=== PATIENT | female | born 1975 | race Caucasian/White ===

== ENCOUNTER 2023-10-05 15:34 | Emergency (ER) | payer MEDICARE, SELFPAY ==
[2023-10-05] VITALS (7 sets, daily range): BP systolic 108–148; BP diastolic 67–70; PULSE 75–93; RESP 13–20; TEMP 36.9; O2SAT 100
--- NOTE | ~2023-10-05 | CT_ITS ---
EXAMINATION: CT brain wo con DATE: 10/05/2023 18:35 INDICATION: Headaches. Numbness to the face. Fogginess. TECHNIQUE: Computed tomography (CT) of the head was performed without intravenous contrast. Sagittal and coronal reconstructions were performed. The mA was adjusted according to patient size. Iterative reconstruction technique was employed. The dose-length product was 681.00 mGy-cm. COMPARISON: None FINDINGS: No acute intracranial hemorrhage, acute infarction or abnormal extra axial fluid collection. Ventricl es are normal and symmetric. No mass/mass effect. There is mucosal thickening at the floor of the rig ht maxillary sinus which appears to surround a partially visualized tooth. Postoperative changes of a right middle turbinectomy and resection of the medial wall of the right maxillary sinus. The orbits and mastoid air cells are normal. IMPRESSION: 1. No acute intracranial process. Reviewed, dictated and finalized at location A. ET MAKER
--- NOTE | 2023-10-05 17:51 | ED.GENADULT ---
HPI - General Adult General Chief complaint: Allergic Reaction <HESHAM Garcia Last Filed: 10/05/23 18:03> Stated complaint: AMS, NUMB FACE, MIGRAINES <HESHAM Garcia Last Filed: 10/05/23 18:03> Time Seen by Provider: 10/05/23 17:52 <HESHAM Garcia Last Filed: 10/05/23 18:03> Focused HPI: Patient is a 47 y/o female who presents to the ED with c/o WRIGHT. Patient reports she has been having intermittent headaches for past few years, worsening over the past few weeks. Saw her PCP for this and started on Ubrelvy 3 weeks ago. She states she took this for 1 week but denied improvement of HAs. Current WRIGHT started last night and became severe today which prompted her presentation. She has not taken anything for pain. She complains of pressure in her frontal region. She also reports having dizziness, intermittent blurry vision, numbness double psych her face. She has also been having pain and numbness in her for the legs of the several weeks and was started on gabapentin by her primary care doctor on Wednesday. She is concerned she may be having a reaction to this. She states she feels foggy. Denies focal weakness, aphasia, slurred speech. Denies photophobia/phonophobia, N/V GENERAL: Anxious-appearing, well-nourished, and in no acute distress. HEAD: Normocephalic, atraumatic. EYES: PERRL EOMI conjunctiva clear. No nystagmus. CHEST: Clear to auscultation. ?No respiratory distress. HEART: Regular rate and rhythm.? NEURO: ?Alert and oriented x3. No focal deficits. Strength equal upper lower extremities bilaterally. Equal senior management consultant strength bilaterally PSYCH: Anxious, tearful. Patient screened in triage and initial orders placed.? ?Additional care and disposition to be based upon?diagnostic testing and treatment. <HESHAM Garcia Last Filed: 10/05/23 18:03> Related Data Allergies/adverse reactions: Allergies Allergy/AdvReac Type Severity Reaction Status Date / Time Penicillins Allergy Rash Verified 10/05/23 15:46 propoxyphene Allergy Rash Verified 10/05/23 15:46 [From Axel] <Luz Maria Knott PA-C - Last Filed: 10/05/23 18:03> Review of Systems Review of Systems: All systems as dictated in HPI <HESHAM Ross Last Filed: 10/06/23 02:31> Exam Narrative: GENERAL: Well-appearing, well-nourished, and in no acute distress. HEAD: Normocephalic, atraumatic. EYES: PERRLA and EOMI. ENT: Nares clear, no rhinorrhea or epistaxis. Mucous membranes moist. Oropharynx without tonsillar hypertrophy exudate or other lesions. NECK: Supple. No adenopathy or masses. CHEST: No respiratory distress. Clear to auscultation. No wheezes rales or rhonchi HEART: Regular rate and rhythm. No murmur heard. Normal peripheral pulses. ABDOMEN: Soft, nontender, nondistended, normal active bowel sounds. MSK: Normal range of motion. No edema. SKIN: Warm, dry, no rash. NEURO: Alert and oriented x4. No focal deficits. Ambulatory without difficulty PSYCH: Normal mood and affect. <HESHAM Ross Last Filed: 10/06/23 02:31> Course Vital Signs Vital signs: Vital Signs Temperature 98.5 F 10/05/23 15:43 Pulse Rate 87 10/05/23 15:43 Respiratory Rate 20 10/05/23 15:43 Blood Pressure 148/70 H 10/05/23 15:43 Pulse Oximetry 100 10/05/23 15:43 Temperature 98.5 F 10/05/23 15:43 Pulse Rate 75 10/05/23 21:16 Respiratory Rate 14 10/05/23 21:16 Blood Pressure 108/67 10/05/23 21:16 Pulse Oximetry 100 10/05/23 15:43 <HESHAM Garcia Last Filed: 10/05/23 18:03> Vital Signs Temperature 98.5 F 10/05/23 15:43 Pulse Rate 87 10/05/23 15:43 Respiratory Rate 20 10/05/23 15:43 Blood Pressure 148/70 H 10/05/23 15:43 Pulse Oximetry 100 10/05/23 15:43 Temperature 98.5 F 10/05/23 15:43 Pulse Rate 75 10/05/23 21:16 Respiratory Rate 14 10/05/23 21:16 Blood Pressure 108/67 02
[2023-10-05] MEDS: ACETAMINOPHEN 500 MG TABLET 1000 MG PO (18:21)
[2023-10-05] MEDS: diphenhydrAMINE HCl INJ 50 MG/ML VIAL 25 MG IV PUSH (18:22)
[2023-10-05] MEDS: METOCLOPRAMIDE HCL INJ 10 MG/2 ML VIAL IV PUSH (18:22)
[2023-10-05] MEDS: SODIUM CHLORIDE 0.9% IV 1,000 ML 999 ML IV CONT (18:26)
[2023-10-05] MEDS: KETOROLAC 30 MG/ML VIAL (*BKC) IV PUSH (20:30)
[2023-10-05] MEDS: MAGNESIUM SULF 1 GM/D5W 100 ML 1 GM/100 ML BAG IVPB (20:30)
== END 2023-10-05 21:51 | disposition home or self-care (01) ==
PROVIDERS: Emergency Provider Physician Assistant
DX: G43.909 Migraine, unspecified, not intractable, without status migrainosus (principal); T50.905A Adverse effect of unspecified drugs, medicaments and biological substances, initial encounter
CPT/HCPCS: 70450; 96361; 96365; 96375; 99284; A9270; J1200; J1885; J2765; J3475; J7030

== ENCOUNTER 2024-12-08 | Day surgery (SDC) | payer MEDICARE, SELFPAY ==
[2024-11-06 13:14] VITALS: BMI 32.1
--- OUTSIDE RECORDS SUMMARY | 2024-11-14 00:20 | XMS_ITS ---
Author Organization [facility] Address [address] [place] [address] Care Team Providers Care Tool Inspector Name Role Phone Roberto Carroll Primary Care Provider [phone] Karl Robles Unavailable [phone] REASON FOR VISIT Request for Linzess script. Medications Medication SIG (Take, Route, Fr equency, Duration) Notes Start Date End Date Status Linzess 290 MCG 1 capsule at least 30 minutes before the first meal of the day on an empty stomach Orally Once a day; Duration: 30 days As needed 09/19/2024 Active traZODone HCl 100 MG 2 tablet Orally Once a day; Duration: 30 days at bedtime Active Encounters Encounter Location Date Provider Diagnosis [address] [address] 09/18/2024 Karl Robles Plan Of Treatment Medication Medication Name Sig Start Date Stop Date Notes Linzess 290 MCG 1 capsule at least 3 0 minutes before the first meal of the day on an empty stomach Orally Once a day; Duration: 30 days 09/19/2024 traZODone HCl 100 MG 2 tablet Orally Onc e a day; Duration: 30 days Next Appt Details Provider Name:Roberto Fang en, 12/01/2024 11:00:00 AM, [address] [place] [address], [phone], [phone] Progress Notes * Giulia ORTIZOB:1975 (48 yo F)Acc No.[id number]:09/18/2024 Patient: Elise Anuja PATTON :1975 A ge:48 Y S ex:Female Phone: Address: [address], [place], [address] * Refills Refill traZODone HCl Tablet, 100 MG, Orally, 60 Tablet, 2 tablet, Once a day, at bedtime, 30 days, Refills=5 Start Linzess Capsule, 290 MCG, Orally, 30, 1 capsule at least 30 minutes before the first meal of the day on an empty stomach, Once a day, As needed, 30 days Subjective: * Chief Complaints: * R equest for Linzess script. * Medical History: * Surgical History: * Hospitalization/Major Diagno stic Procedure: * Medications: Objective: * Physical Examination: Plan: * Treatment: * Procedure Codes: Billing Information: * Visit Code: * Procedure Codes: * true * Date: Generated for Laureano pennington/Jessica/Kena on: 0 11/14/2024 12:20 AM CDT
--- OUTSIDE RECORDS SUMMARY | 2024-11-14 00:20 | XMS_ITS ---
Author Organization [facility] Address [address] [place] [address] Care Team Providers Care Sports Equipment Repairer Name Role Phone Dr. Pj Carroll Primary Care Provider Dr. Robin Bales Unavailable [phone] Aimee Mendez Unavailable [phone] REASON FOR VISIT Refills Medications Medication SIG (Take, Route, Frequency, Duration) Notes Start Date End Date Status Emgality 120 MG/ML 2 injections as LOADING DOSE for the first month Subcutaneous once for 28 days 09/13/2024 Active Emgality 120 MG/ML 1 injection as maintenance dose Subcutaneous once every 4 weeks for 28 days To start 4 weeks after the loading dose 10/11/2024 Active Encounters Encounter Location Date Provider Diagnosis [facility] [address] [place] [address] 09/05/2024 Aimee Mendez Migraine without aura, not intractable, without status migrainosus G43.009 Assessments Encounter Date Diagnosis (ICD Code) Assessment Notes Treatment Notes Treatment Clinical Notes Section Notes 09/05/2024 Migraine without aura, not intractable, without status migrainosus (ICD-10 - G43.009) Plan Of Treatment Medication Medication Name Sig Start Date Stop Date Notes Emgality 120 MG/ML 2 injections as LOAD ING DOSE for the first month Subcutaneous once for 28 days 09/13/2024 Emgality 120 MG/ML 1 injection as maintenance dose Subcutaneous once every 4 weeks for 28 days 10/11/2024 To start 4 weeks after the loading dose Next Appt Details Provider Name:Shyam Martinez/08/2025 07:30:00 AM, [address], [address], [place], [address], Progress Notes * Elmira ORTIZNatividadOB:1975 (48 yo F)Acc No.[id number]:09/05/2024 Patient: Anuja CLARK :1975 A ge:48 Y S ex:Female Address:[address] [place] [address] [place] [address] * Refills Refill Emgality Solution Auto-injector, 120 MG/ML, Subcutaneous, 1, 1 injection as maintenance dose, once every 4 weeks, 28 days, Refills=5 Start Emgality Solution Auto-injector, 120 MG/ML, Subcutaneous, 2, 2 injections as LOADING DOSE for the first month, once, 28 days, Refills=0 * true * Date: Generated for Laureano pennington/Jessica/Marioitting on: 0 11/14/2024 12:20 AM CDT
--- OUTSIDE RECORDS SUMMARY | 2024-11-14 00:20 | XMS_ITS | Patient Health Record ---
Author Organization [facility] Address [address] [place] [address] Care Team Providers Care Risk Mgr Name Role Phone Dr. Pj Carroll Primary Care Provider UnaDr. Robin Fairchild Unavailable [phone] [facility], Provider Unavailable Unavailab Aimee Culver Unavailable [phone] Allergies Allergen (clinical drug ingredient) Drug/Non Drug Allergy documented on EMR Reaction Allergy Type Onset Date Status DARVOCET (uncoded) rash Allergy A ctive penicillin V Penicillin V Potassium rash Drug Allergy Active Results Component Value Reference Range Notes ABN Option 3 Reviewed date:12/18/2023 08:59:41 AM Interpretation: Performing Lab:[facility] [id number], Phone - [phone], Director - Anastasia Notes/Report: ABN Option 3 One or more tests were removed at the request of the patient and may not be represented on this report. As a result, some or all of the tests originally requested may not have been performed or may be reported separately. Please contact your patient regarding any necessary follow-up. -Rheumatoid Arthritis Factor Reviewed date:12/18/2023 09:00:03 AM Interpretation:Normal Performing Lab:[facility], [address] [place], [place] [id number], Phone - [phone], Director - Ansatasia Notes/Report: Rheumatoid Factor (RF) <10.0 <14.0 IU/mL -Aldolase Reviewed date:12/20/2023 02:19:40 PM Interpretation:Normal Performing Lab:[facility], [address] [place], [place] [id number], Phone - [phone], Director - Anastasia Notes/Report: Aldolase 4.7 3.3-10.3 U/L -Creatine Kinase,Total,Serum Reviewed date:12/18/2023 08:59:49 AM Interpretation:Normal Performing Lab:[facility] [place], [address] [place], [place] [id number], Phone - [phone], Director - [facility] Notes/Report: Creatine Kinase,Total 75 32-182 U/L Reason For Referral No Information Medications Medication SIG (Take, Route, Frequency, Duration) Notes Start Date End Date Status Venlafaxine HCl ER 150 MG 1 cap(s) orally once a day Active traZODone HCl 50 MG as directed orally Active clonazePAM 0.5 MG 1 tab(s) orally 2 times daily Active Emgality 120 MG/ML 2 injections as LOADING DOSE for the first month Subcutaneous once for 28 days 09/13/2024 Active Emgality 120 MG/ML 1 injection as maintenance dose Subcutaneous once every 4 weeks for 28 days To start 4 weeks after the loading dose 10/11/2024 Active Zavzpret 10 MG 1 SPRAY INTRANASALLY ONCE DAILY, NO REPEAT DOSE *Please review and pick correct strength-formulat ion from [employer] options. If intended option is not shown, discontinue and re-order from Quick Search* 12/15/2023 Active Valium 5 MG 1 tab orally 20 minutes prior to MRI for 1 days 11/11/2023 Not-Taking Rizatriptan Benzoate 10 MG 1 tab orally once, can repeat x1 after 2-4 hours for 30 days 11/11/2023 Not-Taking Social History Tobacco Use: Social History Observation Description Date Details (start date - stop date) Never Smoker NA - NA Tobacco Control (Standard) Question Answer Notes Tobacco use: Nonsmoker Problems Problem Type SNOMED Code ICD Code Onset Dates Problem Status W/U Status Risk Notes Problem Chronic migraine without aura, non-refractory (disorder) (080389572222414) Migraine without aura, not intractable, without status migrainosus (G43.009) Active confirmed Problem Migraine with aura (5826998) Migraine with aura, not intractable, without status migrainosus (G43.109) Active confirmed Problem Chronic migraine without aura, non-intractable (550943249174316) Chronic migraine without aura, not intractable, without status migrainosus (G43.709) Active confirmed Problem Drug induced headache (804500000346341) Drug-induced headache, not elsewhere classified, not intractable (G44.40) Active confirmed Problem Degeneration of cervical intervertebral disc (98584915) Other cervical disc degeneration, unspecified cervical region (M50.30) Active confirmed Problem Cervicalgia (12666760) Cervicalgia (M54.2) Active confirmed Problem Fibromyalgia (239754058) Fibromyalgia (M79.7) Active confirmed Problem Paresthesia (finding) (03679117) Paresthesia of skin (R20.2) Active confirmed Problem Chronic fatigue syndrome (disorder) (12037317) Chronic fatigue, unspecified (R53.82) Active confirmed Problem Muscle pain (51905401) Myalgia, unspecified site (M79.10) Active confirmed Vital Signs Respiratory Rate 17 /min 06/29/2024 Oximetry 98 % 06/29/2024 Blood pressure diastolic 85 mm Hg 06/29/2024 Height 65 in 06/29/2024 Blood pressure systolic 139 mm Hg 06/29/2024 Weight 194.8 lbs 06/29/2024 BMI 32.41 kg/m2 06/29/2024 Encounters Encounter Location Date Provider Diagnosis [address] [address] 02/05/2024 Provider [facility]Migration Migraine without aura, not intractable, without status migrainosus G43.009 and Fibromyalgia M79.7 [facility] [address] [place] [address] 12/15/2023 Robin Montana Chronic migraine without aura, not intractable, without status migrainosus G43.709 ; Paresthesia of skin R20.2 ; Myalgia, unspecified site M79.10 ; Cervicalgia M54.2 and Other cervical disc degeneration, unspecified cervical region M50.30 [facility] [address] [place] [address] 01/20/2024 Robin Montana Migraine without aura, not intractable, without status migrainosus G43.009 ; Fibromyalgia M79.7 and Cervicalgia M54.2 [facility] [address] [place] [address] 04/06/2024 Robin Montana Migraine without aura, not intractable, without status migrainosus G43.009 ; Fibromyalgia M79.7 and Cervicalgia M54.[address] [address] 06/29/2024 Aimee Mendez Migraine without aura, not intractable, without status migrainosus G43.009 ; Fibromyalgia M79.7 and Cervicalgia M54.2 [facility] [place] [address] [place] [address] 12/09/2023 Robin Nan [facility] [place] [address] [place] [address] 12/15/2023 Robin Montana Chronic migraine without aura, not intractable, without status migrainosus G43.709 [facility] [place] [address] [place] [address] 12/16/2023 Robin Nan [facility] [place] [address] [place] [address] 12/21/2023 Robin Nan [facility] [place] [address] [place] [address] 04/06/2024 Robin Nan [facility] [place] [address] [place] [address] 06/28/2024 Robin Montana [address] [place] [address] 09/05/2024 Aimee Mendez Migraine without aura, not intractable, without status migrainosus G43.009 Assessments Encounter Date Diagnosis (ICD Code) Assessment Notes Treatment Notes Treatment Clinical Notes Section Notes 12/15/2023 Chronic migraine without aura, not intractable, without status migrainosus (ICD-10 - G43.709) -Abortive treatment plan: Zavzpret NS.-Preventive treatment plan: Start Ajovy. Patient counseled r.e. potential side effects.-Educated the patient on migraine lifestyle recommendations. I recommended the following measures: avoid known triggers of migraine, drink > 100 fluid ounces of non-caffeinated fluid daily, limit caffeine to 2 servings/day, sleep 7-8 hours/night and address any sleep concerns with us and report symptoms of snoring or fatigue; healthy management of stress; avoid treating headaches more than 2 days/week with abortive medication unless approved in treatment plan; can take Riboflavin 400 mg and Magnesium 500 mg daily as supplements; keep scheduled follow-up appointments 12/15/2023 Paresthesia of skin (ICD-10 - R20.2) Additional labs: Vit D (25-OH), A1c, CPK, aldolase, RF ([facility]). Consider NCS/EMG and/or skin punch to evaluate for SFN, although I will see labs first, also I suspect that this is more likely fibromyalgia than a peripheral nerve or muscle disease. 12/15/2023 Chronic migraine without aura, not intractable, without status migrainosus (ICD-10 - G43.709) 01/20/2024 Migraine without aura, not intractable, without status migrainosus (ICD-10 - G43.009) -Abortive treatment plan: OTC analgesics, if necessary Zavzpret.-Preventiv e treatment plan: Aimovig 70 mg.-Educated the patient on migraine lifestyle recommendations. I recommended the following measures: avoid known triggers of migraine, drink > 100 fluid ounces of non-caffeinated fluid daily, limit caffeine to 2 servings/day, sleep 7-8 hours/night and address any sleep concerns with us and report symptoms of snoring or fatigue; healthy management of stress; avoid treating headaches more than 2 days/week with abortive medication unless approved in treatment plan; can take Riboflavin 400 mg and Magnesium 500 mg daily as supplements; keep scheduled follow-up appointments 01/20/2024 Fibromyalgia (ICD-10 - M79.7) Monitor, symptomatically improved. Continue venlafaxine. I don't think we need to do further testing. 02/05/2024 Migraine without aura, not intractable, without status migrainosus (ICD-10 - G43.009) 02/05/2024 Fibromyalgia (ICD-10 - M79.7) 04/06/2024 Migraine without aura, not intractable, without status migrainosus (ICD-10 - G43.009) -Abortive treatment plan: Samples of Nurtec given.-Preventive treatment plan: D/C Aimovig. Sample of Emgality loading dose 240 mg SQ administered today. Prescribe 120 mg SQ q4 weeks. -Educated the patient on migraine lifestyle recommendations. I recommended the following measures: avoid known triggers of migraine, drink > 100 fluid ounces of non-caffeinated fluid daily, limit caffeine to 2 servings/day, sleep 7-8 hours/night and address any sleep concerns with us and report symptoms of snoring or fatigue; healthy management of stress; avoid treating headaches more than 2 days/week with abortive medication unless approved in treatment plan; can take Riboflavin 400 mg and Magnesium 500 mg daily as supplements; keep scheduled follow-up appointments 04/06/2024 Fibromyalgia (ICD-10 - M79.7) Continue Venlafaxine at present dose. 06/29/2024 Migraine without aura, not intractable, without status migrainosus (ICD-10 - G43.009) -Abortive treatment plan: Continue Zavzpret. Continue OTC analgesics as needed. -Preventive treatment plan: Continue Emgality.-Educated the patient on migraine lifestyle recommendations. I recommended the following measures: avoid known triggers of migraine, drink > 100 fluid ounces of non-caffeinated fluid daily, limit caffeine to 2 servings/day, sleep 7-8 hours/night and address any sleep concerns with us and report symptoms of snoring or fatigue; healthy management of stress; avoid treating headaches more than 2 days/week with abortive medication unless approved in treatment plan; can take Riboflavin 400 mg and Magnesium 500 mg daily as supplements; keep scheduled follow-up appointments 06/29/2024 Fibromyalgia (ICD-10 - M79.7) Continue venlafaxine at present dose. 09/05/2024 Migraine without aura, not intractable, without status migrainosus (ICD-10 - G43.009) 06/29/2024 Cervicalgia (ICD-10 - M54.2) Continue venlafaxine at present dose. 04/06/2024 Cervicalgia (ICD-10 - M54.2) 01/20/2024 Cervicalgia (ICD-10 - M54.2) Recommended chiropractic evaluation. 12/15/2023 Myalgia, unspecified site (ICD-10 - M79.10) Additional labs: Vit D (25-OH), A1c, CPK, aldolase, RF ([facility]). Consider NCS/EMG and/or skin punch to evaluate for SFN, although I will see labs first, also I suspect that this is more likely fibromyalgia than a peripheral nerve or muscle disease. 12/15/2023 Cervicalgia (ICD-10 - M54.2) Recommend trial of Chiropractic. 12/15/2023 Other cervical disc degeneration, unspecified cervical region (ICD-10 - M50.30) Recommend trial of Chiropractic. Plan Of Treatment Pending Test Test Name Order Date -Hemoglobin A1c 11/11/2023 -Hemoglobin A1c 12/15/2023 -Vitamin D, 25-Hydroxy 12/15/2023 -Vitamin D, 25-Hydroxy 11/11/2023 MRI : Brain (with and without gadolinium ) 11/11/2023 MRI : Spine, Cervical (with and without gadolinium) 11/11/2023 Next Appt Details Provider Name:Aimee betts, 12/28/2024 07:30:00 AM, [address], [place], [address], Insurance Providers Payer Name Payer Address Payer Phone Subscriber Number Group Number Insured Name Patient Relationship to Insured Coverage Start Date Coverage End Date [employer] (Medicare) Attention Claims [address] [place] [address] [id number] Anuja Schwab Self - patient is the insured Medical (General) History Medical History History ICD Code Obesity Prior h/o diabetes meliitus - reports re solved after weight loss Depression Migraine Fibromyalgia Other specified diabetes mellitus withou t complications E13.9
--- OUTSIDE RECORDS SUMMARY | 2024-11-14 00:20 | XMS_ITS ---
Author Organization [facility] dicine Address [address] [place] [address] Care Team Providers Care Furniture Associate Name Role Phone Roberto Carroll Primary Care Provider [phone] REASON FOR VISIT Rx refill failure Medications Medication SIG (Take, Route, Frequency, Duration) Notes Start Date End Date Status Venlafaxine HCl ER 150 MG 1 capsule Oral ly daily; Duration: 90 days Active Encounters Encounter Location Date Provider Diagnosis [address] [address] 11/02/2024 Roberto Carroll Plan Of Treatment Medication Medication Name Sig Start Date Stop Date Notes Venlafaxine HCl ER 150 MG 1 capsule Oral ly daily; Duration: 90 days Next Appt Details Provider Name:Roebrto fagan, 12/01/2024 11:00:00 AM, [address] [place] [address], [phone], [phone] Progress Notes * Giulia ORTIZOB:1975 (49 yo F)Acc No.[id number]:11/02/2024 Patient: Anuja CLARK :1975 A ge:49 Y S ex:Female Phone: Address:[place], [address] * Refills Refill Venlafaxine HCl ER Capsule Extended Release 24 Hour, 150 MG, Orally, 90 Capsule, 1 capsule, daily, 90 days, Refills=0 Subjective: * Chief Complaints: * R x refill failure * Medical History: * Surgical History: * Hospitalization/Major Diagno stic Procedure: * Medications: Objective: * Physical Examination: Plan: * Treatment: * Procedure Codes: Billing Information: * Visit Code: * Procedure Codes: * true * Date: Generated for Laureano pennington/Jessica/Kena on: 0 11/14/2024 12:20 AM CDT
--- OUTSIDE RECORDS SUMMARY | 2024-11-14 00:21 | XMS_ITS | Referral Summary ---
Author Organization [facility] Address [address] [address] Care Team Providers Care Inventory Administrator Name Role Phone Karl Robles Primary Care Provider Unava ilable Allergies Active Allergy Reactions Criticality Noted Date Comments Penicillins Unknown 02/21/2023 Medications polyethylene glycol (MIRALAX) 17 gram/dose powder Take 17 g by mouth daily for 5 days Do not begin until after you finish your GoLYTELY treatment 17 g 3 Active ondansetron (ZOFRAN) 4 mg tablet Take 1 tablet (4 mg total) by mouth every 8 (eight) hours as needed for nausea or vomiting for up to 15 doses 15 tablet 3 Active Social History Tobacco Use Types Packs/Day Years Used Date Smoking Tobacco: Never Assessed Personal Safety Answer Date Recorded Getting School Help Needed Not on file 05/06 Comments No Sex and Gender Information Value Date Recorded Sex Assigned at Not on file Legal Sex Female 7:46 AM [employer] Gender Identity Not on file Sexual Orientation Not on file Last Filed Vital Signs Vital Sign Reading Time Taken Comments Blood Pressure 111/84 03/26/2023 2:56 PM CDT Pulse 80 03/26/2023 2:56 PM CDT Temperature 37.3 C (99.1 F) 03/26/2023 10:04 AM CDT Respiratory Rate 14 03/26/2023 2:56 PM CDT Oxygen Saturation 98% 03/26/2023 2:56 PM CDT Inhaled Oxygen Concentration - - Weight 72.6 kg (160 lb) 03/26/2023 10:04 AM CDT Height 165.1 cm (5' 5 ) 03/26/2023 10:04 AM CDT Body Mass Index 26.63 03/26/2023 10:04 AM CDT Plan of Treatment Not on file Insurance MEDICARE [employer] MEDICARE [employer] Care Teams Inventory Administrator Relationship Specialty Start Date End Date Karl Robles PCP - General 10/20/23
--- OUTSIDE RECORDS SUMMARY | 2024-11-14 00:21 | XMS_ITS | Patient Health Record ---
Author Organization [facility] Address [address] [place] [address] Care Team Providers Care Cider Maker Name Role Phone Glen Roberto Primary Care Provider [phone] Karl Robles Unavailable [phone] Kayli Mtz Unavailable [phone] Migration, Provider Unavailable Unavailable Allergies Allergen (clinical drug ingredient) Drug/Non Drug Allergy documented on EMR Reaction Allergy Type Onset Date Status Darvon Unknown Drug Allergy 06/09/2021 Active Substance with penicillin structure and antibacterial mechanism of action (substance) Penicillins Unknown Drug Allergy 06/09/2021 Active propranolol Propranolol Unknown Drug Allergy 06/09/2021 Ac tive trazodone traZODone Delete Reason: Entered in Error. Drug Allergy 04/13/2022 Inactive Results Component Value Reference Range Notes CBC With Differential/Platel et Reviewed date:06/27/2024 12:00:00 AM Interpretation: Performing Lab: Notes/Report: Baso (Absolute) 0.0 x10E3/uL Basos 0 % Eos 2 % Eos (Absolute) 0.1 x10E3/uL Hematocrit 40.0 % Hemoglobin 12.9 g/dL Immature Grans (Abs) 0.0 x10E3/uL Immature Granulocytes 0 % Lymphs 28 % Lymphs (Absolute) 1.7 x10E3/uL MCH 29.0 pg MCHC 32.3 g/dL MCV 90 fL Monocytes 7 % Monocytes(Absolute) 0.4 x10E3/uL Neutrophils 63 % Neutrophils (Absolute) 3.8 x10E3/uL Platelets 276 x10E3/uL RBC 4.45 x10E6/uL RDW 13.0 % WBC 6.0 x10E3/uL Comp. Metabolic Panel (14) Reviewed date:06/27/2024 12:00:00 AM Interpretation: Performing Lab: Notes/Report: Albumin 3.9 g/dL Alkaline Phosphatase 110 IU/L ALT (SGPT) 14 IU/L AST (SGOT) 18 IU/L Bilirubin, Total 0.2 mg/dL BUN 9 mg/dL BUN/Creatinine Ratio 12 Calcium 9.3 mg/dL Carbon Dioxide, Total 23 mmol/L Chloride 106 mmol/L Creatinine 0.76 mg/dL eGFR 96 mL/min/1.73 Globulin, Total 3.0 g/dL Glucose 113 mg/dL Potassium 5.1 mmol/L Protein, Total 6.9 g/dL Sodium 141 mmol/L Estradiol Reviewed date:06/27/2024 12:00:00 AM Interpretation: Performing Lab: Notes/Report: Estradiol 45.6 pg/mL FSH and LH Reviewed date:06/27/2024 12:00:00 AM Interpretation: Performing Lab: Notes/Report: FSH 8.9 mIU/mL LH 10.2 mIU/mL Hemoglobin A1c Reviewed date:06/27/2024 12:00:00 AM Interpretation: Performing Lab: Notes/Report: Hemoglobin A1c 6.7 % Lipid Panel Reviewed date:06/27/2024 12:00:00 AM Interpretation: Performing Lab: Notes/Report: Cholesterol, Total 160 mg/dL HDL Cholesterol 43 mg/dL LDL Chol Calc (NIH) 98 mg/dL Triglycerides 103 mg/dL VLDL Cholesterol Иван 19 mg/dL TSH+Free T4 Reviewed date:06/27/2024 12:00:00 AM Interpretation: Performing Lab: Notes/Report: T4,Free(Direct) 1.11 ng/dL TSH 1.070 uIU/mL Vitamin B12 and Folate Reviewed date:06/27/2024 12:00:00 AM Interpretation: Performing Lab: Notes/Report: Folate (Folic Acid), Serum >20.0 ng/mL Vitamin B12 646 pg/mL Vitamin D, 25-Hydroxy Reviewed date:06/27/2024 12:00:00 AM Interpretation: Performing Lab: Notes/Report: Vitamin D, 25-Hydroxy 30.5 ng/mL Reason For Referral Reason Bulging Cervical Dis c with spinal stenosis and cervicalgia Diagnosis 1 Bulging of cervical intervertebral disc (M50.30) Referral Organization [facility] Referring Provider First Name Kayli Referring Provider Last Name Bibi Referring Provider Speciality Nurse Prac titioner Referred Provider Specialty Neurosurgery General Notes Kyali Mtz A PRN 08/30/2024 04:39:40 PM POLYTECHNIC TEACHER >Refer to Dr. Eleni Adrian at [facility] in [place], [place] (neurosurgeon), Olga Esparza 09/04/2024 11:19:09 AM POLYTECHNIC TEACHER >Referral faxed to Arlen Ponce Cortney 09/12/2024 10:00:52 AM POLYTECHNIC TEACHER >Received document stating Dr. Lewis received the referral and reviewed. They feel routine appt is adequate for this pt. and will be contacting her to schedule. Referral Priority Urgent Reason chronic constipation Diagnosis 1 Chronic constipation (K59.09) Referral Organization [facility] Referring Provider First Name Karl Referring Provider Last Name Travis Referring Provider Speciality Physician Commercial Shrimping Captain Referred Provider Polo Blanco Referred Provider Specialty Gastroentero logy General Notes Vilma Olga 0 10/12/2024 11:29:43 AM POLYTECHNIC TEACHER >Faxed referral to Dr. Blanco [phone] Referral Priority Routine Medications Medication SIG (Take, Route, Frequency, Duration) Notes Start Date End Date Status Propranolol HCl 10 MG 1 tablet Orally every 12 hrs; Duration: 30 days As needed Active Linzess 290 MCG 1 capsule at least 30 minutes before the first meal of the day on an empty stomach Orally Once a day; Duration: 30 days As needed 09/19/2024 Active traMADol HCl 50 MG 1 tablet as needed Orally every 8 hours; Duration: 30 days 08/30/2024 Not-Taking Venlafaxine HCl ER 150 MG 1 capsule Orally daily; Duration: 90 days Active clonazePAM 0.5 MG 1 tablet Orally Once a day; Duration: 30 days As needed 10/09/2024 Active Lidocaine 5 % 1 patch remove after 12 hours Externally Once a day; Duration: 14 days 08/30/2024 Not-Taking predniSONE 20 MG 3 tablets once a day for 3 days, 2 tablets once a day for 3 days, 1 tablet once a day for 3 days Orally Once a day; Duration: 9 days 08/30/2024 Not-Taking traZODone HCl 100 MG 2 tablet Orally Once a day; Duration: 30 days at bedtime Active metFORMIN HCl 500 MG 1 Oral two times a day; Duration: 90 06/29/2024 12/25/2024 Active Emgality Pen subcutaneous; Duration: 0 *Reorder from [facility] for eRx and Interaction Alerts* 06/19/2024 Active Immunizations Vaccine Route Administration Date Status Comme nts Pfizer-Biontech Covid-19 Vaccine 1st dose Unknown 04/09/2021 Administered ,sourcename : Historical information -from other provider Source VFC Code: : Pfizer-Biontech Covid-19 Vaccine 1st dose Unknown 05/01/2021 Administered [facility] ,sourcename : Historical information -source unspecified Source VFC Code: : Influenza, quadrivalent (IIV4), split virus, 6-35 months dosage IM Intramuscular 06/12/2021 Administered ,sourcename : N ew immunization record ,immstatus : Complete Influenza, quadrivalent (IIV4), split virus, 6-35 months dosage IM Intramuscular 06/01/2023 Administered ,sourcename : N ew immunization record ,immstatus : Complete Problems Problem Type SNOMED Code ICD Code Onset Dates Problem Status W/U Status Risk Notes Problem 81262756 Other chronic pain (G89.29) Active confirmed Problem 4398496896762 Cervicalgia (M54.2) Active confirmed Problem 049947514 Bulging of cervical intervertebral disc (M50.30) Active confirmed Problem Vitamin D deficiency (40810904) Vitamin D deficiency, unspecified (E55.9) 06/12/20 Active confirmed Problem Dyspareunia (74243008) Unspecified dyspareunia (N94.10) 10/06/19 Active confirmed Problem High risk heterosexual behavior (281018636280191) High risk heterosexual behavior (Z72.51) 10/06/19 23 Active confirmed Problem 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) Generalized hyperhidrosis (R61) 06/19/20 24 Active confirmed Problem Flushing (59773218) Flushing (R23.2) 06/19/20 24 Active confirmed Problem Paresthesia (finding) (79347523) Paresthesia of skin (R20.2) 10/15/19 24 Active confirmed Problem Palpitations (30940685) Palpitations (R00.2) 06/19/20 24 Active confirmed Problem 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) 03/31/20 23 Active confirmed Problem Abnormal vaginal bleeding (071397018) Other specified abnormal uterine and vaginal bleeding (N93.8) 06/01/20 23 Active confirmed Problem Essential hypertension (94790251) Essential (primary) hypertension (I10) 06/19/20 24 Active confirmed Problem Bilateral tinnitus (9783145251531) Tinnitus, bilateral (H93.13) 11/12/19 24 Active confirmed Problem Insomnia (556429290) Insomnia, unspecified (G47.00) 09/20/19 24 Active confirmed Problem Migraine without aura, not refractory (disorder) (488600710) Migraine, unspecified, not intractable, without status migrainosus (G43.909) 09/20/19 24 Active confirmed Problem Mental disorder (87665757) Mental disorder, not otherwise specified (F99) 06/12/20 21 Active confirmed Problem Anxiety disorder (457269217) Anxiety disorder, unspecified (F41.9) 08/03/20 23 Active confirmed Problem Moderate recurrent major depression (16048076) Major depressive disorder, recurrent, moderate (F33.1) 03/31/20 23 Active confirmed Problem Overweight (996933486) Overweight (E66.3) 06/29/20 24 Active confirmed Problem Genital herpes simplex (41576477) Herpesviral infection of urogenital system, 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) 01/29/20 23 Active confirmed Problem Hyperglycemia due to type 2 diabetes mellitus (644170984414862) Type 2 diabetes mellitus with hyperglycemia (E11.65) 06/29/20 24 Active confirmed Vital Signs Heart Rate 94 /min 09/14/2024 Temperature 98.4 degrees Fahrenheit 09/14/2024 Respiratory Rate 16 /min 08/30/2024 Blood pressure diastolic 82 mm Hg 09/14/2024 Oximetry 98 % 09/14/2024 Height-cm 165.1 cm 09/14/2024 Weight-kg 88.27 kg 09/14/2024 Height 65.00 in 09/14/2024 Blood pressure systolic 132 mm Hg 09/14/2024 Weight 194.6 lbs 09/14/2024 BMI 32.38 kg/m2 09/14/2024 Encounters Encounter Location Date Provider Diagnosis [address] [address] 12/10/2023 Provider Migration Migraine, unspecifie d, not intractable, without status migrainosus G43.[address] [address] 06/19/2024 Kayli Mtz Palpitations R00.2 ; Anxiety disorder, unspecified F41.9 ; Generalized hyperhidrosis R61 ; Flushing R23.2 and Essential (primary) hypertension I10 [address] [address] 06/29/2024 Kayli Mtz Type 2 diabetes mellitus with hyperglycemia E11.65 ; Essential (primary) hypertension I10 ; Anxiety disorder, unspecified F41.9 and Overweight E66.[address] [address] 08/30/2024 Kayli Mtz Cervical spinal stenosis M48.02 ; Bulging of cervical intervertebral disc M50.30 and Cervicalgia M54.[address] [address] 09/14/2024 [facility] Type 2 diabetes mellitus with hyperglycemia E11.65 and Chronic constipation K59.[address] [address] 07/22/2024 Provider Migration [address] [address] 07/23/2024 Provider Migration [address] [address] 08/30/2024 Roberto Carroll [address] [address] 08/31/2024 Roberto Carroll Cervicalgia M54.2 ; Bulging of cervical intervertebral disc M50.30 and Cervical spinal stenosis M48.[address] [address] 09/15/[address] [address] 09/15/[address] [address] 09/18/[address] [place] [address] 11/02/2024 Roberto Carroll Assessments Encounter Date Diagnosis (ICD Code) Assessment Notes Treat ment Notes Treatment Clinical Notes 12/10/2023 Migraine, unspecified, not intractable, without status migrainosus (ICD-10 - G43.909) 06/19/2024 Anxiety disorder, unspecified (ICD-10 - F41.9) 06/19/2024 Essential (primary) hypertension (ICD-10 - I10) 06/19/2024 Palpitations (ICD-10 - R00.2) 06/19/2024 Flushing (ICD-10 - R23.2) 06/19/2024 Generalized hyperhidrosis (ICD-10 - R61) 06/29/2024 Type 2 diabetes mellitus with hyperglycemia (ICD-10 - E11.65) 06/29/2024 Overweight (ICD-10 - E66.3) 06/29/2024 Anxiety disorder, unspecified (ICD-10 - F41.9) 06/29/2024 Essential (primary) hypertension (ICD-10 - I10) 08/30/2024 Cervical spinal stenosis (ICD-10 - M48.02) 08/30/2024 Bulging of cervical intervertebral disc (ICD-10 - M50.30) - Neck pain with disc bulge and stenosis in the cervical spine and thoracic spine, specifically affecting C5 to T1. Symptoms include pain, numbness, and tingling, with decreased ROM due to pain/stiffness and potentially causing headaches. Previous MRI in November 2023 indicated disc bulge and stenosis.- Referral to a neurosurgeon for further evaluation and potential repair/pain management.- At this time will prescribe a 9 day oral steroid taper. - Prescribe Tramadol to take as needed for pain management with side effects discussed with patient. Advised to not take if going to operate machinery. - Consider Lyrica or other pain medication if Tramadol is ineffective. - Prescribe Lidocaine patches for localized pain relief. - Advised against lifting heavy objects and recommend moderation in activities. 08/31/2024 Cervicalgia (ICD-10 - M54.2) 08/31/2024 Bulging of cervical intervertebral disc (ICD-10 - M50.30) 09/14/2024 Type 2 diabetes mellitus with hyperglycemia (ICD-10 - E11.65) Recommend glucose be taken on a scheduled basis, 1-2 hours after a large meal and once fasting would be a good routine to correlate sugar levels. A1c obtained. If post meal sugars are high may target with alternative diabetes medication. Continue metformin, previous A1c 3 months ago was 6.7. 09/14/2024 Chronic constipation (ICD-10 - K59.09) Linzess samples given to patient, 1 sample of 72mg and 1 of 290mg. KUB ordered to evaluate stool burden. Continue regimen with miralax and stool softeners. May continue enemas or suppositories PRN. Recommend trying senna again. Sending referral to GI for further eval of chronic constipation. 08/31/2024 Cervical spinal stenosis (ICD-10 - M48.02) 08/30/2024 Cervicalgia (ICD-10 - M54.2) Plan Of Treatment Pending Test Test Name Order Date X ray : Kidneys, Ureters and Bladder (KU B) 09/14/2024 Hemoglobin A1C 09/14/2024 Next Appt Details Provider Name:Roberto fagan, 12/01/2024 11:00:00 AM, [address] [place], [address], [phone] Insurance Providers Payer Name Payer Address Payer Phone Subscriber Number Group Number Insured Name Patient Relationship to Insured Coverage Start Date Coverage End Date NGS Medicare RHC [address] [place] [address] [id number] Zaheer, Anuja Self - patient is the insured 2 [facility] of Public Aid [facility] [address] [address] [place] [address] [id number] Zaheer, Anuja Self - patient is the insured 2 5 NGS Medicare B [address] [place] [address] [id number] Zaheer, Anuja Self - patient is the insured Medical (General) History Medical History History ICD Code Herpesviral infection of urogenital syst em, unspecified A60.00 Type 2 diabetes mellitus with hyperglyce rebecca E11.65 Vitamin D deficiency, unspecified E55.9 Major depressive disorder, recurrent, mo derate F33.1 Anxiety disorder, unspecified F41.9 Migraine, unspecified, not intractable, without status migrainosus G43.909 Insomnia, unspecified G47.00 Essential (primary) hypertension I10 Generalized hyperhidrosis R61 High risk heterosexual behavior Z72.51 Surgical History Surgery Date(Month/Year) Tubal ligation sinus surgery delivery
--- OUTSIDE RECORDS SUMMARY | 2024-11-14 00:21 | XMS_ITS ---
Author Organization [facility] Address [address] [place] [address] Care Team Providers Care Cost And Sales Record Supervisor Name Role Phone Roberto Carroll Primary Care Provider [phone] Karl Robles Unavailable [phone] REASON FOR VISIT KUB Encounters Encounter Location Date Provider Diagnosis [address] [address] 09/15/2024 Karl Robles Plan Of Treatment Next Appt Details Provider Name:Roberto Monteroshreyas en, 12/01/2024 11:00:00 AM, [address] [place] [address], [address], [phone] Progress Notes * Giulia ORTIZOB:1975 (48 yo F)Acc No.[id number]:09/15/2024 Patient: Anuja CLARK :1975 A ge:48 Y S ex:Female Phone: Address:[address] , [place], [address] * true * Date: Generated for Printi ng/Faxing/eTransmitting on: 0 11/14/2024 12:20 AM CDT
--- OUTSIDE RECORDS SUMMARY | 2024-11-14 00:21 | XMS_ITS | Clinical Summary ---
Author Organization [facility] Address [address] [address] Care Team Providers Care Plant Controls Specialist Name Role Phone Karl Robles Primary Care Provider Anibal ilable Allergies Active Allergy Reactions Criticality Noted [...] on file Legal Sex Female 7:46 AM ADMISSIONS DIRECTOR Gender Identity Not on file Sexual Orientation [...] 03/26/2023 10:04 AM CDT Plan of Treatment Health Maintenance Due Date Last Done Comments Breast Cancer Screening-Mammogram 1975 Cervical Cancer Screening 1975 Colon Cancer Screening-Colonoscopy 1975 Depression Screening 1975 Hepatitis C Screening 1975 DTaP/Tdap/Td Vaccine (1 - Tdap) 1985 Hepatitis B Screening 1992 Regular Well Visit/Exam 18-64 1992 Influenza Vaccine (#1) 2024 Zoster Vaccine (1 of 2) 2024 Pneumococcal vaccine <65 Aged Out No longer eligible based on patient's age to complete [place] [address] [place] [address] MEDICARE IDPA Care Teams Plant Controls Specialist Relationship Specialty Start Date End Date Karl Robles PCP - General 10/20/23
--- OUTSIDE RECORDS SUMMARY | 2024-11-14 00:21 | XMS_ITS ---
Author Organization [facility] Address [address] [place] [address] Care Team Providers Care Sort Worker Name Role Phone Dr. Pj Carroll Primary Care Provider Dr. Robin Bales [facility] [phone] REASON FOR VISIT (Apt 06/29) Botox Inquiry Encounters Encounter Location Date Provider Diagnosis [address] [place] [address] 06/28/2024 Robin Montana Plan Of Treatment Next Appt Details Provider Name:Aimee betts, 12/28/2024 07:30:00 AM[facility] [address] [facility] [address], [address], Progress Notes * Giulia ORTIZOB:1975 (48 yo F)Acc No.[id number]:06/28/2024 Patient: Anuja CLARK :1975 A ge:48 Y S ex:Female Address:[place] [address] * true * Date: Generated for Printi ng/Faxing/eTransmitting on: 0 11/14/2024 12:20 AM CDT
--- OUTSIDE RECORDS SUMMARY | 2024-11-14 00:21 | XMS_ITS | Clinical Summary ---
Author Organization [facility] Address [address] [place] [id number] Care Team Providers Care Electrical Plumbing Supervisor Name Role Phone Roberto Carroll MD Primary Care Provider + [phone] Encounters Date Type Department Care Team Description 09/14/2024 10:35 AM VICE PRESIDENT OF BRAND MANAGEMENT - 09/14/2024 11:59 PM VICE PRESIDENT OF BRAND MANAGEMENT Hospital Encounter [facility] [address] [facility] [place], [place] [id number] Karl Galvan PA Discharge Disposition: Home or Self Care (Routine Discharge) 09/14/2024 Travel from Last 3 Months Social History Tobacco Use Types Packs/Day Years Used Date Smoking Tobacco: Never Assessed Comments Unknown Sex and Gender Information Value Date Recorded Sex Assigned at Female 09/14/2024 10:36 AM VICE PRESIDENT OF BRAND MANAGEMENT Legal Sex Female 7:49 AM CDT Gender Identity Not on file Sexual Orientation Not on file Last Filed Vital Signs Vital Sign Reading Time Taken Comments Blood Pressure 118/80 09/16/2015 2:13 PM VICE PRESIDENT OF BRAND MANAGEMENT Pulse 88 09/16/2015 2:13 PM VICE PRESIDENT OF BRAND MANAGEMENT Temperature - - Respiratory Rate - - Oxygen Saturation - - Inhaled Oxygen Concentration - - Weight 98.9 kg (218 lb) 09/16/2015 2:13 PM VICE PRESIDENT OF BRAND MANAGEMENT Height 165.1 cm (5' 5 ) 04/22/2015 2:35 PM CDT Body Mass Index 36.28 04/22/2015 2:35 PM CDT Plan of Treatment Upcoming Encounters Date Type Department Care Team (Late st Contact Info) Description 01/11/2025 9:20 AM CDT Office Visit [facility] - [address], [address] [place] [address] Joesph Lewis MD [address] [place] [address] Health Maintenance Due Date Last Done Comments Colorectal Cancer Screening Colonoscopy (10 Years) 1974 Kidney Health Evaluation 1974 Annual Physical 1977 Pneumococcal Vaccine: Pediatrics (0 to 5 Years) and At-Risk Patients (6 to 64 Years) (1 of 2 - PCV) 1980 Diabetes: Retinopathy Eye Exam 1992 Hepatitis C 1992 DTaP, Tdap and Td Vaccines (1 - Tdap) 1993 Hepatitis B Vaccines (1 of 3 - 19+ 3-dose series) 1993 Cervical Cancer Screening Pap with HPV Testing (Age 30 to 64) Every 5 Years 2004 Mammogram Screening 2014 Cervical Cancer Screening Pap Smear (Age 30 to 64) Every 3 Years 02/16/2016 02/15/2013 Cervical Cancer Screening with HPV 02/16/2016 Hemoglobin A1C 07/29/2021 01/27/2021, 09/23, 04/17/2015, Additional history exists Lipid Panel 01/27/2022 01/27/2021, 10/02/2019 COVID-19 Vaccine ( - 2023- season) 2024 05/01/2021, 04/09/2021 Influenza Adult (#1) 2024 06/01/2023, 06/12/2021, 06/16/2018, Additional history exists PHQ-2 (Physician [place]) 08/23/2024 Zoster Vaccines (1 of 2) 2024 Meningococcal B Vaccine Aged Out No l onger eligible based on patient's age to complete this topic Meningococcal Vaccine Aged Out No delmy steven eligible based on patient's age to complete this topic RSV Immunizations Under 20 Months Aged Out No longer eligible based on patient's age to complete this topic Procedures Procedure Name Priority Date/Time Associated Diagnosis Comments XR ABD KUB Routine 09/14/2024 10:57 AM VICE PRESIDENT OF BRAND MANAGEMENT Type 2 diabetes mellitus with hyperglycemia ([facility]/H[facility]) LIPID PANEL Routine 01/27/2021 10:18 AM CDT HEMOGLOBIN, GLYCOSYLATED Routine 01/27/2021 10:18 AM CDT THINPREP IMAGING PAP REFLEX HPV MRNA E6/E7 Routine 02/15/2013 4:58 PM CDT from Last 3 Months or Most Recently Relevant to Health Maintenance Results * XR ABD KUB (09/14/2024 10:57 AM VICE PRESIDENT OF BRAND MANAGEMENT) Anatomical Region Laterality Modality Abdomen Computed Tomogra phy 09/14/2024 11:4 5 AM VICE PRESIDENT OF BRAND MANAGEMENT Impressions 09/14/2024 11:46 AM VICE PRESIDENT OF BRAND MANAGEMENT IMPRESSION: No acute findings Ordered By: KARL GALVAN Interpreted By: Shaan Marcelino MD, 09/14/2024 11:45 AM Narrative 09/14/2024 11:46 AM VICE PRESIDENT OF BRAND MANAGEMENT [address] [place], [place] [address] Two VIEW(s) OF THE ABDOMEN History: Abdomen pain Comparison:None 2 views of the abdomen demonstrate a normal overall bowel gas pattern. Quantity of stool throughout the colon is within normal limits. A moderate amount of air is noted throughout the colon. No pathologic intra-abdominal calcifications are seen. The bony elements are intact Procedure Note Shaan Marcelino MD - 09/14/[address] Rojas [place] [address] Two VIEW(s) OF THE ABDOMEN History: Abdomen pain Comparison:None 2 views of the abdomen demonstrate a normal overall bowel gas pattern.Quantity of stool throughout the colon is within normal limits. A moderateamount of air is noted throughout the colon. No pathologic intra-abdominalcalcifications are seen. The bony elements are intact IMPRESSION: No acute findings Ordered By: KARL GALVAN Interpreted By: Shaan Marcelino MD, 09/14/2024 11:45 AM Karl Galvan PA GENERAL IMAGING Final Resu lt * HEMOGLOBIN, GLYCOSYLATED (01/27/2021 10:18 AM CDT) HGB A1C 5.3 4.2 - 6.3 % [facility] Comment: Note: Hemoglobinopathies such as HbF, HbS, etc. may give incorrect results with this test. ESTIMATED AVG GLUCOSE 90 mg/dL [facility] Comment: (This value is a calculated estimate of the mean blood glucose over the last 60 days based on the patient's HgbA1c value. 01/27/2021 10:1 8 AM CDT 01/27/2021 10:18 AM CDT Maria E Betancur MD LABORATORY Final Result [address] [address] * LIPID PANEL (01/27/2021 10:18 AM CDT) [facility] CHOLESTEROL 141 0 - 200 mg/dL [facility] TRIGLYCERIDES 139 0 - 150 mg/dL [facility] HDL 54 40 - 60 mg/dL [facility] LDL (CALCULATED) 59 10 - 130 mg/dL [facility] CARDIO RISK 3 [facility] Comment: CHOLESTEROL LEVELS AND CHD RISK INTERPRETATIONS CHOLESTEROL LDL DESIRABLE < 200 mg/dL < 130 mg/dL [place] 200-239 mg/dL 130-159 mg/dL HIGH > 240 mg/dL > 160 mg/dL CHD RISK FACTORS CHOL/HDL RATIO MALE FEMALE BELOW AVG. < 4.2 < 3.9 AVERAGE 4.2-7.3 3.9-5.7 ABOVE AVG.(MODERATE) 7.4-11.5 5.8-9.0 ABOVE AVG.(HIGH) > 11.5 > 9.0 LDL AND CHD RATIO ARE INVALID IF TRIGLYCERIDES >450 01/27/2021 10:1 8 AM CDT 01/27/2021 10:18 AM CDT us Maria E Betancur MD LABORATORY Final [facility] [address] [address] * THINPREP IMAGING PAP REFLEX HPV MRNA E6/E7 (02/15/2013 4:58 PM CDT) REFLEX ADDED no [facility] P TO EPIC CONVERSION 02/15/2013 4:58 PM CDT 02/15/2013 4:58 PM CDT Narrative [facility] TO EPIC CONVERSION - 02/15/2013 4:58 PM CDT This lab was migrated from [facility] and may be missing annotations or result text, please check the Media tab for the most complete results. us Nely Solano MD PATHOLOGY/CYTOLOGY ORDER MISA Final Result [facility] TO EPIC CONVERSION from Last 3 Months or Most Recently Relevant to Health Maintenance Insurance MEDICARE Care Teams Electrical Plumbing Supervisor Relationship Specialty Start Date End Date Roberto Carroll MD [address] [place] [address] PCP - General PEDIATRICS 05/25/22
--- OUTSIDE RECORDS SUMMARY | 2024-11-14 00:21 | XMS_ITS | Clinical Summary ---
Author Organization [facility] Address [address] [place] [address] Care Team Providers Care Transfusion Nurse Name Role Phone Pj Carroll MD Primary Care Provider [phone] Source Comments [facility],non-owned Affiliates and Associated Physician Practices is amultiple site organization consisting of ambulatory clinics and hospital sitesin [place], [place], [place] and [place]. This disclosure is being madepursuant to the Care Everywhere program and may not contain all information available regarding this patient. Last updated 18.[facility] Allergies Active Allergy Reactions Criticality Noted Date Comments Propoxyphene N-Apap Rash Medium 03/04/2024 Penicillins Rash Medium 03/04/2024 Medications * Be aware that medications may not be up to date on this document. Alwaysverify current medications with the patient. Medication Sig Dispensed Refills Start Date End Date Status phenazopyridine (Pyridium) 200 MG tablet Take 1 (one) tablet by mouth 3 times daily as needed 30 tablet 03/04/2024 Active ketorolac (Toradol) 10 MG tablet Take 1 (one) tablet by mouth every 6 hours as needed for Pain 15 tablet 03/11/2024 Active meclizine (Antivert) 25 MG tablet Take 1 (one) tablet by mouth 3 times daily as needed for Dizziness 30 tablet 04/26/2024 Active ketorolac (Toradol) 10 MG tablet Take 1 (one) tablet by mouth every 6 hours as needed for Pain 12 tablet 04/26/2024 Active fluticasone propionate (Flonase) 50 MCG/ACT nasal spray [place] 2 (two) sprays into each nostril once daily as needed (congestion) 1 Each 04/26/2024 Active metoclopramide (Reglan) 10 MG tablet Take 1 (one) tablet by mouth 3 times daily before meals 12 tablet 04/26/2024 Active Social History Tobacco Use Types Packs/Day Years Used Date Smoking Tobacco: Never Assessed Sex and Gender Information Value Date Recorded Sex Assigned at Not on file Gender Identity Not on file Sexual Orientation Not on file Last Filed Vital Signs Vital Sign Reading Time Taken Comments Blood Pressure 142/79 04/26/2024 8:05 PM CDT Pulse 116 04/26/2024 5:20 PM CDT Temperature 37.8 C (100 F) 04/26/2024 5:20 PM CDT Respiratory Rate 20 04/26/2024 5:20 PM CDT Oxygen Saturation 97% 04/26/2024 9:50 PM CDT Inhaled Oxygen Concentration - - Weight 86.2 kg (190 lb) 04/26/2024 5:20 PM CDT Height 165.1 cm (5' 5 ) 04/26/2024 5:20 PM CDT Body Mass Index 31.62 04/26/2024 5:20 PM CDT Plan of Treatment Health Maintenance Due Date Last Done Comments COLOGUARD (AGES 45-75) - COL ON CA SCREENING 1974 COLON MONITORING 1974 COLONOSCOPY - COLON CA SCREENING 1974 CT COLONOGRAPHY - COLON CA SCREENING 1974 Colorectal Cancer Screening 1974 FIT - COLON CA SCREENING 1974 FLEX SIG - COLON CA SCREENING 1974 LIPID TESTING 1974 MAMMOGRAM 1974 MEDICARE AWV 12 MONTHS 1974 PAP SMEAR 1974 HIV SCREENING 1989 HEPATITIS C SCREENING 10/13/1992 DTAP/TDAP/TD VACCINES (1 - Tdap) 1993 HEPATITIS B VACCINE (1 of 3 - 19+ 3-dose series) 1993 COVID-19 VACCINE (3 - 2023-2 5 season) 2024 05/01/2021, 04/09/2021 INFLUENZA VACCINE (#1) 2024 , 06/12/2021, 06/16/2018 DEPRESSION SCREENING 08/23/2024 PNEUMOCOCCAL VACCINE 50+ (1 of 1 - PCV) 2024 ZOSTER VACCINE (1 of 2) 2024 HIB VACCINE Aged Out No longer eligi ble based on patient's age to complete this topic HPV VACCINE Aged Out No longer eligi ble based on patient's age to complete this topic MENINGOCOCCAL (Group B) VACCINE SHARED DECISION-MAKING Aged Out No longer eligible based on patient's age to complete this topic MENINGOCOCCAL GROUPS A/C/Y/W VACCINE Aged Out No longer eligible b ased on patient's age to complete this topic PNEUMOCOCCAL VACCINE Aged Out No long er eligible based on patient's age to complete this topic Care Teams Transfusion Nurse Relationship Specialty Start Date End Date Pj Carroll MD [address] [place] [address] PCP - General Family Medicine 03/04/24
--- OUTSIDE RECORDS SUMMARY | 2024-11-14 00:21 | XMS_ITS ---
Author Organization [facility] Address [address] [place] [address] Care Team Providers Care Prosthodontist/Owner Name Role Phone Dr. Pj Carroll Primary Care Provider Dr. Robin Bales Unavailable [phone] Aimee Mendez Unavailable [phone] Allergies Allergen (clinical drug ingredient) Drug/Non Drug Allergy documented on EMR Reaction Allergy Type Onset Date Status DARVOCET (uncoded) rash Allergy A ctive penicillin V Penicillin V Potassium rash Drug Allergy Active REASON FOR VISIT Headache follow-up, Fibromyalgia, Cervicalgia Medications Medication SIG (Take, Route, Frequency, Duration) Notes Start Date End Date Status Emgality 120 MG/ML 1 injection as maintenance dose Subcutaneous once every 4 weeks 04/06/2024 Active Venlafaxine HCl ER 150 MG 1 cap(s) orally once a day Active traZODone HCl 50 MG as directed orally Active clonazePAM 0.5 MG 1 tab(s) orally 2 times daily Active Valium 5 MG 1 tab orally 20 minutes prior to MRI for 1 days 11/11/2023 Not-Taking Zavzpret 10 MG 1 SPRAY INTRANASALLY ONCE DAILY, NO REPEAT DOSE *Please review and pick correct strength-formulat ion from Medispan options. If intended option is not shown, discontinue and re-order from Quick Search* 12/15/2023 Active Rizatriptan Benzoate 10 MG 1 tab orally once, can repeat x1 after 2-4 hours for 30 days 11/11/2023 Not-Taking Social History Tobacco Use: Social History Observation Description Date Details (start date - stop date) Never Smoker NA - NA Tobacco Control (Standard) Question Answer Notes Tobacco use: Nonsmoker Vital Signs Blood pressure systolic 139 mm Hg 06/29/20 24 Blood pressure diastolic 85 mm Hg 024 Respiratory Rate 17 /min 06/29/2024 Height 65 in 06/29/2024 Weight 194.8 lbs 06/29/2024 BMI 32.41 kg/m2 06/29/2024 Oximetry 98 % 06/29/2024 Encounters Encounter Location Date Provider Diagnosis [facility] [address] [place] [address] 06/29/2024 Aimee Mendez Migraine without aura, not intractable, without status migrainosus G43.009 ; Fibromyalgia M79.7 and Cervicalgia M54.2 Assessments Encounter Date Diagnosis (ICD Code) Assessment Notes Treatment Notes Treatment Clinical Notes Section Notes 06/29/2024 Migraine without aura, not intractable, without status migrainosus (ICD-10 - G43.009) -Abortive treatment plan: Continue Zavzpret. Continue OTC analgesics as needed. -Preventive treatment plan: Continue Emgality.-Educat ed the patient on migraine lifestyle recommendations. I [...] - M79.7) Continue venlafaxine at present dose. 06/29/2024 Cervicalgia (ICD-10 - M54.2) Continue venlafaxine at present dose. Plan Of Treatment Medication Medication Name Sig Start Date Stop Date Notes Emgality 120 MG/ML 1 injection as maintenance dose Subcutaneous once every 4 weeks 04/06/2024 Venlafaxine HCl ER 150 MG 1 cap(s) orally once a day Zavzpret 10 MG 1 SPRAY INTRANASALLY ONCE DAILY, NO REPEAT DOSE 12/15/2023 *Please review and pick correct strength-formulation from Medispan options. If intended option is not shown, discontinue and re-order from Quick Search* Treatment Notes Assessment Notes Migraine without aura, not i ntractable, without status migrainosus -Abortive treatment plan: Continue Zavzpret. Continue OTC [...] daily as supplements; keep scheduled follow-up appointments Fibromyalgia Continue venlafaxine at present dose. Cervicalgia Continue venlafaxine at present dose. Next Appt Details Follow Up: , Reason: Evaluat ion and Management Provider Name:Aimee betts, 12/28/2024 07:30:00 AM, [address], [place], [address], Progress Notes * Giulia ORTIZOB:1975 (48 yo F)Acc No.[id number]:06/29/2024 Progress Notes Patient: Anuja CLARK Provider: Nilesh Mendez APRN :1975 A ge:48 Y S ex:Female Date:06/29/2024 Address:[address] [place], [place] [id number] Pcp:Dr. Pj Carroll Subjective: * Chief Complaints: * H eadache follow-upFibromyalgiaCervicalgia * HPI: * Introduction: I had the pleasure of seeing Lucero Ortiz, who presented for follow-up for migraine, fibromyalgia, and cervicalgia. * Initial History: INITIAL VISIT HISTORY: She is a 48 year old woman with a h/o obesity, prior h/o diabetes (normalized after weight loss), chronic tinnitus, and migraine. Headache History: -Headache Onset: Teenage, became more prbblematic in 30s -Headache Description: Prodrome: None. Aura: None. Headache phase: Usually has wake up migraines. Usually located central frontal, like between her eyes, pressure and pulsating pain, can be severe/intense, can restrict function, associated with mild photophobia, associated with dizziness and blurry vision, can last for hours to days. -Headache Triggers: None. -Headache Frequency: The patient has a chronic daily headache pattern. This is a chronic problem for at least the last year. She has at least a 4/10 headache pain everyday 30 days/month with escalation to 7-10/10 pain on at least 16 days/month. Other symptoms: She has developed widespread paresthesias and pain. She started with this in 07/2023. She had pain in her right forearm and numbness/tingling in her forearm and hand. Then developed similar symptoms in the left upper extremity. The developed similar symptoms in her right leg. Symptoms are persistent/constant. There is no muscle weakness or loss of dexterity. There is no gait difficulty. There is no sphincter disturbance. She has not had this investigated. LAST VISIT HISTORY: Last visit was on 0 01/20/2024. She reports that Aimovig 70 mg has been much less effective in the last month compared to the first two months of treatment. Furthermore, she endorses constipation with the Aimovig. She has a history of chronic constipation, but clearly worse since starting Aimovig, and she had to start Miralax daily one week ago per PCP recommendation. She reports that Zavzpret NS was only slightly more effective than OTC Aleve, it did not help enough. She is currently having daily headaches with 2-3 migraine days per week. She is taking Aleve 3-4 times per week. She has considered Botox in the past but declined due to a high copay. * Previous Impression & Plan: Notes Previous Diagnoses: 1. Migraine without aura, not intractable, without status migrainosus - G43.009 (Primary) 2. Fibromyalgia - M79.7 3. Cervicalgia - M54.2 Previous Recommendations: 1. Abortive: Samples of Nurtec given. Preventive: D/C Aimovig. Sample of Emgality loading dose 240 mg SQ administered today. Prescribe 120 mg SQ q4 weeks. 2. Continue Venlafaxine at present dose. * Interval History: Notes Pharmacologic Treatment: Current abortive treatment: OTC analgesics (Aleve or Excedrin), Zavzpret NS (effective) Previous abortive treatment: S umatriptan (ineffective), Ubrelvy (ineffective), Nurtec (ineffective) Current preventive treatment: E mgality 120 mg q4 weeks, V enlafaxine (on for nerve pain) Previous preventive treatment: Aimovig 7 0 mg (side effects- constipation), A mitriptyline (ineffective, took for > 2 months, years ago), Gabapentin (side effects) Medication overuse: Present - taking NSAIDs about 4 days/week. Other modalities: None Headache Frequency: Initial/baseline headache/migraine days/month: 30 Last visit headache/migraine days/month: 30/- Current headache/migraine days/month: 30 (less intense)/3-4 Headache Scales: HIT-6: Current score: 50 . Prior score: 61 Interval History: Last visit was on 0 04/06/2024. She reports that she has been doing well since her last visit. Her migraines have improved in both frequency and intensity since switching from Aimovig to Emgality. Zavzpret NS has been the most effective abortive treatment of everything she has tried and she would like to continue using it. She denies any side effects with Emgality or velanfaxine. She does not have any new concerns at this time. * ROS: A LLERGY: itchy eyes Y es. s inus congestion Y es. C ONSTITUTIONAL: night sweats Y es. w eight gain Y es. l oss of appetite Y es. f ever N o. w eakness Y es. f atigue Y es. ? E NT: ringing in ears Y es. s inus pain Y es. ? R ESPIRATORY: Positive for P atient denies shortness of breath or wheezing. O PHTHALMOLOGY: itching Y es. b lurring of vision Y es. ? E NDOCRINOLOGY: fatigue Y es. s leep disturbance Y es. ? C ARDIOLOGY: dizziness Y es. c hest pain N o. p alpitations?No. l eg edema N o. s hortness of breath N o. G ASTROENTEROLOGY: hemorrhoids Y es. a bdominal pain Y es. c onstipation Y es. U ROLOGY: frequent urination Y es. D ERMATOLOGY: Positive for P atient denies rash or hives. ? N EUROLOGY: headache Y es. t ingling numbness Y es. i nsomnia Y es. d izziness Y es. H EMATOLOGY/LYMPH: Positive for P atient denies history of excessive bruising or bleeding diasthesis. M USCULOSKELETAL: leg cramps Y es. P SYCHOLOGY: depression Y es. a nxiety Y es. * Medical History: * Surgical History: N o Surgical History documented. * Hospitalization/Major Diagno stic Procedure: N o Hospitalization History. * Family History: F ather: Yes. M other: Yes. P aternal Grand Father: No. P aternal Grand Mother: No. M aternal Grand Father: No. M aternal Grand Mother: No. P aternal aunt: Yes. M aternal uncle: Yes. M aternal aunt: Yes. S iblings: Yes. C hildren: Yes. Brother has migraine. * Social History: M arital Status What is your marital status? d ivorced A lcohol Screening Do you ever drink alcoholic beverages? N o C affeine: Yes. E xercise What kind(s) of exercise do you perform regularly? w alking How often do you perform this exercise? d aily O ccupation Are you currenly employed? Y es Have you had any job with high exposure to fumes, chemicals, dust or other noxious substances? N o Are you currently a student? N o T obacco Control (Standard) Tobacco use: N onsmoker * Medications: T akingtraZODone HCl 50 MG Tablet as directed orally clonazePAM 0.5 MG Tablet 1 tab(s) orally 2 times daily Venlafaxine HCl ER 150 MG Capsule Extended Release 24 Hour 1 cap(s) orally once a day Emgality 120 MG/ML Solution Auto-injector 1 injection as maintenance dose Subcutaneous once every 4 weeks Taking traZODone HCl 50 MG Tablet as directed orally Taking clonazePAM 0.5 MG Tablet 1 tab(s) orally 2 times daily Taking Venlafaxine HCl ER 150 MG Capsule Extended Release 24 Hour 1 cap(s) orally once a day Taking Emgality 120 MG/ML Solution Auto-injector 1 injection as maintenance dose Subcutaneous once every 4 weeks Not-Taking/PRNZavzpret 10 MG SPRAY 1 SPRAY INTRANASALLY ONCE DAILY, NO REPEAT DOSE , Notes to Pharmacist: *Please review and pick correct strength-formulation from Peerzspan options. If intended option is not shown, discontinue and re-order from Quick Search*Rizatriptan Benzoate 10 MG Tablet 1 tab orally once, can repeat x1 after 2-4 hours Valium 5 MG Tablet 1 tab orally 20 minutes prior to MRI Medication List reviewed and reconciled with the patientNot-Taking/PRN Zavzpret 10 MG SPRAY 1 SPRAY INTRANASALLY ONCE DAILY, NO REPEAT DOSE , Notes to Pharmacist: *Please review and pick correct strength-formulation from Peerzspan options. If intended option is not shown, discontinue and re-order from Quick Search*Not-Taking/PRN Rizatriptan Benzoate 10 MG Tablet 1 tab orally once, can repeat x1 after 2-4 hours Not-Taking/PRN Valium 5 MG Tablet 1 tab orally 20 minutes prior to MRI Medication List reviewed and reconciled with the patient * Allergies: P enicillin V Potassium: rashDARVOCET: rashno[Allergies Verified] Objective: * Vitals: B P:139/85mm Hg, HR:86/min, RR:17/min, Pulse Oximetry:98%, Ht: 65 in, Wt: 194.8 lbs, BMI:32.41Index. * Examination: G eneral examination: General appearance: P leasant, well-developed, no distress.? HEENT: N o papilledema. Neurologic exam: A lert and oriented x 4. Fluent speech. CN II-XII intact. Motor 5/5 strength in all extremities. Reflexes 2+/2 and symmetric in all extremities. Bilateral flexor plantar responses. Sensory exam intact to light touch and pin sensation in all extremities. Cerebellar testing no ataxia or tremors. Gait normal. Extremities: S he has > 11/18 fibromyalgia tender points. Assessment: * Assessment: 1. M igraine without aura, not intractable, without status migrainosus - G43.009 (Primary) 2 . F ibromyalgia - M79.7 3 . C ervicalgia - M54.2 ? Plan: * Treatment: 2. F ibromyalgia Continue Venlafaxine HCl ER Capsule Extended Release 24 Hour, 150 MG, 1 cap(s), orally, once a day.? Notes:Continue venlafaxine at present dose. 3. C ervicalgia Notes:Continue venlafaxine at present dose. * Procedure Codes: 9 6160 PT-FOCUSED HLTH RISK [id number] DOC MEDS VERIFIED W/PT OR [id number] Complex e/m visit add on * Follow Up: R kishan: Evaluation and Management * Billing Information: * Visit Code: 17511 Office Visit, Est Pt., Level 4. Modifiers: 25 * Procedure Codes: 96858 PT-FOCUSED HLTH RISK ASSMT. G8427 DOC MEDS VERIFIED W/PT OR RE. G2211 Complex e/m visit add on. * NESS COMPUTERS TEACHER Sign off status: Completed true * Provider: Nilesh Mendez APRN Date: 08/29/2023 Generated for Laureano pennington/Jessica/Marioitting on: 0 11/14/2024 12:20 AM CDT History and Physical Notes * HPI (History of Present Illness) Category Sub-Category Detail Notes Category Not es *Introduction I had the pleasure of seeing Anuja Ortiz, who presented for follow-up for migraine, fibromyalgia, and cervicalgia *Initial History INITIAL VISIT HISTORY: She is a 48 year old woman with a h/o obesity, prior h/o diabetes (normalized after weight loss), chronic tinnitus, and migraine. Headache History: -Headache Onset: Teenage, became more prbblematic in 30s -Headache Description: Prodrome: None. Aura: None. Headache phase: Usually has wake up migraines. Usually located central frontal, like between her eyes, pressure and pulsating pain, can be severe/intense, can restrict function, associated with mild photophobia, associated with dizziness and blurry vision, can last for hours to days. -Headache Triggers: None. -Headache Frequency: The patient has a chronic daily headache pattern. This is a chronic problem for at least the last year. She has at least a 4/10 headache pain everyday 30 days/month with escalation to 7-10/10 pain on at least 16 days/month. Other symptoms: She has developed widespread paresthesias and pain. She started with this in 07/2023. She had pain in her right forearm and numbness/tingling in her forearm and hand. Then developed similar symptoms in the left upper extremity. The developed similar symptoms in her right leg. Symptoms are persistent/constan t. There is no muscle weakness or loss of dexterity. There is no gait difficulty. There is no sphincter disturbance. She has not had this investigated. LAST VISIT HISTORY: Last visit was on 01/20/2024. She reports that Aimovig 70 mg has been much less effective in the last month compared to the first two months of treatment. Furthermore, she endorses constipation with the Aimovig. She has a history of chronic constipation, but clearly worse since starting Aimovig, and she had to start Miralax daily one week ago per PCP recommendation. She reports that Zavzpret NS was only slightly more effective than OTC Aleve, it did not help enough. She is currently having daily headaches with 2-3 migraine days per week. She is taking Aleve 3-4 times per week. She has considered Botox in the past but declined due to a high copay *Previous Impression & Plan Notes Previous Diagnoses:1. Migrai ne without aura, not intractable, without status migrainosus - G43.009 (Primary)2. Fibromyalgia - M79.73. Cervicalgia - M54.2Previous Recommendations:1. Abortive: Samples of Nurtec given. Preventive: D/C Aimovig. Sample of Emgality loading dose 240 mg SQ administered today. Prescribe 120 mg SQ q4 weeks.2. Continue Venlafaxine at present dose *Interval History Notes Pharmacologic Treatment:Curr ent abortive treatment: OTC analgesics (Aleve or Excedrin), Zavzpret NS (effective)Previous abortive treatment: Sumatriptan (ineffective), Ubrelvy (ineffective), Nurtec (ineffective)Current preventive treatment: Emgality 120 mg q4 weeks, Venlafaxine (on for nerve pain)Previous preventive treatment: Aimovig 70 mg (side effects- constipation), Amitriptyline (ineffective, took for > 2 months, years ago), Gabapentin (side effects)Medication overuse: Present - taking NSAIDs about 4 days/week.Other modalities: NoneHeadache Frequency:Initial/baseline headache/migraine days/month: 30Last visit headache/migraine days/month: 30/8-12Current headache/migraine days/month: 30 (less intense)/3-4Headache Scales:HIT-6: Current score: 50 . Prior score: 61Interval History:Last visit was on 04/06/2024. She reports that she has been doing well since her last visit. Her migraines have improved in both frequency and intensity since switching from Aimovig to Emgality. Zavzpret NS has been the most effective abortive treatment of everything she has tried and she would like to continue using it. She denies any side effects with Emgality or velanfaxine. She does not have any new concerns at this time Examination Category Sub-Category Detail Notes Category Not es General examination HEENT: No papilledema Extremities: She has > 11/18 fibr omyalgia tender points General appearance: Pleasant, well-devel oped, no distress Neurologic exam: Alert and oriented x 4. Fluent speech. CN II-XII intact. Motor 5/5 strength in all extremities. Reflexes 2+/2 and symmetric in all extremities. Bilateral flexor plantar responses. Sensory exam intact to light touch and pin sensation in all extremities. Cerebellar testing no ataxia or tremors. Gait normal
[2024-11-29 10:49] VITALS: BMI 32.1
--- OUTSIDE RECORDS SUMMARY | 2024-12-08 00:03 | XMS_ITS ---
Author Organization [facility] Address [address] [place] [address] Care Team Providers Care Systems Analyst Engineer Name Role Phone Dr. Pj Carroll Primary Care Provider Dr. Robin Bales Unavailable [phone] Aimee Mendez Unavailable [phone] REASON FOR VISIT Refills Medications Medication SIG [...] Active Encounters Encounter Location Date Provider Diagnosis [facility] [address] [place] [address] 09/05/2024 Aimee Mendez Migraine without aura, not [...] Details Provider Name:Shyam Martinez/08/2025 07:30:00 AM, [address], [place], [address], Progress Notes * Elmira ORTIZNatividadOB:1975 (48 yo F)Acc No.[id number]:09/05/2024 Patient: Anuja CLARK :1975 A ge:48 Y S ex:Female Address:[address] [place] [address] [place] [address] * Refills Refill Emgality Solution Auto-injector, 120 MG/ML, Subcutaneous, 1, 1 injection as maintenance dose, once every 4 weeks, 28 days, Refills=5 Start Emgality Solution Auto-injector, 120 MG/ML, Subcutaneous, 2, 2 injections as LOADING DOSE for the first month, once, 28 days, Refills=0 * true * Date: Generated for Laureano pennington/Jessica/Marioitting on: 0 12/08/2024 12:02 AM CDT
--- OUTSIDE RECORDS SUMMARY | 2024-12-08 00:03 | XMS_ITS | Clinical Summary ---
Author Organization [facility] Address [address] [place] [address] Care Team Providers Care Editorial Intern Name Role Phone Pj Carroll MD Primary Care Provider [phone] Source Comments [facility],non-owned Affiliates and Associated Physician Practices is amultiple site organization consisting of ambulatory clinics and hospital sitesin [place], [place], [place] and [place]. This disclosure is being madepursuant to the Care Everywhere program and may not contain all information available regarding this patient. Last updated 18.[facility] Allergies Active Allergy Reactions Criticality Noted Date Comments Propoxyphene N-Apap Rash Medium 03/04/2024 Penicillins Rash Medium 03/04/2024 Medications * Be aware that medications may not be up to date on this document. Alwaysverify current medications with the patient. phenazopyridine (Pyridium) 200 MG tablet Take 1 (one) tablet by mouth 3 times daily as needed 30 tablet 4 Active ketorolac (Toradol) 10 MG tablet Take 1 (one) tablet by mouth every 6 hours as needed for Pain 15 tablet 4 Active meclizine (Antivert) 25 MG tablet Take 1 (one) tablet by mouth 3 times daily as needed for Dizziness 30 tablet 4 Active ketorolac (Toradol) 10 MG tablet Take 1 (one) tablet by mouth every 6 hours as needed for Pain 12 tablet 4 Active fluticasone propionate (Flonase) 50 MCG/ACT nasal spray Girdler 2 (two) sprays into each nostril once daily as needed (congestion) 1 Each 4 Active metoclopramide (Reglan) 10 MG tablet Take 1 (one) tablet by mouth 3 times daily before meals 12 tablet 4 Active Social History Tobacco Use Types Packs/Day Years Used Date Smoking Tobacco: Never Assessed Comments Unknown Sex and Gender Information Value Date Recorded Sex Assigned at Not on file 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
--- OUTSIDE RECORDS SUMMARY | 2024-12-08 00:03 | XMS_ITS | Patient Health Record ---
Author Organization [facility] Address [address] [place] [address] Care Team Providers Care Petrophysicist Name Role Phone Dr. Pj Carroll Primary Care Provider Dr. Robin Bales Unavailable [phone] [facility], Provider Unavailable Unavailab Aimee Culver Unavailable [phone] Allergies Allergen (clinical drug ingredient) Drug/Non Drug Allergy documented on EMR Reaction Allergy Type Onset Date Status DARVOCET (uncoded) rash Allergy A ctive penicillin V Penicillin V Potassium rash Drug Allergy Active Results Component Value Reference Range Notes -Rheumatoid Arthritis Factor Reviewed date:12/18/2023 09:00:03 AM Interpretation:Normal Performing Lab:[facility] [address] [id number], Phone - [phone], [facility] Notes/Report: Rheumatoid Factor (RF) <10.0 <14.0 IU/mL -Aldolase Reviewed date:12/20/2023 02:19:40 PM Interpretation:Normal Performing Lab:[facility] [address] [id number], Phone - [phone], Director - [facility] Notes/Report: Aldolase 4.7 3.3-10.3 U/L -Creatine Kinase,Total,Serum Reviewed date:12/18/2023 08:59:49 AM Interpretation:Normal Performing Lab:[facility] [address] [id number], Phone - [phone], [facility] Notes/Report: Creatine Kinase,Total 75 32-182 U/L ABN Option 3 Reviewed date:12/18/2023 08:59:41 AM Interpretation: Performing [facility], [address] [place] [id number], Phone - [phone], Director - Anastasia Notes/Report: ABN Option 3 One or more tests were removed at the request of the patient and may not be represented on this report. As a result, some or all of the tests originally requested may not have been performed or may be reported separately. Please contact your patient regarding any necessary follow-up. Reason For Referral No Information Medications Medication [...] review and pick correct strength-formulat ion from [email or web address] options. If intended option is not shown, [...] Problem Chronic migraine without aura, non-refractory (disorder) (158377978030696) Migraine without aura, not intractable, without status migrainosus (G43.009) Active confirmed Problem Migraine with aura (7731153) Migraine with aura, not intractable, without status migrainosus (G43.109) Active confirmed Problem Chronic migraine without aura, non-intractable (107448571793351) Chronic migraine without aura, not intractable, without status migrainosus (G43.709) Active confirmed Problem Drug induced headache (981660533554107) Drug-induced headache, not elsewhere classified, not intractable (G44.40) Active confirmed Problem Degeneration of cervical intervertebral disc (42809318) Other cervical disc degeneration, unspecified cervical region (M50.30) Active confirmed Problem Cervicalgia (01368066) Cervicalgia (M54.2) Active confirmed Problem Fibromyalgia (529113850) Fibromyalgia (M79.7) Active confirmed Problem Paresthesia (finding) (95245955) Paresthesia of skin (R20.2) Active confirmed Problem Chronic fatigue syndrome (disorder) (55215385) Chronic fatigue, unspecified (R53.82) Active confirmed Problem Muscle pain (26605223) Myalgia, unspecified site (M79.10) Active confirmed Vital Signs Respiratory Rate 17 /min 06/29/2024 Oximetry 98 % 06/29/2024 Blood pressure diastolic 85 mm Hg 06/29/2024 Height 65 in 06/29/2024 Blood pressure systolic 139 mm Hg 06/29/2024 Weight 194.8 lbs 06/29/2024 BMI 32.41 kg/m2 06/29/2024 Encounters Encounter Location Date Provider Diagnosis [address] [address] 02/05/2024 Provider [facility]Migration Migraine without aura, not intractable, without status migrainosus G43.009 and Fibromyalgia M79.7 [facility] [address] [place] [address] 12/15/2023 Robin Montana Chronic migraine without aura, not intractable, without status migrainosus G43.709 ; Paresthesia of skin R20.2 ; Myalgia, unspecified site M79.10 ; Cervicalgia M54.2 and Other cervical disc degeneration, unspecified cervical region M50.30 [facility] [address] [place] [address] 01/20/2024 Robin Montana Migraine without aura, not intractable, without status migrainosus G43.009 ; Fibromyalgia M79.7 and Cervicalgia M54.2 [facility] [address] [place] [address] 04/06/2024 Robin Montana Migraine without aura, not intractable, without status migrainosus G43.009 ; Fibromyalgia M79.7 and Cervicalgia M54.[address] [address] 06/29/2024 Aimee Mendez Migraine without aura, not intractable, without status migrainosus G43.009 ; Fibromyalgia M79.7 and Cervicalgia M54.2 [facility] [place] [address] [facility] [place] [address] 12/09/2023 Robin Nan [facility] [place] [address] [facility] [place] [address] 12/15/2023 Robin Montana Chronic migraine without aura, not intractable, without status migrainosus G43.709 [facility] [place] [address] [facility] [place] [address] 12/16/2023 Robin Nan [facility] [place] [address] [facility] [place] [address] 12/21/2023 Robin Nan [facility] [place] [address] [facility] [place] [address] 04/06/2024 Robin Nan [facility] [place] [address] [facility] [place] [address] 06/28/2024 Robin Montana [address] [place] [address] 09/05/2024 Aimee Mendez Migraine without aura, not [...] Provider Name:Aimee betts, 12/28/2024 07:30:00 AM, [address], [place], [address], Insurance Providers Payer Name Payer Address Payer Phone Subscriber Number Group Number Insured Name Patient Relationship to Insured Coverage Start Date Coverage End Date [employer] (Medicare) Attention Claims [address] [place] [address] [id number] Anuja Schwab Self - patient is the insured Medical (General) History Medical History History ICD Code Obesity Prior h/o diabetes meliitus - reports re solved after weight loss Depression Migraine Fibromyalgia Other specified diabetes mellitus withou t complications E13.9
--- OUTSIDE RECORDS SUMMARY | 2024-12-08 00:03 | XMS_ITS ---
Author Organization [facility] Address [address] [place] [address] Care Team Providers Care Dialysis Biomed Technician Name Role Phone Dr. Pj Carroll Primary Care Provider Dr. Robin Bales [facility] [phone] REASON FOR VISIT (Apt 06/29) Botox Inquiry Encounters Encounter Location Date Provider Diagnosis [place] [address] [place] [address] 06/28/2024 Robin Montana Plan Of Treatment Next Appt Details Provider Name:Aimee betts, 12/28/2024 07:30:00 AM[facility] [address] [facility], [address], [address], Progress Notes * Giulia ORTIZOB:1975 (48 yo F)Acc No.[id number]:06/28/2024 Patient: Anuja CLARK :1975 A ge:48 Y S ex:Female Address[place] [address] * true * Date: Generated for Printi ng/Faxing/eTransmitting on: 0 12/08/2024 12:03 AM CDT
--- OUTSIDE RECORDS SUMMARY | 2024-12-08 00:03 | XMS_ITS ---
Author Organization [facility] Address [address] [place] [address] Care Team Providers Care Art Gallery Director Name Role Phone Dr. Pj Carroll Primary Care Provider Dr. Robin Bales Unavailable [phone] Aimee Mendez Unavailable [phone] Allergies Allergen (clinical drug ingredient) Drug/Non Drug [...] 06/29/2024 Encounters Encounter Location Date Provider Diagnosis [facility] [address] [place] [address] 06/29/2024 Aimee Mendez Migraine without aura, not [...] Provider Name:Aimee betts, 12/28/2024 07:30:00 AM, [address], [address], [address], Progress Notes * Giulia ORTIZOB:1975 (48 yo F)Acc No.[id number]:06/29/2024 Progress Notes Patient: Anuja CLARK Provider: Nilesh Mendez APRN :1975 A ge:48 Y S ex:Female Date:06/29/2024 Address:[address] [place], [place] [id number] Pcp:Dr. Pj Carroll Subjective: * Chief Complaints: [...] *Please review and pick correct strength-formulation from [employer] options. If intended option is not shown, [...] *Please review and pick correct strength-formulation from [employer] options. If intended option is not shown, [...] Procedure Codes: 9 6160 PT-FOCUSED HLTH RISK [id number] DOC MEDS VERIFIED W/PT OR [id number] Complex e/m visit add on * Follow Up: R kishan: Evaluation and Management * Billing Information: * Visit Code: 10565 Office Visit, Est Pt., Level 4. Modifiers: 25 * Procedure Codes: 84085 PT-FOCUSED HLTH RISK ASSMT. G8427 DOC MEDS VERIFIED W/PT OR RE. G2211 Complex e/m visit add on. * ER Sign off status: Completed true * Provider: Nilesh Mendez APRN Date: 08/29/2023 Generated for Laureano pennington/Jessica/Marioitting on: 0 12/08/2024 12:03 AM CDT History and Physical Notes * [...]
--- OUTSIDE RECORDS SUMMARY | 2024-12-08 00:03 | XMS_ITS | Clinical Summary ---
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
--- OUTSIDE RECORDS SUMMARY | 2024-12-08 00:03 | XMS_ITS | Clinical Summary ---
Author Organization [facility] Address [address] [place] [address] Care Team Providers Care Metalizer Field Operation Name Role Phone Roberto Carroll MD Primary Care Provider + [phone] Encounters Date Type Department Care Team Description 09/14/2024 10:35 AM LICENSING DIRECTOR - 09/14/2024 11:59 PM LICENSING DIRECTOR Hospital Encounter [facility] Diagnostic Imaging [address] [facility] [place], [place] [id number] Karl Galvan PA Discharge Disposition: Home or Self Care (Routine Discharge) 09/14/2024 Travel from Last 3 Months Social History Tobacco Use Types Packs/Day Years Used Date Smoking Tobacco: Never Assessed Comments Unknown Sex and Gender Information Value Date Recorded Sex Assigned at Female 09/14/2024 10:36 AM LICENSING DIRECTOR Legal Sex Female 7:49 AM CDT Gender Identity Not on file Sexual Orientation Not on file Last Filed Vital Signs Vital Sign Reading Time Taken Comments Blood Pressure 118/80 09/16/2015 2:13 PM LICENSING DIRECTOR Pulse 88 09/16/2015 2:13 PM LICENSING DIRECTOR Temperature - - Respiratory Rate - - Oxygen Saturation - - Inhaled Oxygen Concentration - - Weight 98.9 kg (218 lb) 09/16/2015 2:13 PM LICENSING DIRECTOR Height 165.1 cm (5' 5 ) 04/22/2015 2:35 PM CDT Body Mass Index 36.28 04/22/2015 2:35 PM CDT Plan of Treatment Upcoming Encounters Date Type Department Care Team (Late st Contact Info) Description 01/11/2025 9:20 AM CDT Office Visit [facility] - [address], [address] [place] [address] Joesph Lewis MD [address] [place] [address] Health Maintenance Due Date Last Done Comments Colorectal Cancer Screening Colonoscopy (10 Years) 1975 Kidney Health Evaluation 1975 Annual Physical 1977 Pneumococcal Vaccine: Pediatrics (0 to 5 Years) and At-Risk Patients (6 to 49 Years) (1 of 2 - PCV) 1980 [...] 01/27/2022 01/27/2021, 10/02/2019 COVID-19 Vaccine ( - season) 2024 05/01/2021, 04/09/2021 PHQ-2 (Physician [place]) 08/23/2024 Zoster Vaccines (1 of 2) 2024 [...] XR ABD KUB Routine 09/14/2024 10:57 AM LICENSING DIRECTOR Type 2 diabetes mellitus with hyperglycemia ([facility]) LIPID PANEL Routine 01/27/2021 10:18 AM CDT HEMOGLOBIN, GLYCOSYLATED Routine 01/27/2021 10:18 AM CDT THINPREP IMAGING PAP REFLEX HPV MRNA E6/E7 Routine 02/15/2013 4:58 PM CDT from Last 3 Months or Most Recently Relevant to Health Maintenance Results * XR ABD KUB (09/14/2024 10:57 AM LICENSING DIRECTOR) Anatomical Region Laterality Modality Abdomen Computed Tomogra phy 09/14/2024 11:4 5 AM LICENSING DIRECTOR Impressions 09/14/2024 11:46 AM LICENSING DIRECTOR IMPRESSION: No acute findings Ordered By: KARL GALVAN Interpreted By: Shaan Marcelino MD, 09/14/2024 11:45 AM Narrative 09/14/2024 11:46 AM LICENSING DIRECTOR [address] [place] [address] Two VIEW(s) OF THE ABDOMEN History: Abdomen pain Comparison:None 2 views of the abdomen demonstrate a normal overall bowel gas pattern. Quantity of stool throughout the colon is within normal limits. A moderate amount of air is noted throughout the colon. No pathologic intra-abdominal calcifications are seen. The bony elements are intact Procedure Note Shaan Marcelino MD - 09/14/[address] Rojas [place] [address] Two VIEW(s) OF THE ABDOMEN History: Abdomen [...] Shaan Marcelino MD, 09/14/2024 11:45 AM Karl BACK GENERAL IMAGING Final Resu lt * HEMOGLOBIN, GLYCOSYLATED (01/27/2021 10:18 AM CDT) HGB A1C 5.3 4.2 - 6.3 % [facility] Comment: Note: Hemoglobinopathies such as HbF, HbS, etc. may give incorrect results with this test. ESTIMATED AVG GLUCOSE 90 mg/dL [facility] Comment: (This value is a calculated estimate of the mean blood glucose over the last 60 days based on the patient's HgbA1c value. 01/27/2021 10:1 8 AM CDT 01/27/2021 10:18 AM CDT Maria E Betancur MD LABORATORY Final Result [place] [address] [place] [address] * LIPID PANEL (01/27/2021 10:18 AM CDT) CHOLESTEROL 141 0 - 200 mg/dL [facility] TRIGLYCERIDES 139 0 - 150 mg/dL [facility] HDL 54 40 - 60 mg/dL [facility] LDL (CALCULATED) 59 10 - 130 mg/dL [facility] CARDIO RISK 3 [facility] Comment: CHOLESTEROL LEVELS AND CHD [...] Maria E Betancur MD LABORATORY Final Result JOSSIE RODRIGUEZ [address] [address] * THINPREP IMAGING PAP REFLEX HPV MRNA E6/E7 (02/15/2013 4:58 PM CDT) REFLEX ADDED no [facility] P TO EPIC CONVERSION 02/15/2013 4:58 PM CDT 02/15/2013 4:58 PM CDT Narrative [facility] TO EPIC CONVERSION - 02/15/2013 4:58 PM CDT This lab was migrated from [facility] and may be missing annotations or result text, please check the Media tab for the most complete results. us Nely Solano MD PATHOLOGY/CYTOLOGY ORDER MISA Final Result [facility] TO EPIC CONVERSION from Last 3 Months or Most Recently Relevant to [place] [address] MEDICARE Care Teams Metalizer Field Operation Relationship Specialty Start Date End Date Roberto Carroll MD [address] [place] [address] PCP - General PEDIATRICS 05/25/22
--- OUTSIDE RECORDS SUMMARY | 2024-12-08 00:03 | XMS_ITS | Patient Health Record ---
Author Organization [facility] Address [address] [place] [address] Care Team Providers Care Data Steward Name Role Phone Dr. Roberto Carroll Primary Care Provider [phone] Karl Robles Unavailable [phone] Kayli Mtz Unavailable [phone] Migration, Provider Unavailable Unavailable Allergies Allergen (clinical [...] Inactive Results Component Value Reference Range Notes Vitamin D, 25-Hydroxy Reviewed date:06/27/2024 12:00:00 AM Interpretation: Performing Lab: Notes/Report: Vitamin D, 25-Hydroxy 30.5 ng/mL Vitamin B12 and Folate Reviewed date:06/27/2024 12:00:00 AM Interpretation: Performing Lab: Notes/Report: Folate (Folic Acid), Serum >20.0 ng/mL Vitamin B12 646 pg/mL TSH+Free T4 Reviewed date:06/27/2024 12:00:00 AM Interpretation: Performing Lab: Notes/Report: T4,Free(Direct) 1.11 ng/dL TSH 1.070 uIU/mL Lipid Panel Reviewed date:06/27/2024 12:00:00 AM Interpretation: Performing Lab: Notes/Report: Cholesterol, Total 160 mg/dL HDL Cholesterol 43 mg/dL LDL Chol Calc ([facility]) 98 mg/dL Triglycerides 103 mg/dL VLDL Cholesterol Иван 19 mg/dL Hemoglobin A1c Reviewed date:06/27/2024 12:00:00 AM Interpretation: Performing Lab: Notes/Report: Hemoglobin A1c 6.7 % FSH and LH Reviewed date:06/27/2024 12:00:00 AM Interpretation: Performing Lab: Notes/Report: FSH 8.9 mIU/mL LH 10.2 mIU/mL Estradiol Reviewed date:06/27/2024 12:00:00 AM Interpretation: Performing Lab: Notes/Report: Estradiol 45.6 pg/mL CBC With Differential/Platel et Reviewed date:06/27/2024 12:00:00 [...] Protein, Total 6.9 g/dL Sodium 141 mmol/L Reason For Referral Reason Bulging Cervical Dis c with spinal stenosis and cervicalgia Diagnosis 1 Bulging of cervical intervertebral disc (M50.30) Referral Organization [facility] Referring Provider First Name Kayli Referring Provider Last Name Bibi Referring Provider Speciality Nurse Prac titioner Referred Provider Specialty Neurosurgery General Notes Kayli Mtz A PRN 08/30/2024 04:39:40 PM DIRECT CARE COUNSELOR >Refer to Dr. Eleni Adrian at [facility] in [place], [place] (neurosurgeon), Olga Esparza 09/04/2024 11:19:09 AM DIRECT CARE COUNSELOR >Referral faxed to Arlen Ponce Cortney 09/12/2024 10:00:52 AM DIRECT CARE COUNSELOR >Received document stating Dr. Lewis received the referral and reviewed. They feel routine appt is adequate for this pt. and will be contacting her to schedule. Referral Priority Urgent Reason chronic constipation Diagnosis 1 Chronic constipation (K59.09) Referral Organization [facility] Referring Provider First Name Karl Referring Provider Last Name Travis Referring Provider Speciality Physician Director Child Abuse Therapy Referred Provider Polo Blanco Referred Provider Specialty Gastroentero logy General Notes Olga Esparza 0 10/12/2024 11:29:43 AM DIRECT CARE COUNSELOR >Faxed referral to Dr. Blanco [phone] Referral Priority Routine Medications Medication SIG (Take, Route, Frequency, Duration) Notes Start Date End Date Status Venlafaxine HCl ER 150 MG 1 capsule Orally daily; Duration: 90 days Active Lidocaine 5 % 1 patch remove after 12 hours Externally Once a day; Duration: 14 days 08/30/2024 Active traMADol HCl 50 MG 1 tablet as needed Orally every 8 hours; Duration: 30 days 08/30/2024 Not-Taking Trulance 3 MG Oral; Duration: 30 Days Active metFORMIN HCl 850 MG 1 Oral two times a day; Duration: 90 days Dose increase 06/29/2024 Active Emgality Pen subcutaneous; Duration: 0 *[facility] and Interaction Alerts* 06/19/2024 Active traZODone HCl 100 MG 2 tablet Orally Once a day; Duration: 30 days at bedtime Active Lisinopril 5 MG 1 tablet Orally Once a day; Duration: 30 days 12/01/2024 Active Propranolol HCl 10 MG 1 tablet Orally every 12 hrs; Duration: 30 days As needed Not-Taking Diclofenac Sodium 75 MG 1 tablet Orally Twice a day; Duration: 21 days 12/01/2024 Active Linzess 290 MCG 1 capsule at least 30 minutes before the first meal of the day on an empty stomach Orally Once a day; Duration: 30 days As needed 09/19/2024 Not-Taking clonazePAM 0.5 MG 1 tablet Orally Once a day; Duration: 30 days As needed 11/17/2024 Active Immunizations Vaccine Route Administration Date Status Comme nts Tdap IM Intramuscular 12/01/2024 Administered Pfizer-Biontech Covid-19 Vaccine 1st dose Unknown 04/09/2021 Administered ,sourcename : Historical information -from other provider Source VFC Code: : Pfizer-Biontech Covid-19 Vaccine 1st dose Unknown 05/01/2021 Administered [facility] ,sourcename : Historical information -source unspecified Source VFC Code: : Influenza, quadrivalent (IIV4), split virus, 6-35 months dosage IM Intramuscular 06/12/2021 Administered ,sourcename : N ew immunization record ,immstatus : Complete Influenza, quadrivalent (IIV4), split virus, 6-35 months dosage IM Intramuscular 06/01/2023 Administered ,sourcename : N ew immunization record ,immstatus : Complete Social History Social History Drug/Alcohol: Social Info Question Answer Notes AUDIT-C (Standard) Did you have a drink containing alcohol in the past year? No Points 0 Interpretation Negative Problems Problem Type SNOMED Code ICD Code Onset Dates Problem Status W/U Status Risk Notes Problem Genital herpes simplex (48515069) Herpesviral infection of urogenital system, 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) 01/29/20 23 Active confirmed Problem Hypothyroidism (63925193) Hypothyroidism, unspecified (E03.9) Active confirmed Problem Hyperglycemia due to type 2 diabetes mellitus (128383800566686) Type 2 diabetes mellitus with hyperglycemia (E11.65) 06/29/20 24 Active confirmed Problem Vitamin D deficiency (97540750) Vitamin D deficiency, unspecified (E55.9) 06/12/20 21 Active confirmed Problem Overweight (672188803) Overweight (E66.3) 06/29/20 24 Active confirmed Problem Obesity (341127900) Obesity, unspecified (E66.9) Active confirmed Problem Moderate recurrent major depression (54137112) Major depressive disorder, recurrent, moderate (F33.1) 03/31/20 23 Active confirmed Problem Anxiety disorder (858868873) Anxiety disorder, unspecified (F41.9) 08/03/20 23 Active confirmed Problem Mental disorder (03004504) Mental disorder, not otherwise specified (F99) 06/12/20 21 Active confirmed Problem Migraine without aura, not refractory (disorder) (799188548) Migraine, unspecified, not intractable, without status migrainosus (G43.909) 09/20/19 Active confirmed Problem Insomnia (213548557) Insomnia, unspecified (G47.00) 09/20/19 24 Active confirmed Problem 58241398 Other chronic pain (G89.29) Active confirmed Problem Bilateral tinnitus (3771016288050) Tinnitus, bilateral (H93.13) 11/12/19 Active confirmed Problem Essential hypertension (45509783) Essential (primary) hypertension (I10) 06/19/20 24 Active confirmed Problem 8675642009879 Cervicalgia (M54.2) Active confirmed Problem Abnormal vaginal bleeding (586138071) Other specified abnormal uterine and vaginal bleeding (N93.8) 06/01/20 23 Active confirmed Problem 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) 03/31/20 23 Active confirmed Problem Palpitations (67800030) Palpitations (R00.2) 06/19/20 24 Active confirmed Problem Paresthesia (finding) (82169477) Paresthesia of skin (R20.2) 10/15/19 24 Active confirmed Problem Flushing (94214022) Flushing (R23.2) 06/19/20 24 Active confirmed Problem Generalized hyperhidrosis (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) Generalized hyperhidrosis (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) 06/19/20 24 Active confirmed Problem High risk heterosexual behavior (744117647259553) High risk heterosexual behavior (Z72.51) 10/06/19 Active confirmed Problem Dyspareunia (97632419) Unspecified dyspareunia (N94.10) 10/06/19 23 Active confirmed Problem 006830561 Bulging of cervical intervertebral disc (M50.30) Active confirmed Vital Signs Heart Rate 105 /min 12/01/2024 Temperature 98 degrees Fahrenheit 12/01/2024 Respiratory Rate 16 /min 08/30/2024 Blood pressure diastolic 84 mm Hg 12/01/2024 Oximetry 96 % 12/01/2024 Height-cm 165.1 cm 12/01/2024 Weight-kg 91.4 kg 12/01/2024 Height 65.00 in 12/01/2024 Blood pressure systolic 142 mm Hg 12/01/2024 Weight 201.5 lbs 12/01/2024 BMI 33.53 kg/m2 12/01/2024 Encounters Encounter Location Date Provider Diagnosis [address] [address] 12/10/2023 Provider Migration Migraine, unspecifie d, not intractable, without status migrainosus G43.[address] [address] 06/19/2024 Kayli Mtz Palpitations R00.2 ; Anxiety disorder, unspecified F41.9 ; Generalized hyperhidrosis R61 ; Flushing R23.2 and Essential (primary) hypertension I10 [address] [address] 06/29/2024 Kayli Mtz Type 2 diabetes mellitus with hyperglycemia E11.65 ; Essential (primary) hypertension I10 ; Anxiety disorder, unspecified F41.9 and Overweight E66.[address] [address] 08/30/2024 Kayli Mtz Cervical spinal stenosis M48.02 ; Bulging of cervical intervertebral disc M50.30 and Cervicalgia M54.[address] [address] 09/14/2024 Karl Robles Type 2 diabetes mellitus with hyperglycemia E11.65 and Chronic constipation K59.[address] [address] 12/01/2024 Dr. Roberto Carroll Type 2 diabetes mellitus with hyperglycemia E11.65 ; Vitamin D deficiency, unspecified E55.9 ; Essential (primary) hypertension I10 ; Screening mammogram for breast cancer Z12.31 ; Encounter for immunization Z23 ; Obesity, unspecified E66.9 ; Lumbar back pain M54.50 and Hypothyroidism, unspecified E03.[address] [address] 07/22/[address] [address] 07/23/[address] [address] 08/30/2024 Dr. Roberto Carroll [address] [address] 08/31/2024 Dr. Roberto Carroll Cervicalgia M54.2 ; Bulging of cervical intervertebral disc M50.30 and Cervical spinal stenosis M48.[address] [address] 09/15/[address] [address] 09/15/[address] [address] 09/18/[address] [address] 11/02/2024 Dr. Roberto Carroll [address] [address] 11/17/2024 Dr. Roberto Carroll [address] [address] 11/24/2024 Dr. Roberto Carroll Assessments Encounter Date Diagnosis (ICD Code) Assessment Notes Treatment Notes Treatment Clinical Notes Section Notes 08/31/2024 Bulging of cervical intervertebral disc (ICD-10 - M50.30) 06/29/2024 Type 2 diabetes mellitus with hyperglycemia (ICD-10 - E11.65) 06/29/2024 Overweight (ICD-10 - E66.3) 06/29/2024 Anxiety disorder, unspecified (ICD-10 - F41.9) 06/29/2024 Essential (primary) hypertension (ICD-10 - I10) 06/19/2024 Anxiety disorder, unspecified (ICD-10 - F41.9) 06/19/2024 Essential (primary) hypertension (ICD-10 - I10) 06/19/2024 Palpitations (ICD-10 - R00.2) 06/19/2024 Flushing (ICD-10 - R23.2) 06/19/2024 Generalized hyperhidrosis (ICD-10 - R61) 12/10/2023 Migraine, unspecified, not intractable, without status migrainosus (ICD-10 - G43.909) 08/30/2024 Cervical spinal stenosis (ICD-10 - M48.02) [...] heavy objects and recommend moderation in activities. 09/14/2024 Type 2 diabetes mellitus with hyperglycemia (ICD-10 - E11.65) Recommend glucose be taken on a scheduled basis, 1-2 hours after a large meal and once fasting would be a good routine to correlate sugar levels. A1c obtained. If post meal sugars are high may target with alternative diabetes medication. Continue metformin, previous A1c 3 months ago was 6.7. 12/01/2024 Type 2 diabetes mellitus with hyperglycemia (ICD-10 - E11.65) 12/01/2024 Vitamin D deficiency, unspecified (ICD-10 - E55.9) 08/31/2024 Cervicalgia (ICD-10 - M54.2) 08/31/2024 Cervical spinal stenosis (ICD-10 - M48.02) 09/14/2024 Chronic constipation (ICD-10 - K59.09) Linzess samples given to patient, 1 sample of 72mg and 1 of 290mg. KUB ordered to evaluate stool burden. Continue regimen with miralax and stool softeners. May continue enemas or suppositories PRN. Recommend trying senna again. Sending referral to GI for further eval of chronic constipation. 08/30/2024 Cervicalgia (ICD-10 - M54.2) 12/01/2024 Essential (primary) hypertension (ICD-10 - I10) 12/01/2024 Screening mammogram for breast cancer (ICD-10 - Z12.31) 12/01/2024 Encounter for immunization (ICD-10 - Z23) 12/01/2024 Obesity, unspecified (ICD-10 - E66.9) 12/01/2024 Lumbar back pain (ICD-10 - M54.50) 12/01/2024 Hypothyroidism, unspecified (ICD-10 - E03.9) Plan Of Treatment Pending Test Test Name Order Date MAMMOGRAM, SCREENING 12/01/2024 X ray : Kidneys, Ureters and Bladder (KU B) 09/14/2024 Hemoglobin A1C 09/14/2024 Future Test Test Name Order Date Hemoglobin A1c {Glycosylated} 03/22/2025 Vitamin D 25 Hydroxy 03/22/2025 CBC w Auto Diff 03/22/2025 Comprehensive Metabolic Panel 03/22/2025 Lipid Panel {Chol, Trig, HDL, LDL} 03/22 Free T4 And TSH 03/22/2025 Next Appt Details Provider Name:Karl cortes, 01/31/2025 09:45:00 AM, [employer], [place], [address], [phone] Provider Name:Dr. Roberto fountain, 12/03/2025 10:00:00 AM, [employer], [place], [address], [phone] Insurance Providers Payer Name Payer Address Payer Phone Subscriber Number Group Number Insured Name Patient Relationship to Insured Coverage Start Date Coverage End Date NGS Medicare RHC [address] [place] [address] [id number] Zaheer, Anuja Self - patient is the insured 2 [facility] [place] [address] [address] [place] [address] [id number] Zaheer, Anuja Self - patient is the insured 2 5 [facility] Medicare B [address] [place] [address] [id number] Zaheer, Anuja Self - patient is the [...]
--- OUTSIDE RECORDS SUMMARY | 2024-12-08 00:04 | XMS_ITS | Referral Summary ---
Author Organization [facility] Address [address] [address] Care Team Providers Care Experimental Outboard Motors Mechanic Name Role Phone Karl Robles Primary Care [...] on file Legal Sex Female 7:46 AM PLANER STONE Gender Identity Not on file Sexual Orientation [...] of Treatment Not on file Insurance MEDICARE [place] MED[place] Care Teams Experimental Outboard [employer] Mechanic Relationship Specialty Start Date End Date Karl Robles PCP - General 10/20/23
--- NOTE | 2024-12-08 07:21 | WPDANESEPPF ---
Anes - Initial Pre Proc Eval Procedure: Operation Date: 12/08/24 08:30 Proposed Procedures p Colonoscopy - Ankit Tan MD Date/Time: 12/08/24 07:21 Surgeon: Ankit Tan MD Pre Op Diagnosis: Constipation, unspecified Patient Data Age: 49 Gender: F Height: 1.65 m Weight: 87.7 kg Allergies Allergy/AdvReac Type Severity Reaction Status Date / Time Penicillins Allergy Rash Verified 11/29/24 10:48 propoxyphene (From Allergy Rash Verified 11/29/24 10:48 Darvocet-N) Home Medications ?Medication ?Instructions ?Recorded ?Confirmed ?Type clonazepam 0.5 mg tablet (Klonopin) 0.25 mg PO QHS 10/31/24 11/06/24 History lactulose 10 gram/15 mL oral 20 g (30 mL) PO DAILY PRN 10/31/24 11/06/24 Rx solution constipation #1,200 mL metformin 500 mg tablet 500 mg PO BID 10/31/24 11/06/24 History multivitamin (Daily Multi-Vitamin 1 tablet PO DAILY 10/31/24 11/06/24 History tablet) venlafaxine 150 mg 150 mg PO DAILY 10/31/24 11/06/24 History capsule,extended release 24 hr galcanezumab-gnlm 120 mg/mL 120 mg subcut MONTHLY 11/06/24 11/06/24 History subcutaneous pen injector (Emgality Pen) Patient hx anesthesia problems: none Family hx anesthesia problems: none Results Review: All pre-operative results and documents have been reviewed as part of the pre-operative evaluation. [facility] Past Medical History Medical History (Updated 12/08/24 @ 07:21 by Terry Copeland MD) Diabetes Obesity Constipation Social History Social History Smoking status: Never smoker Living arrangements: with family Spiritual care concerns: No Anes - Eval Final PreProcedure Day of Procedure 12/08/24 07:21 Patient weight: obese Heart: regular rate and rhythm Lungs: clear to auscultation Airway: Mallampati scale class II Neurological: alert and oriented Last oral intake: >/= 8 hours ASA classification: III Emergent: no Anesthetic plan: proceed Anesthesia type and monitoring: general GIVS and standard monitoring Results Review: All pre-operative results and documents have been reviewed as part of the pre-operative evaluation. Informed Consent: The patient's anesthetic plan and its attendant risks and benefits were discussed with the patient/family/POA. Questions were solicited and answers provided to the satisfaction of the patient/family/POA.
[2024-12-08 07:35] VITALS: BP 135/76; PULSE 111; RESP 16; TEMP 36.8; O2SAT 99
[2024-12-08 07:41] LABS: BEDSIDEPREGUCG Negative (Negative)
[2024-12-08 07:49] LABS: Glucose Point of Care 121 mg/dl (65-105)
[2024-12-08] MEDS: LACTATED RINGERS 1,000 ML 150 ML IV CONT (07:51)
--- NOTE | 2024-12-08 08:19 | PM.IMHP ---
H&P: HPI History of Present Illness Date/Time: 12/08/24 08:19 Chief Complaint: Screening colonoscopy Narrative: This is the patient's first colonoscopy. There are no GI symptoms and there is no family history of colorectal cancer. Review of Systems Review of Systems: All systems reviewed & are unremarkable except as noted in HPI and below [facility] Past Medical History Medical History (Updated 12/08/24 @ 08:19 by Ankit Tan MD) Diabetes Obesity Constipation Social History Social History Smoking status: Never smoker Living arrangements: with family Spiritual care concerns: No Meds Home Medications and Allergies Home Medications ?Medication ?Instructions ?Recorded ?Confirmed ?Type clonazepam 0.5 mg tablet (Klonopin) 0.25 mg PO QHS 10/31/24 12/08/24 History lactulose 10 gram/15 mL oral 20 g (30 mL) PO DAILY PRN 10/31/24 11/06/24 Rx solution constipation #1,200 mL metformin 500 mg tablet 500 mg PO BID 10/31/24 12/08/24 History multivitamin (Daily Multi-Vitamin 1 tablet PO DAILY 10/31/24 12/08/24 History tablet) venlafaxine 150 mg 150 mg PO DAILY 10/31/24 12/08/24 History capsule,extended release 24 hr galcanezumab-gnlm 120 mg/mL 120 mg subcut MONTHLY 11/06/24 12/08/24 History subcutaneous pen injector (Emgality Pen) diclofenac sodium 75 mg 75 mg PO Q12H 12/08/24 12/08/24 History tablet,delayed release lisinopril 5 mg tablet 5 mg PO DAILY 12/08/24 12/08/24 History Allergies Allergy/AdvReac Type Severity Reaction Status Date / Time Penicillins Allergy Rash Verified 12/08/24 07:29 propoxyphene (From Allergy Rash Verified 12/08/24 07:29 Darvocet-N) Vital Signs Vital Signs - 24 hr 12/08/24 07:35 Temperature 98.3 F Pulse Rate 111 H Respiratory Rate 16 Blood Pressure 135/76 Pulse Oximetry 99 Oxygen Delivery Room Air Exam Const: General: cooperative and healthy appearing Resp: Effort & Inspection: normal respiratory effort and able to speak in complete sentences Auscultation: clear to auscultation bilaterally Cardio: Rate: regular rate Rhythm: regular rhythm GI: Inspection: normal to inspection GI Palp: No No hepatosplenomegaly present Auscultation: normal bowel sounds Rectal Exam: deferred Skin: General skin exam: normal color Psych: Appearance: grossly normal Mental Status: mental status grossly normal Assessment and Plan Assessment and plan (1) Encounter for screening colonoscopy: Code(s): Z12.11 - Encounter for screening for malignant neoplasm of colon Status: Acute Assessment and Plan: The patient is deemed a good candidate for the procedure. Consent signed. Will proceed.
[2024-12-08 08:32] VITALS: BP 130/75; PULSE 99; RESP 16; O2SAT 99
[2024-12-08 08:42] VITALS: BP 132/85; PULSE 89; RESP 15; O2SAT 99
[2024-12-08 08:52] VITALS: BP 125/87; PULSE 91; RESP 15; O2SAT 99
== END 2024-12-08 09:01 | disposition home or self-care (01) ==
PROVIDERS: Anesthesiology; PCP Pediatrics; Referring Provider Nurse Practitioner Family; Visit Provider Internal Medicine Gastroenterology
PROC: 0DJD8ZZ Inspection of Lower Intestinal Tract, Via Natural or Artificial Opening Endoscopic (ICD-10-PCS; CPT 45378; principal; 2024-12-08 08:30)
DX: Z12.11 Encounter for screening for malignant neoplasm of colon (principal); Z53.8 Procedure and treatment not carried out for other reasons; E11.9 Type 2 diabetes mellitus without complications; E66.9 Obesity, unspecified; Z68.32 Body mass index [BMI] 32.0-32.9, adult; Z79.84 Long term (current) use of oral hypoglycemic drugs; Z79.85 Long-term (current) use of injectable non-insulin antidiabetic drugs
CPT/HCPCS: G0121; 82948; J2003; J2704; J7120

== ENCOUNTER 2024-12-17 18:19 | Emergency (ER) | payer MEDICARE, SELFPAY ==
--- OUTSIDE RECORDS SUMMARY | 2024-12-17 18:22 | XMS_ITS ---
Author Organization [facility] [employer] [employer] [facility] [employer] ([address]) Address [address] [facility] [address] [place] [address] Care Team Providers Care French Drawer Name Role Phone Dr. Pj Carroll Primary Care Provider Dr. Robin Bales Unavailable [phone] Aimee Mendez Unavailable [phone] REASON FOR VISIT Refills Medications Medication SIG [...] Active Encounters Encounter Location Date Provider Diagnosis [facility] [address] [employer] [facility] [address] [place] [address] 09/05/2024 Aimee Mendez Migraine without aura, not [...] the loading dose Next Appt Details Provider Name:Aimee Vyas roxane, 12/28/2024 07:30:00 AM, [address], [place], [address], Progress Notes * ANGELElmira ZunigaNatividadOB:1975 (48 yo F)Acc No.[id number]:09/05/2024 Patient: Anuja CLARK :1975 A ge:48 Y S ex:Female Address:[address] [place] [address] [place] [address] * Refills Refill Emgality Solution Auto-injector, 120 MG/ML, Subcutaneous, 1, 1 injection as maintenance dose, once every 4 weeks, 28 days, Refills=5 Start Emgality Solution Auto-injector, 120 MG/ML, Subcutaneous, 2, 2 injections as LOADING DOSE for the first month, once, 28 days, Refills=0 * true * Date: Generated for Laureano pennington/Jessica/Marioitting on: 0 12/17/2024 06:21 PM CDT
--- OUTSIDE RECORDS SUMMARY | 2024-12-17 18:22 | XMS_ITS ---
Author Organization [employer] [facility] [facility] [employer] [place] ([address]) Address [address] [place] [address] Care Team Providers Care Hemodialysis Technician Name Role Phone Dr. Pj Carroll Primary Care Provider Dr. Robin Bales Unavailable [phone] Amiee Mendez Unavailable [phone] Allergies Allergen (clinical drug ingredient) Drug/Non Drug [...] Blood pressure systolic 139 mm Hg 06/29/20 Blood pressure diastolic 85 mm Hg 024 Respiratory Rate 17 /min 06/29/2024 Height 65 in 06/29/2024 Weight 194.8 lbs 06/29/2024 BMI 32.41 kg/m2 06/29/2024 Oximetry 98 % 06/29/2024 Encounters Encounter Location Date Provider Diagnosis [facility] [address] [address] [place] [address] 06/29/2024 Aimee Andrea Migraine without aura, not intractable, without status [...] Provider Name:Aimee betts, 12/28/2024 07:30:00 AM, [address] [employer], [address], [place], [address], Progress Notes * Giulia ORTIZOB:1975 (48 yo F)Acc No.[id number]:06/29/2024 Progress Notes Patient: Anuja CLARK Provider: Nilesh Mendez APRN :1975 A ge:48 Y S ex:Female Date:06/29/2024 Address:[address] [place] [address] [facility] Pcp:Dr. Pj Carroll Subjective: * Chief Complaints: [...] *Please review and pick correct strength-formulation from Opposing Viewsspan options. If intended option is not shown, [...] *Please review and pick correct strength-formulation from Opposing Viewsspan options. If intended option is not shown, [...] Procedure Codes: 9 6160 PT-FOCUSED HLTH RISK [id number] DOC MEDS VERIFIED W/PT OR [id number] Complex e/m visit add on * Follow Up: R kishan: Evaluation and Management * Billing Information: * Visit Code: 91843 Office Visit, Est Pt., Level 4. Modifiers: 25 * Procedure Codes: 79301 PT-FOCUSED HLTH RISK ASSMT. G8427 DOC MEDS VERIFIED W/PT OR RE. G2211 Complex e/m visit add on. * MBLER INSTALLER GENERAL Sign off status: Completed true * Provider: Nilesh Mendez APRN Date: 08/29/2023 Generated for Laureano pennington/Jessica/eTsalomesmitting on: 0 12/17/2024 06:22 PM CDT History and Physical Notes * HPI [...]
--- OUTSIDE RECORDS SUMMARY | 2024-12-17 18:22 | XMS_ITS | Clinical Summary ---
Author Organization [facility] Address [address] [place] [address] Care Team Providers Care Retail Sales Specialist Name Role Phone Pj Carroll MD Primary Care Provider [phone] Source Comments [facility],non-owned Affiliates and Associated Physician Practices is amultiple site organization consisting of ambulatory clinics and hospital sitesin [place], [place], [place] and [place]. This disclosure is being madepursuant to the Care Everywhere program and may not contain all information available regarding this patient. 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
--- OUTSIDE RECORDS SUMMARY | 2024-12-17 18:22 | XMS_ITS | Patient Health Record ---
Author Organization [facility] Address [address] [place] [address] Care Team Providers Care Supervisor Ski Production Name Role Phone Dr. Roberto Carroll Primary Care Provider [phone] Karl Robles Unavailable [phone] Kayli Mtz Unavailable [phone] Migration, Provider Unavailable Unavailable Allergies Allergen (clinical [...] of cervical intervertebral disc (M50.30) Referral Organization [facility] Referring Provider First Name Kayli Referring Provider Last Name Bibi Referring Provider Speciality Nurse Prac titioner Referred Provider Specialty Neurosurgery General Notes Kayli Mtz A PRN 08/30/2024 04:39:40 PM PELT SHEARER >Refer to Dr. Eleni Adrian at [facility] in [place], [place] (neurosurgeon), Olga Esparza 09/04/2024 11:19:09 AM PELT SHEARER >Referral faxed to Arlen Ponce Cortney 09/12/2024 10:00:52 AM PELT SHEARER >Received document stating Dr. Lewis received the referral and reviewed. They feel routine appt is adequate for this pt. and will be contacting her to schedule. Referral Priority Urgent Reason chronic constipation Diagnosis 1 Chronic constipation (K59.09) Referral Organization [facility] Referring Provider First Name Karl Referring Provider Last Name Travis Referring Provider Speciality Physician Hoisting Engine Operator Referred Provider Polo Blanco Referred Provider Specialty Gastroentero logy General Notes Vilma Olga 0 10/12/2024 11:29:43 AM PELT SHEARER >Faxed referral to Dr. Blanco [phone] Referral Priority Routine Medications Medication SIG (Take, Route, Frequency, Duration) Notes Start Date End Date Status Azithromycin 250 MG 2 tablets the first day, then take 1 tablet daily for 4 days Orally daily; Duration: 5 days 12/15/2024 12/20/2024 Active Lidocaine 5 % 1 patch remove after 12 hours Externally Once a day; Duration: 14 days 08/30/2024 Active traMADol HCl 50 MG 1 tablet as needed Orally every 8 hours; Duration: 30 days 08/30/2024 Not-Taking Lisinopril 5 MG 1 tablet Orally Once a day; Duration: 30 days 12/01/2024 Active metFORMIN HCl 850 MG 1 Oral two times a day; Duration: 90 days Dose increase 06/29/2024 Active Trulance 3 MG Oral; Duration: 30 Days Active Venlafaxine HCl ER 150 MG 1 capsule Orally daily; Duration: 90 days Active Diclofenac Sodium 75 MG 1 tablet Orally Twice a day; Duration: 21 days 12/01/2024 Active Propranolol HCl 10 MG 1 tablet Orally every 12 hrs; Duration: 30 days As needed Not-Taking Emgality Pen subcutaneous; Duration: 0 *Reorder from [facility] for eRx and Interaction Alerts* 06/19/2024 Active Linzess 290 MCG 1 capsule at least 30 minutes before the first meal of the day on an empty stomach Orally Once a day; Duration: 30 days As needed 09/19/2024 Not-Taking traZODone HCl 100 MG 2 tablet Orally Once a day; Duration: 30 days at bedtime Active clonazePAM 0.5 MG 1 tablet Orally Once a day; Duration: 30 days As needed 11/17/2024 Active Immunizations Vaccine Route Administration Date Status Comme nts Tdap IM Intramuscular 12/01/2024 Administered [employer] Covid-19 Vaccine 1st dose Unknown 04/09/2021 Administered ,sourcename : Historical information -from other provider Source VFC Code: : Pfizer-[employer] Covid-19 Vaccine 1st dose Unknown 05/01/2021 Administered [facility] ,sourcename : Historical information -source [...] Status Risk Notes Problem Genital herpes simplex (12114733) Herpesviral infection of urogenital system, 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) 01/29/20 23 Active confirmed Problem Hypothyroidism (46398508) Hypothyroidism, unspecified (E03.9) Active confirmed Problem Hyperglycemia due to type 2 diabetes mellitus (523649426256374) Type 2 diabetes mellitus with hyperglycemia (E11.65) 06/29/20 24 Active confirmed Problem Vitamin D deficiency (95593327) Vitamin D deficiency, unspecified (E55.9) 06/12/20 21 Active confirmed Problem Overweight (885183912) Overweight (E66.3) 06/29/20 24 Active confirmed Problem Obesity (457295416) Obesity, unspecified (E66.9) Active confirmed Problem Moderate recurrent major depression (18952787) Major depressive disorder, recurrent, moderate (F33.1) 03/31/20 Active confirmed Problem Anxiety disorder (244513342) Anxiety disorder, unspecified (F41.9) 08/03/20 Active confirmed Problem Mental disorder (81685306) Mental disorder, not otherwise specified (F99) 06/12/20 Active confirmed Problem Migraine without aura, not refractory (disorder) (499282378) Migraine, unspecified, not intractable, without status migrainosus (G43.909) 09/20/19 Active confirmed Problem Insomnia (097344485) Insomnia, unspecified (G47.00) 09/20/19 Active confirmed Problem 22300326 Other chronic pain (G89.29) Active confirmed Problem Bilateral tinnitus (3347398249699) Tinnitus, bilateral (H93.13) 11/12/19 Active confirmed Problem Essential hypertension (49242715) Essential (primary) hypertension (I10) 06/19/20 Active confirmed Problem 8362617321501 Cervicalgia (M54.2) Active confirmed Problem Abnormal vaginal bleeding (623107233) Other specified abnormal uterine and vaginal bleeding (N93.8) 06/01/20 Active confirmed Problem 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) 03/31/20 Active confirmed Problem Palpitations (55184835) Palpitations (R00.2) 06/19/20 Active confirmed Problem Paresthesia (finding) (55132254) Paresthesia of skin (R20.2) 10/15/19 Active confirmed Problem Flushing (79786487) Flushing (R23.2) 06/19/20 Active confirmed Problem Generalized hyperhidrosis (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) Generalized hyperhidrosis (R61) 06/19/20 Active confirmed Problem High risk heterosexual behavior (497934790621206) High risk heterosexual behavior (Z72.51) 10/06/19 Active confirmed Problem Dyspareunia (46883818) Unspecified dyspareunia (N94.10) 10/06/19 Active confirmed Problem 113738940 Bulging of cervical intervertebral disc (M50.30) Active confirmed Vital Signs Heart Rate 85 /min 12/15/2024 Temperature 97.5 degrees Fahrenheit 12/15/2024 Respiratory Rate 16 /min 08/30/2024 Blood pressure diastolic 80 mm Hg 12/15/2024 Oximetry 98 % 12/15/2024 Height-cm 165.1 cm 12/15/2024 Weight-kg 91.4 kg 12/01/2024 Height 65.00 in 12/15/2024 Blood pressure systolic 142 mm Hg 12/15/2024 Weight 201.5 lbs 12/01/2024 BMI 33.53 kg/m2 12/01/2024 Encounters Encounter Location Date Provider Diagnosis [address] [address] 06/19/2024 Kayli Mtz Palpitations R00.2 ; Anxiety disorder, unspecified F41.9 ; Generalized hyperhidrosis R61 ; Flushing R23.2 and Essential (primary) hypertension I10 [address] [address] 06/29/2024 Kayli Mtz Type 2 diabetes mellitus with hyperglycemia E11.65 ; Essential (primary) hypertension I10 ; Anxiety disorder, unspecified F41.9 and Overweight E66.[address] [address] 12/15/2024 Karl Robles Upper respiratory tract infection, unspecified type J06.[address] [address] 08/30/2024 Kayli Mtz Cervical spinal stenosis M48.02 ; Bulging of cervical intervertebral disc M50.30 and Cervicalgia M54.[address] [address] 09/14/2024 Karl Travis Type 2 diabetes mellitus with hyperglycemia E11.65 and Chronic constipation K59.[address] [address] 12/01/2024 Dr. Roberto Carroll Type 2 diabetes mellitus with hyperglycemia E11.65 ; Vitamin D deficiency, unspecified E55.9 ; Essential (primary) hypertension I10 ; Screening mammogram for breast cancer Z12.31 ; Encounter for immunization Z23 ; Obesity, unspecified E66.9 ; Lumbar back pain M54.50 and Hypothyroidism, unspecified E03.[address] [address] 07/22/2024 Provider Migration [address] [address] 07/23/2024 Provider Migration [address] [address] 08/30/2024 Dr. Roberto Carroll [address] [address] 08/31/2024 Dr. Roberto Carroll Cervicalgia M54.2 ; Bulging of cervical intervertebral disc M50.30 and Cervical spinal stenosis M48.[address] [address] 09/15/[address] [address] 09/15/[address] [address] 09/18/[address] [address] 11/02/2024 Dr. Roberto Carroll [address] [address] 11/17/2024 Dr. Roberto Carroll [address] [address] 11/24/2024 Dr. Roberto Carroll Assessments Encounter Date Diagnosis (ICD Code) Assessment Notes Treatment Notes Treatment Clinical Notes Section Notes 08/30/2024 Cervical spinal stenosis (ICD-10 - M48.02) [...] heavy objects and recommend moderation in activities. 06/29/2024 Type 2 diabetes mellitus with hyperglycemia (ICD-10 - E11.65) 06/29/2024 Overweight (ICD-10 - E66.3) 06/29/2024 Anxiety disorder, unspecified (ICD-10 - F41.9) 06/29/2024 Essential (primary) hypertension (ICD-10 - I10) 06/19/2024 Anxiety disorder, unspecified (ICD-10 - F41.9) 06/19/2024 Essential (primary) hypertension (ICD-10 - I10) 06/19/2024 Palpitations (ICD-10 - R00.2) 06/19/2024 Flushing (ICD-10 - R23.2) 06/19/2024 Generalized hyperhidrosis (ICD-10 - R61) 12/15/2024 Upper respiratory tract infection, unspecified type (ICD-10 - J06.9) 12/01/2024 Type 2 diabetes mellitus with hyperglycemia (ICD-10 - E11.65) 12/01/2024 Vitamin D deficiency, unspecified (ICD-10 - E55.9) 09/14/2024 Type 2 diabetes mellitus with hyperglycemia (ICD-10 - E11.65) Recommend glucose be taken on a scheduled basis, 1-2 hours after a large meal and once fasting would be a good routine to correlate sugar levels. A1c obtained. If post meal sugars are high may target with alternative diabetes medication. Continue metformin, previous A1c 3 months ago was 6.7. 08/31/2024 Cervicalgia (ICD-10 - M54.2) 08/31/2024 Bulging of cervical intervertebral disc (ICD-10 - M50.30) 08/30/2024 Cervicalgia (ICD-10 - M54.2) 08/31/2024 Cervical spinal stenosis (ICD-10 - M48.02) 09/14/2024 Chronic constipation (ICD-10 - K59.09) Linzess samples given to patient, 1 sample of 72mg and 1 of 290mg. KUB ordered to evaluate stool burden. Continue regimen with miralax and stool softeners. May continue enemas or suppositories PRN. Recommend trying senna again. Sending referral to GI for further eval of chronic constipation. 12/01/2024 Essential (primary) hypertension (ICD-10 - I10) 12/01/2024 Screening mammogram for breast cancer (ICD-10 - Z12.31) 12/01/2024 Encounter for immunization (ICD-10 - Z23) 12/01/2024 Obesity, unspecified (ICD-10 - E66.9) 12/01/2024 Lumbar back pain (ICD-10 - M54.50) 12/01/2024 Hypothyroidism, unspecified (ICD-10 - E03.9) 12/15/2024 Other Suggested debro x for her ears because of the ear wax. Also suggested Flonase. Plan Of Treatment Pending Test Test Name [...] And TSH 03/22/2025 Next Appt Details Provider Name:Dr. Roberto fountain, 12/03/2025 10:00:00 AM, [address] [place], [address], [phone] Insurance Providers Payer Name Payer Address Payer Phone Subscriber Number Group Number Insured Name Patient Relationship to Insured Coverage Start Date Coverage End Date [facility] Medicare [facility] [address] [place] [address] [id number] Zaheer, Anuja Self - patient is the insured [facility] [address] [address] [place] [address] [id number] Zaheer, Anuja Self - patient is the insured 2 5 [facility] Medicare B [address] [place] [address] [id number] Zaheer, Anuja Self - patient is the [...]
--- OUTSIDE RECORDS SUMMARY | 2024-12-17 18:22 | XMS_ITS | Patient Health Record ---
Author Organization [facility] [employer] [place] ([address]) Address [address] [place] [address] Care Team Providers Care Chef Manager Name Role Phone Dr. Pj Carroll Primary Care Provider Dr. Robin Bales Unavailable [phone] [facility], Provider Unavailable Unavailab Aimee Culver Unavailable [phone] Allergies Allergen (clinical drug ingredient) Drug/Non Drug Allergy documented on EMR Reaction Allergy Type Onset Date Status DARVOCET (uncoded) rash Allergy A ctive penicillin V Penicillin V Potassium rash Drug Allergy Active Reason For Referral No Information Medications Medication [...] review and pick correct strength-formulat ion from [employer] options. If intended option is not shown, [...] Problem Chronic migraine without aura, non-refractory (disorder) (322614749686225) Migraine without aura, not intractable, without status migrainosus (G43.009) Active confirmed Problem Migraine with aura (1832331) Migraine with aura, not intractable, without status migrainosus (G43.109) Active confirmed Problem Chronic migraine without aura, non-intractable (300437922576264) Chronic migraine without aura, not intractable, without status migrainosus (G43.709) Active confirmed Problem Drug induced headache (925528124742964) Drug-induced headache, not elsewhere classified, not intractable (G44.40) Active confirmed Problem Degeneration of cervical intervertebral disc (18888610) Other cervical disc degeneration, unspecified cervical region (M50.30) Active confirmed Problem Cervicalgia (94759608) Cervicalgia (M54.2) Active confirmed Problem Fibromyalgia (415523356) Fibromyalgia (M79.7) Active confirmed Problem Paresthesia (finding) (78317111) Paresthesia of skin (R20.2) Active confirmed Problem Chronic fatigue syndrome (disorder) (17486162) Chronic fatigue, unspecified (R53.82) Active confirmed Problem Muscle pain (54344016) Myalgia, unspecified site (M79.10) Active confirmed Vital Signs Respiratory Rate 17 /min 06/29/2024 Oximetry 98 % 06/29/2024 Blood pressure diastolic 85 mm Hg 06/29/2024 Height 65 in 06/29/2024 Blood pressure systolic 139 mm Hg 06/29/2024 Weight 194.8 lbs 06/29/2024 BMI 32.41 kg/m2 06/29/2024 Encounters Encounter Location Date Provider Diagnosis BRENDEN Duque [address] [place] [address] 02/05/2024 Provider [facility] Migraine without aura, not intractable, without status migrainosus G43.009 and Fibromyalgia M79.7 [facility] [address] [place] [address] 01/20/2024 Robin Montana Migraine without aura, not intractable, without status migrainosus G43.009 ; Fibromyalgia M79.7 and Cervicalgia M54.2 [facility] [address] [place] [address] 04/06/2024 Robin Montana Migraine without aura, not intractable, without status migrainosus G43.009 ; Fibromyalgia M79.7 and Cervicalgia M54.[address] [address] 06/29/2024 Aimee Mendez Migraine without aura, not intractable, without status migrainosus G43.009 ; Fibromyalgia M79.7 and Cervicalgia M54.[address] [address] 12/21/2023 Robin Montana [facility] [address] [place] [address] 04/06/2024 Robin Montana [facility] [address] [place] [address] 06/28/2024 Robin Montana [address] [address] 09/05/2024 Aimee Mendez Migraine without aura, not intractable, without status migrainosus G43.009 Assessments Encounter Date Diagnosis (ICD Code) Assessment Notes Treatment Notes Treatment Clinical Notes Section Notes 09/05/2024 Migraine without aura, not intractable, without status migrainosus (ICD-10 - G43.009) 02/05/2024 Migraine without aura, not intractable, without status migrainosus (ICD-10 - G43.009) 02/05/2024 Fibromyalgia (ICD-10 - M79.7) 06/29/2024 Migraine without aura, not intractable, without [...] - M79.7) Continue venlafaxine at present dose. 04/06/2024 Migraine without aura, not intractable, without [...] - M79.7) Continue Venlafaxine at present dose. 01/20/2024 Migraine without aura, not intractable, without [...] think we need to do further testing. 01/20/2024 Cervicalgia (ICD-10 - M54.2) Recommended chiropractic evaluation. 04/06/2024 Cervicalgia (ICD-10 - M54.2) 06/29/2024 Cervicalgia (ICD-10 - M54.2) Continue venlafaxine at present dose. Plan Of Treatment Pending Test Test Name Order Date -Hemoglobin A1c 11/11/2023 -Hemoglobin A1c 12/15/2023 -Vitamin D, 25-Hydroxy 12/15/2023 -Vitamin D, 25-Hydroxy 11/11/2023 MRI : Brain (with and without gadolinium ) 11/11/2023 MRI : Spine, Cervical (with and without gadolinium) 11/11/2023 Next Appt Details Provider Name:iAmee betts, 12/28/2024 07:30:00 AM, [address] [facility], [address], [place], [address], Insurance Providers Payer Name Payer Address Payer Phone Subscriber Number Group Number Insured Name Patient Relationship to Insured Coverage Start Date Coverage End Date [employer] (Medicare) Attention Claims [address] [place] [address] [id number] Anuja Schwab Self - patient is the insured Medical (General) History Medical History History ICD Code Obesity Prior h/o diabetes meliitus - reports re solved after weight loss Depression Migraine Fibromyalgia Other specified diabetes mellitus withou t complications E13.9
--- OUTSIDE RECORDS SUMMARY | 2024-12-17 18:22 | XMS_ITS | Referral Summary ---
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
--- OUTSIDE RECORDS SUMMARY | 2024-12-17 18:22 | XMS_ITS | Clinical Summary ---
Author Organization [facility] Address [address] [place] [address] Care Team Providers Care Machine Turner Name Role Phone Roberto Carroll MD Primary Care Provider [phone] Social History Tobacco Use Types Packs/Day Years Used Date Smoking Tobacco: Never Assessed Comments Unknown Sex and Gender Information Value Date Recorded Sex Assigned at Female 09/14/2024 10:36 AM DRAW FRAME TENDER Legal Sex Female 7:49 AM CDT Gender Identity Not on file Sexual Orientation Not on file Last Filed Vital Signs Vital Sign Reading Time Taken Comments Blood Pressure 118/80 09/16/2015 2:13 PM DRAW FRAME TENDER Pulse 88 09/16/2015 2:13 PM DRAW FRAME TENDER Temperature - - Respiratory Rate - - Oxygen Saturation - - Inhaled Oxygen Concentration - - Weight 98.9 kg (218 lb) 09/16/2015 2:13 PM DRAW FRAME TENDER Height 165.1 cm (5' 5 ) 04/22/2015 2:35 PM CDT Body Mass Index 36.28 04/22/2015 2:35 PM CDT Plan of Treatment Upcoming Encounters Date Type Department Care Team (Late st Contact Info) Description 01/11/2025 9:20 AM CDT Office Visit [facility] [address] [facility], [address] [place] [phone] Joesph Lewis MD [address] [place] [address] Health Maintenance Due Date Last Done Comments Colorectal Cancer Screening Colonoscopy (10 Years) 1974 Kidney Health Evaluation 1974 Annual Physical 1977 Diabetes: Retinopathy Eye Exam 1992 Hepatitis C 1992 DTaP, Tdap and Td Vaccines (1 - Tdap) 1993 Hepatitis B Vaccines (1 of 3 - 19+ 3-dose series) 1993 Pneumococcal Vaccine: 50+ Years (1 of 2 - PCV) 1993 Cervical Cancer Screening Pap with HPV Testing (Age 30 to 64) Every 5 Years 2004 Mammogram Screening 2014 Cervical Cancer Screening Pap Smear (Age 30 to 64) Every 3 Years 02/16/2016 02/15/2013 Cervical Cancer Screening with HPV 02/16/2016 Hemoglobin A1C 07/29/2021 01/27/2021, 09/23, 04/17/2015, Additional history exists Lipid Panel 01/27/2022 01/27/2021, 10/02/2019 COVID-19 Vaccine ( season) 2024 05/01/2021, 04/09/2021 PHQ-2 (Physician [facility] [place]) 08/23/2024 Zoster Vaccines (1 of 2) 2024 [...] Procedure Name Priority Date/Time Associated Diagnosis Comments LIPID PANEL Routine 01/27/2021 10:18 AM CDT HEMOGLOBIN, GLYCOSYLATED Routine 01/27/2021 10:18 AM CDT THINPREP IMAGING PAP REFLEX HPV MRNA E6/E7 Routine 02/15/2013 4:58 PM CDT from Last 3 Months or Most Recently Relevant to Health Maintenance Results * HEMOGLOBIN, GLYCOSYLATED (01/27/2021 10:18 AM CDT) HGB A1C 5.3 4.2 - 6.3 % [facility] Comment: Note: Hemoglobinopathies such as HbF, HbS, etc. may give incorrect results with this test. ESTIMATED AVG GLUCOSE 90 mg/dL [facility] Comment: (This value is a calculated estimate of the mean blood glucose over the last 60 days based on the patient's HgbA1c value. 01/27/2021 10:1 8 AM CDT 01/27/2021 10:18 AM CDT Maria E Betancur MD LABORATORY Final Result [facility] [address] [place] [address] * LIPID PANEL (01/27/2021 10:18 AM CDT) CHOLESTEROL 141 0 - 200 mg/dL [facility] TRIGLYCERIDES 139 0 - 150 mg/dL [facility] HDL 54 40 - 60 mg/dL [facility] LDL (CALCULATED) 59 10 - 130 mg/dL [facility] CARDIO RISK 3 [facility] Comment: CHOLESTEROL LEVELS AND CHD [...] Maria E Betancur MD LABORATORY Final Result [facility] [address] [address] * THINPREP IMAGING PAP REFLEX HPV MRNA E6/E7 (02/15/2013 4:58 PM CDT) REFLEX ADDED no [facility] P TO EPIC CONVERSION 02/15/2013 4:58 PM CDT 02/15/2013 4:58 PM CDT Narrative [facility] TO EPIC CONVERSION - 02/15/2013 4:58 PM CDT This lab was migrated from [facility] and may be missing annotations or result text, please check the Media tab for the most complete results. us Nely Solano MD PATHOLOGY/CYTOLOGY ORDER MISA Final Result [facility] TO EPIC CONVERSION from Last 3 Months or Most Recently Relevant to Health [place] [id number] Care Teams Machine Turner Relationship Specialty Start Date End Date Roberto Carroll MD [address] [place] [id number] PCP - General PEDIATRICS 05/25/22
--- OUTSIDE RECORDS SUMMARY | 2024-12-17 18:22 | XMS_ITS ---
Author Organization [facility] [place] ([address]) Address [address] [facility] [address] [place] [address] Care Team Providers Care Cook Tortilla Name Role Phone Dr. Pj Carroll Primary Care Provider Dr. Robin Bales [facility] [phone] REASON FOR VISIT (Apt 06/29) Botox Inquiry Encounters Encounter Location Date Provider Diagnosis [address] [address] 06/28/2024 Robin Montana Plan Of Treatment Next Appt Details Provider Name:Aimee betts, 12/28/2024 07:30:00 AM, [address] [facility], [address], [place], [address], Progress Notes * Giulia ORTIZOB:1975 (48 yo F)Acc No.[id number]:06/28/2024 Patient: Anuja CLARK :1975 A ge:48 Y S ex:Female Address: [place] [address] * true * Date: Generated for Jovannyi gorge/Famaryg/eTransmitting on: 0 12/17/2024 06:22 PM CDT
--- OUTSIDE RECORDS SUMMARY | 2024-12-17 18:22 | XMS_ITS ---
Author Organization [facility] Address [address] [place] [address] Care Team Providers Care Vessel Slag Worker Name Role Phone Dr. Roberto Carroll Primary Care Provider [phone] Karl Robles Unavailable [phone] REASON FOR VISIT spot 2 ears and congestion Medications Medication SIG (Take, Route, Frequency, Duration) Notes Start Date End Date Status Venlafaxine HCl ER 150 MG 1 capsule Orally daily; Duration: 90 days Active Diclofenac Sodium 75 MG 1 tablet Orally Twice a day; Duration: 21 days 12/01/2024 Active Lidocaine 5 % 1 patch remove after 12 hours Externally Once a day; Duration: 14 days 08/30/2024 Active Lisinopril 5 MG 1 tablet Orally Once a day; Duration: 30 days 12/01/2024 Active metFORMIN HCl 850 MG 1 Oral two times a day; Duration: 90 days Dose increase 06/29/2024 Active Linzess 290 MCG 1 capsule at [...] Duration: 30 days As needed 11/17/2024 Active Azithromycin 250 MG 2 tablets the first day, then take 1 tablet daily for 4 days Orally daily; Duration: 5 days 12/15/2024 12/20/2024 Active traMADol HCl 50 MG 1 tablet as needed Orally every 8 hours; Duration: 30 days 08/30/2024 Not-Taking Trulance 3 MG Oral; Duration: 30 Days Active Propranolol HCl 10 MG 1 tablet Orally every 12 hrs; Duration: 30 days As needed Not-Taking Emgality Pen subcutaneous; Duration: 0 *Reorder from [facility] for eRx and Interaction Alerts* 06/19/2024 Active Vital Signs Temperature 97.5 degrees Fahrenheit 12/16/19 Blood pressure systolic 142 mm Hg 12/16/19 Blood pressure diastolic 80 mm Hg 025 Heart Rate 85 /min 12/15/2024 Height 65.00 in 12/15/2024 Oximetry 98 % 12/15/2024 Height-cm 165.1 cm 12/15/2024 Encounters Encounter Location Date Provider Diagnosis [address] [address] 12/15/2024 [facility] Upper respiratory tract infection, unspecified type J06.9 Assessments Encounter Date Diagnosis (ICD Code) Assessment Notes Treatment Notes Treatment Clinical Notes Section Notes 12/15/2024 Upper respiratory tract infection, unspecified type (ICD-10 - J06.9) 12/15/2024 Other Suggested debrox for her ears because of the ear wax. Also suggested Flonase. Plan Of Treatment Medication Medication Name Sig Start Date Stop Date Notes Azithromycin 250 MG 2 tablets the first day, then take 1 tablet daily for 4 days Orally daily; Duration: 5 days 12/15/2024 12/20/2024 Treatment Notes Assessment Notes Other Suggested debrox for her ears because of the ear wax. Also suggested Flonase. Next Appt Details Provider Name:Dr. Roberto fountain, 12/03/2025 10:00:00 AM, [address] [place] [address], [place], [address], [phone] History and Physical Notes * HPI (History of Present Illness) Category Sub-Category Detail Notes Category Not es HPI Lots of congest ion and her Equilibrium is off a little and her ears keep popping. Examination Category Sub-Category Detail Notes Category Not es General Examination General appearance: alert, p leasant, well-nourished and in no acute distress Head: normocephalic, atrau matic Eyes: both eyes, conjuncti va clear Ears: lots of wax. Unable to see the ear drum. Nose: lots of green discha rge. Throat: clear, no erythema, no exudate, pharynx normal Heart: regular rate and rhy thm without murmurs, gallops, clicks or rubs, S1 and S2 are normal and no S3 and S4 gallop Lungs: clear to auscultatio n bilaterally, with good air movement and no rales, rhonchi or wheezes Neurologic: alert and oriented Skin: skin is warm and dry , with no rashes, good skin turgor and normal hair distribution Lymph nodes: no cervical lymphade nopathy Psych: normal affect / mood Oral cavity: normal, mucosa moist , tongue is midline Progress Notes * ANGELElmira PADRONyDOB:1975 (49 yo F)Acc No.[id number]:12/15/2024 Patient: Anuja Dickerson Provider: WONG Mccauley :1975 A ge:49 Y S ex:Female Date:12/15/2024 Phone: Address:[address] [place], [place] [id number] Pcp:Dr. Roberto Carroll Subjective: * Chief Complaints: * S pot 2 ears and congestion * HPI: H PI: Lots of congestion and her E quilibrium is off a little and her ears keep popping. * Medications: T akingTrulance 3 MG Tablet Oral Emgality Pen subcutaneous , Notes to Pharmacist: *Reorder from [facility] for eRx and Interaction Alerts*traZODone HCl 100 MG Tablet 2 tablet Orally Once a day at bedtimeclonazePAM 0.5 MG Tablet 1 tablet Orally Once a day As neededLidocaine 5 % Patch 1 patch remove after 12 hours Externally Once a day metFORMIN HCl 850 MG Tablet 1 Oral two times a day , Notes to Pharmacist: Dose increaseLisinopril 5 MG Tablet 1 tablet Orally Once a day Diclofenac Sodium 75 MG Tablet Delayed Release 1 tablet Orally Twice a day Venlafaxine HCl ER 150 MG Capsule Extended Release 24 Hour 1 capsule Orally daily Taking Trulance 3 MG Tablet Oral Taking Emgality Pen subcutaneous , Notes to Pharmacist: *Reorder from [facility] for eRx and Interaction Alerts*Taking traZODone HCl 100 MG Tablet 2 tablet Orally Once a day at bedtimeTaking clonazePAM 0.5 MG Tablet 1 tablet Orally Once a day As neededTaking Lidocaine 5 % Patch 1 patch remove after 12 hours Externally Once a day Taking metFORMIN HCl 850 MG Tablet 1 Oral two times a day , Notes to Pharmacist: Dose increaseTaking Lisinopril 5 MG Tablet 1 tablet Orally Once a day Taking Diclofenac Sodium 75 MG Tablet Delayed Release 1 tablet Orally Twice a day Taking Venlafaxine HCl ER 150 MG Capsule Extended Release 24 Hour 1 capsule Orally daily Not-TakingPropranolol HCl 10 MG Tablet 1 tablet Orally every 12 hrs As neededLinzess 290 MCG Capsule 1 capsule at least 30 minutes before the first meal of the day on an empty stomach Orally Once a day As neededtraMADol HCl 50 MG Tablet 1 tablet as needed Orally every 8 hours Not-Taking Propranolol HCl 10 MG Tablet 1 tablet Orally every 12 hrs As neededNot-Taking Linzess 290 MCG Capsule 1 capsule at least 30 minutes before the first meal of the day on an empty stomach Orally Once a day As neededNot- Taking traMADol HCl 50 MG Tablet 1 tablet as needed Orally every 8 hours Objective: * Vitals: B P:142/80mm Hg, HR:85/min, Temp:97.5F, Oxygen sat %:98%, Ht: 65.00 in, Ht-cm: 165.1 cm. * Examination: G eneral Examination: General appearance: a lert, pleasant, well-nourished and in no acute distress. Head: n ormocephalic, atraumatic. Eyes: b oth eyes, conjunctiva clear. Ears: l ots of wax. Unable to see the ear drum.. Nose: l ots of green discharge.. Oral cavity: n ormal, mucosa moist, tongue is midline. Throat: c lear, no erythema, no exudate, pharynx normal.? Lymph nodes: n o cervical lymphadenopathy. Skin: s kin is warm and dry, with no rashes, good skin turgor and normal hair distribution. Heart: r egular rate and rhythm without murmurs, gallops, clicks or rubs, S1 and S2 are normal and no S3 and S4 gallop. Lungs: c lear to auscultation bilaterally, with good air movement and no rales, rhonchi or wheezes. Neurologic: a lert and oriented. Psych: n ormal affect / mood. Assessment: * Assessment: 1. U pper respiratory tract infection, unspecified type - J06.9 (Primary) Plan: * Treatment: 2. O thers Notes: Suggested debrox for her ears because of the ear wax. Also suggested Flonase. ? Billing Information: * Procedure Codes: * Electronic signature of Rigoberto Robles on 12/17/2024 at 06:22 PM CDT Sign off status: Pending * Provider: WONG Mccauley Date: 0 12/15/2024 Generated for Laureano pennington/Jessica/Kena on: 0 12/17/2024 06:22 PM CDT
--- OUTSIDE RECORDS SUMMARY | 2024-12-17 18:22 | XMS_ITS | Clinical Summary ---
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
[2024-12-17 18:32] VITALS: BP 131/76; PULSE 101; RESP 18; TEMP 36.6
--- OUTSIDE RECORDS SUMMARY | 2024-12-17 19:30 | XMS_ITS | Clinical Summary ---
Author Organization [facility] [employer] Address [address] [place] [address] Care Team Providers Care Batting Machine Operator Insulation Name Role Phone Pj Carroll MD Primary Care Provider [phone] Source Comments [facility] [employer]non-owned Affiliates and Associated Physician Practices is amultiple site organization consisting of ambulatory clinics and hospital sitesin [place], [place] and [place]. This disclosure is being madepursuant to the Care Everywhere program and may not contain all information available regarding this patient. Last updated 18.[facility] [employer] 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
--- OUTSIDE RECORDS SUMMARY | 2024-12-17 19:30 | XMS_ITS | Clinical Summary ---
Author Organization [facility] Address [address] [place] [address] Care Team Providers Care Superintendent Distribution Name Role Phone Roberto Carroll MD Primary Care Provider [phone] Social History Tobacco Use Types Packs/Day Years Used Date Smoking Tobacco: Never Assessed Comments Unknown Sex and Gender Information Value Date Recorded Sex Assigned at Female 09/14/2024 10:36 AM SUBSTATION ELECTRICIAN Legal Sex Female 7:49 AM CDT Gender Identity Not on file Sexual Orientation Not on file Last Filed Vital Signs Vital Sign Reading Time Taken Comments Blood Pressure 118/80 09/16/2015 2:13 PM SUBSTATION ELECTRICIAN Pulse 88 09/16/2015 2:13 PM SUBSTATION ELECTRICIAN Temperature - - Respiratory Rate - - Oxygen Saturation - - Inhaled Oxygen Concentration - - Weight 98.9 kg (218 lb) 09/16/2015 2:13 PM SUBSTATION ELECTRICIAN Height 165.1 cm (5' 5 ) 04/22/2015 2:35 PM CDT Body Mass Index 36.28 04/22/2015 2:35 PM CDT Plan of Treatment Upcoming Encounters Date Type Department Care Team (Late st Contact Info) Description 01/11/2025 9:20 AM CDT Office Visit [facility] - [facility] [address], [address] [place] [phone] Joesph Lewis MD [address] [place] [address] Health Maintenance Due Date Last Done Comments [...] ( season) 2024 05/01/2021, 04/09/2021 PHQ-2 (Physician [place]) 08/23/2024 Zoster Vaccines (1 of 2) 2024 [...] HGB A1C 5.3 4.2 - 6.3 % [facility] Comment: Note: Hemoglobinopathies such as HbF, HbS, etc. may give incorrect results with this test. ESTIMATED AVG GLUCOSE 90 mg/dL [facility] Comment: (This value is a calculated estimate of the mean blood glucose over the last 60 days based on the patient's HgbA1c value. 01/27/2021 10:1 8 AM CDT 01/27/2021 10:18 AM CDT Maria E Betancur MD LABORATORY Final Result [facility] [address] [place] [address] * LIPID PANEL (01/27/2021 10:18 AM CDT) CHOLESTEROL 141 0 - 200 mg/dL [facility] TRIGLYCERIDES 139 0 - 150 mg/dL [facility] HDL 54 40 - 60 mg/dL [facility] LDL (CALCULATED) 59 10 - 130 mg/dL [facility] CARDIO RISK 3 [facility] Comment: CHOLESTEROL LEVELS AND CHD RISK INTERPRETATIONS [...] Betancur MD LABORATORY Final Result [facility] [address] [address] * [facility] PAP REFLEX HPV MRNA E6/E7 (02/15/2013 4:58 PM CDT) REFLEX ADDED no [facility] P TO EPIC CONVERSION 02/15/2013 4:58 PM CDT 02/15/2013 4:58 PM CDT Narrative [facility] TO EPIC CONVERSION - 02/15/2013 4:58 PM CDT This lab was migrated from [facility] and may be missing annotations or result text, please check the Media tab for the most complete results. us Nely Solano MD PATHOLOGY/CYTOLOGY ORDER MISA Final Result [facility] TO EPIC CONVERSION from Last 3 Months or Most Recently Relevant to Health [place] [id number] Care Teams Superintendent Distribution Relationship Specialty Start Date End Date Roberto Carroll MD [address] [place] [address] PCP - General PEDIATRICS 05/25/22
--- OUTSIDE RECORDS SUMMARY | 2024-12-17 19:30 | XMS_ITS | Clinical Summary ---
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
--- OUTSIDE RECORDS SUMMARY | 2024-12-17 19:30 | XMS_ITS | Referral Summary ---
Author Organization [facility] Address [address] [address] Care Team Providers Care Design Coordinator Name Role Phone Karl Robles Primary Care [...] on file Legal Sex Female 7:46 AM SOFTWARE BUSINESS ANALYST Gender Identity Not on file Sexual Orientation [...] of Treatment Not on file Insurance MEDICARE [facility] MEDICARE IDPA Care Teams Design Coordinator Relationship Specialty Start Date End Date Karl Robles PCP - General 10/20/23
--- NOTE | 2024-12-17 19:34 | PC.NURSE ---
patient states she was prescribed azithromycin for her ear/ sinus infection. pt states she is now having hearing loss/ tinnitus/ and dizziness. pt states she was using an at home ear irrigation kit to soften the wax in her ears. pt states the pressure is starting to become unbearable.
--- NOTE | 2024-12-17 20:42 | PC.NURSE ---
this rn irrigated patient bilateral ears at this time. this rn was able to remove large amounts of impacted cerumen in bilateral ears. this rn the removed cerumen at bedside for edp dr. conway to observe. pt states she has increased dizziness after removal of impacted cerumen.
--- NOTE | 2024-12-17 20:47 | ED_ITS ---
HPI - Ear Problem General Chief complaint: Ear Stated complaint: sinus infection, wax Time Seen by Provider: 12/17/24 19:11 Source: patient Mode of arrival: ambulatory Limitations: no limitations History of Present Illness HPI Narrative: This is a 49-year-old female, with history of anxiety, hypertension and diabetes, presents emergency department complaining of difficulty hearing from the left ear for the past several days. The patient states she was previously seen by her primary care doctor who stated she had significant amount wax in the ears and other changes concerning for sinus infection. She was given Debrox but has been unable to get much maximum years. She complains of difficulty hearing and occasional mild dizziness with rapid movement of her head. She denies weakness, numbness, change/loss of vision or hearing. She has no other complaints at this time. Related Data Home Medications ?Medication ?Instructions ?Recorded ?Confirmed ?Last Taken ?Type clonazepam 0.5 mg tablet (Klonopin) 0.25 mg PO QHS 10/31/24 12/08/24 12/07/24 History metformin 500 mg tablet 500 mg PO BID 10/31/24 12/08/24 12/07/24 History multivitamin (Daily Multi-Vitamin 1 tablet PO DAILY 10/31/24 12/08/24 12/07/24 History tablet) venlafaxine 150 mg 150 mg PO DAILY 10/31/24 12/08/24 12/07/24 History capsule,extended release 24 hr galcanezumab-gnlm 120 mg/mL 120 mg subcut MONTHLY 11/06/24 12/08/24 11/06/24 History subcutaneous pen injector (Emgality Pen) diclofenac sodium 75 mg 75 mg PO Q12H 12/08/24 12/08/24 12/07/24 History tablet,delayed release lisinopril 5 mg tablet 5 mg PO DAILY 12/08/24 12/08/24 12/07/24 History Allergies Allergy/AdvReac Type Severity Reaction Status Date / Time Penicillins Allergy Rash Verified 12/08/24 07:29 propoxyphene (From Allergy Rash Verified 12/08/24 07:29 Darvocet-N) Review of Systems Review of Systems: All systems reviewed & are unremarkable except as noted in HPI and below PMFSH Past Medical History Medical History Diabetes Obesity Constipation Social History Social History Smoking status: Never smoker Living arrangements: with family Spiritual care concerns: No Exam Narrative: GENERAL: Well-developed, well-nourished, and in no acute distress. HEAD: Normocephalic, atraumatic. EYES: PERRLA and EOMI. ENT: Cerumen impaction bilaterally, unable to assess TMs. Nares clear, no rhinorrhea or epistaxis. Mucous membranes moist. Oropharynx without tonsillar hypertrophy exudate or other lesions. CHEST: Clear to auscultation. No respiratory distress. No wheezes rales or rhonchi HEART: Regular rate and rhythm. No murmur heard. Normal peripheral pulses. SKIN: Warm, dry, no rash. NEURO: Alert and oriented x3. No focal deficit. Moving all 4 limbs spontaneously PSYCH: Normal mood and affect. Course Course Emergency Course: - The patient's ears were disimpacted by irrigation by nursing staff. The TMs appear intact bilaterally. There is mild erythema and swelling at the anterior aspect of the right external auditory canal consistent with otitis externa. Will discharge with antibiotic ear drops and recommendation primary care follow-up. I discussed the findings and recommendations with the patient. Discussed return and emergency precautions including signs/symptoms of labyrinthitis and stroke. The patient voiced understanding and agreement with the plan. All questions answered to her satisfaction. Vital Signs Vital signs: Vital Signs Temperature 97.8 F 12/17/24 18:32 Pulse Rate 101 H 12/17/24 18:32 Respiratory Rate 18 12/17/24 18:32 Blood Pressure 131/76 12/17/24 18:32 Oxygen Delivery Room Air 12/17/24 18:32 Temperature 97.8 F 12/17/24 18:32 Pulse Rate 101 H 12/17/24 18:32 Respiratory Rate 18 12/17/24 18:32 Blood Pressure 131/76 12/17/24 18:32 Oxygen Delivery Room Air 12/17/24 18:32 Procedures Ear Wax Removal Both Ears: Ear Wax Removal Date: 12/17/24 Ear Wax Removal Time: 20:40 Cerumenolytic Used: other Results: Re-examined: cerumen removed completely TM Examination: TM(s) intact, normal appearance and other (Erythema and mild swelling of the right external auditory canal) Ear Canal Exam: atraumatic Patient Tolerated Procedure: well Complications: no problems Technique: ear canal irrigated Medical Decision Making MDM Narrative Medical decision making narrative: Plan: Cerumen disimpaction, reassess Differential Diagnosis Differential Diagnosis: Cerumen impaction, TM perforation, otitis media, otitis externa, other Vital Signs Vital Signs: Vital Signs Temperature 97.8 F 12/17/24 18:32 Pulse Rate 101 H 12/17/24 18:32 Respiratory Rate 18 12/17/24 18:32 Blood Pressure 131/76 12/17/24 18:32 Oxygen Delivery Room Air 12/17/24 18:32 Temperature 97.8 F 12/17/24 18:32 Pulse Rate 101 H 12/17/24 18:32 Respiratory Rate 18 12/17/24 18:32 Blood Pressure 131/76 12/17/24 18:32 Oxygen Delivery Room Air 12/17/24 18:32 Discharge Plan Discharge Clinical Impression: Cerumen impaction Qualifiers: Laterality: bilateral Qualified Code(s): H61.23 - Impacted cerumen, bilateral Otitis externa Qualifiers: Otitis externa type: unspecified type Chronicity: acute Laterality: right Qualified Code(s): H60.501 - Unspecified acute noninfective otitis externa, right ear Patient Disposition: Home Condition: Stable Instructions: Antibiotic Form, Earache (ED) Additional Instructions: You were seen in the emergency department. Your ears were irrigated. The right ear canal appears irritated may be infected. I recommend a course antibiotic ear drops and follow-up with your primary care doctor. If you develop weakness/numbness new or worsening hearing loss, severe ear pain, severe dizziness, or if you have other emergent concerns for life, limb, or eyesight, return to the emergency department. Patient Language: New Zealander Prescriptions: New ciprofloxacin-dexamethasone 0.3-0.1 % drops,suspension 4 drp RIGHT EAR Q12H 7 Days Qty: 7.5 0RF No Action venlafaxine 150 mg capsule,extended release 24hr 150 mg PO DAILY metformin 500 mg tablet 500 mg PO BID clonazepam [Klonopin] 0.5 mg tablet 0.25 mg PO QHS Rx Instructions: administer 30 minutes before bedtime multivitamin [Daily Multi-Vitamin] Tablet 1 tablet PO DAILY lactulose 10 gram/15 mL solution 20 g PO DAILY PRN (Reason: constipation) Qty: 1200 5RF Emgality Pen 120 mg/mL pen injector 120 mg SUBCUT MONTHLY diclofenac sodium 75 mg tablet,delayed release (DR/EC) 75 mg PO Q12H lisinopril 5 mg tablet 5 mg PO DAILY lubiprostone [Amitiza] 24 mcg capsule 24 mcg PO BID 30 Days Qty: 60 5RF Follow-up/Referrals: Roberto Carroll MD [Primary Care Provider] - 2 Weeks Time of Disposition: 20:49
== END 2024-12-17 21:27 | disposition home or self-care (01) ==
PROVIDERS: Emergency Provider Preventive Medicine Aerospace Medicine; PCP Pediatrics
DX: H61.23 Impacted cerumen, bilateral (principal); H60.501 Unspecified acute noninfective otitis externa, right ear; E11.9 Type 2 diabetes mellitus without complications; E66.9 Obesity, unspecified; Z68.32 Body mass index [BMI] 32.0-32.9, adult; Z79.84 Long term (current) use of oral hypoglycemic drugs; Z79.899 Other long term (current) drug therapy
CPT/HCPCS: 69209; 99283

== ENCOUNTER 2025-02-15 09:00 | Outpatient (RCR) | payer MEDICARE, SELFPAY ==
--- NOTE | 2024-11-21 14:29 | OPREHPOC ---
Outpatient Therapy Plan of Care This is a Multidisciplinary Plan of Care that may contain components documented by all disciplines (PT, OT, and ST.) PT Problem 1 PT Problem #1 Knowledge Deficit PT Goal 1 Goal / Goal Update 1. Patient will perform independent HEP Target Visit 3 PT Problem 2 PT Problem #2 Impaired Functional ADLs PT Goal 1 Goal / Goal Update 1. Patient will report urinary incontinence no more than 1 time a week 2. Patient will report 3 BM per week Target Visit 6 PT Problem 3 PT Problem #3 Pain PT Goal 1 Goal / Goal Update 1. No pain with pelvic exam 2. Abdominal pain no higher than 2/10 with typical activities Target Visit 6 PT Problem 4 PT Problem #4 Impaired Flexibility PT Goal 1 Goal / Goal Update 1. Pt will demonstrate improved pelvic floor muscle tone to only mildly increased tone. Target Visit 6
--- NOTE | 2024-11-21 14:29 | PTOPEVAL1 ---
Assessment and note entered by Louise Antonio DPT Evaluation Information Assessment Status Evaluation Diagnosis k59.00 ICD-10 Condition Codes (PT) Weakness R53.1,Pelvic and perineal pain R10.2, Stress incontinence N39.3 Subjective Information Pt reports a history of constipation for years and has been worsening. Has gone up to a month without BM, has ended up in the ER and given meds. Was supposed to have a colonoscopy last week but the prep did not work. Gets low abdominal/pelvic pain, highest 10/10 and lowest 0/10. Lately has been having BM once a week and only if she uses an enema. Voids more than 10 times a day and wakes up 2 times at night to void. Can hold urge to void a few minutes. Sometimes pain with urination and has multiple UTI's recently. Urinary incontinence with coughing, laughing a few times a day. Wears pads and sometimes has to change clothes. Does report a history of pelvic pain, has not used tampons in years due to pain and some discomfort with pap smears. Pt has been 5 times, 3 C -section deliveries. No other PACKAGE WINDER or b/b diagnoses . Patient goal: have a BM normally Diet: 2 32 ounce sodas a day, hot tea in the morning and sometimes iced tea later in the day. Some water daily. Pt eats 3 meals a day, sometimes snacks. Eats all food groups but does not eat much fruit or vegetable. Has tried fiber supplements for years but did not seem to help with constipation and caused a lot of bloating. Return to MD is not scheduled. Will be getting another colonoscopy on 12/08. Reported Pain Level Pain Score 0: Self Report Assessment PT Clinical Summary The patient is presenting to skilled therapy with a long history of worsening constipation and reports of pelvic pain and urinary incontinence. She presents with severe increased pelvic floor muscle tone and pain with palpation as well as decreased hip and abdominal strength. These impairments are contributing to her constipation, pain, and incontinence. She will highly benefit from skilled therapy to address her impairments to reduce pain, constipation, and incontinence in order to restore function. Plan of Care Interventions Electrical Stimulation,Hot Pack/Cold Pack,Manual Therapy,Neuro Re-education,Patient/Caregiver Education,Therapeutic Activities,Therapeutic Exercise PT Services Indicated Yes Treatment Frequency and 1 time a week for 6 visits Duration These treatments will address the objective and functional deficits as defined above. The patient will be advanced safely and appropriately in order for the patient to progress towards his/her prior level of function. Additional exercises will be introduced and as well as a comprehensive home exercise program upon discharge, if needed, ?to ensure carryover of functional gains achieved in the clinic. This treatment plan has been reviewed and agreement upon by the patient.
--- NOTE | 2025-01-08 13:55 | PCPTNOTE ---
Patient no showed for appointment 01/08/25- when called patient stated she forgot and rescheduled to next week.
--- NOTE | 2025-01-18 09:38 | OPREHPOC ---
Outpatient Therapy Plan of Care This is a Multidisciplinary Plan of Care that may contain components documented by all disciplines (PT, OT, and ST.) PT Problem 1 PT Problem #1 Knowledge Deficit PT Goal 1 Goal / Goal Update 1. Patient will perform independent HEP Target Visit 3 Progress Met PT Problem 2 PT Problem #2 Impaired Functional ADLs PT Goal 1 Goal / Goal Update 1. Patient will report urinary incontinence no more than 1 time a week 2. Patient will report 3 BM per week update 01/18/25 1. not met 2. improved frequency but not 3 per week Target Visit 11 Progress Partially Met PT Problem 3 PT Problem #3 Pain PT Goal 1 Goal / Goal Update 1. No pain with pelvic exam 2. Abdominal pain no higher than 2/10 with typical activities update 01/18/25 1. not reassessed per patient 2. 3/10 highest Target Visit 11 Progress Partially Met PT Problem 4 PT Problem #4 Impaired Flexibility PT Goal 1 Goal / Goal Update 1. Pt will demonstrate improved pelvic floor muscle tone to only mildly increased tone. update 01/18/25 1. not assessed per patient request Target Visit 11 Progress Not Met
--- NOTE | 2025-01-18 09:38 | PTOPPROG ---
Assessment and note entered by Louise Antonio DPT Evaluation Information Assessment Status Progress Diagnosis k59.00 ICD-10 Condition Codes (PT) Weakness R53.1,Pelvic and perineal pain R10.2, Stress incontinence N39.3 Subjective Information Overall is feeling improvements with therapy and is noticing some more sporadic, independent BM. States it has been a long time since she has not had to use an enema until recently. Highest pain recently 3/10 and lowest 0/10. Voiding about 10 times a day and waking up 1 time at night. Urinary incontinence times in the last week. Assessment PT Clinical Summary The patient has made some progress in therapy and reports greatly decreased abdominal and pelvic pain overall to 3/10 highest. She reports infrequent BM recently (which is improved frequency) and demonstrates improved hip strength and less tenderness with palpation of abdomen. She will continue to benefit from therapy to further address constipation, pelvic/abdominal pain, as well as reports of urinary incontinence and frequency in order to restore full function. Plan of Care Interventions Electrical Stimulation,Hot Pack/Cold Pack,Manual Therapy,Neuro Re-education,Patient/Caregiver Education,Therapeutic Activities,Therapeutic Exercise PT Services Indicated Yes Treatment Frequency and 1 time a week for 5 visits Duration These treatments will address the objective and functional deficits as defined above. The patient will be advanced safely and appropriately in order for the patient to progress towards his/her prior level of function. Additional exercises will be introduced and as well as a comprehensive home exercise program upon discharge, if needed, ?to ensure carryover of functional gains achieved in the clinic. This treatment plan has been reviewed and agreement upon by the patient.
--- NOTE | 2025-02-01 10:03 | PCPTNOTE ---
Patient canceled appointment for 02/01/25.
== END 2025-02-19 23:59 | disposition home or self-care (01) ==
LOC: ANHGOSHPT 09:00
PROVIDERS: PCP Pediatrics; Visit Provider Nurse Practitioner Family
DX: K59.00 Constipation, unspecified (principal); R53.1 Weakness; R10.2 Pelvic and perineal pain; N39.3 Stress incontinence (female) (male)
CPT/HCPCS: 97014; 97110; 97112; 97140; 97162; 97530; G0283

== ENCOUNTER 2025-02-22 09:05 | Outpatient (RCR) | payer MEDICARE, SELFPAY ==
--- NOTE | 2025-02-22 09:42 | OPREHPOC ---
Outpatient Therapy Plan of Care This is a Multidisciplinary Plan of Care that may contain components documented by all disciplines (PT, OT, and ST.) PT Problem 1 PT Problem #1 Knowledge Deficit PT Goal 1 Goal / Goal Update 1. Patient will perform independent HEP Target Visit 3 Progress Met PT Problem 2 PT Problem #2 Impaired Functional ADLs PT Goal 1 Goal / Goal Update 1. Patient will report urinary incontinence no more than 1 time a week 2. Patient will report 3 BM per week update 01/18/25 1. not met 2. improved frequency but not 3 per week update 02/22/25 1. improved to 2 2. improved to 2 Target Visit 12 Progress Partially Met PT Problem 3 PT Problem #3 Pain PT Goal 1 Goal / Goal Update 1. No pain with pelvic exam 2. Abdominal pain no higher than 2/10 with typical activities update 01/18/25 1. not reassessed per patient 2. 3/10 highest update 02/22/25 1. 4/10 2. 7/10 highest but 0/10 lowest and average 2-3/10 Target Visit 12 Progress Partially Met PT Problem 4 PT Problem #4 Impaired Flexibility PT Goal 1 Goal / Goal Update 1. Pt will demonstrate improved pelvic floor muscle tone to only mildly increased tone. update 01/18/25 1. not assessed per patient request update 02/22/25 1. moderate Target Visit 12 Progress Partially Met
--- NOTE | 2025-02-22 09:42 | PTOPPROG ---
Assessment and note entered by Louise Antonio DPT Evaluation Information Assessment Status Progress Diagnosis k59.00 ICD-10 Condition Codes (PT) Weakness R53.1,Pelvic and perineal pain R10.2, Stress incontinence N39.3 Subjective Information Last BM 4 days ago, thinks she is average 2 BM per week. States her medicine is being changed again. Highest pain in the last week 7/10 and lowest 0/ 10. Average pain has been 2-3/10. No enema use over the last 4 weeks. Voiding 6-7 times a day and 1 time at night. Urinary incontinence 2 times in the last week. Assessment PT Clinical Summary The patient has continued to make some progress in therapy and she demonstrates improved pelvic floor muscle tone and improved abdominal strength. She reports normalized voiding frequency and is averaging 2 BM per week. She continues to have abdominal/pelvic pain and difficulty with BM. She will benefit from continued therapy to further address muscle tone and pain to improve bowel frequency and restore full function. Plan of Care Interventions Electrical Stimulation,Hot Pack/Cold Pack,Manual Therapy,Neuro Re-education,Patient/Caregiver Education,Therapeutic Activities,Therapeutic Exercise PT Services Indicated Yes Treatment Frequency and 1 visit in 4 weeks Duration These treatments will address the objective and functional deficits as defined above. The patient will be advanced safely and appropriately in order for the patient to progress towards his/her prior level of function. Additional exercises will be introduced and as well as a comprehensive home exercise program upon discharge, if needed, ?to ensure carryover of functional gains achieved in the clinic. This treatment plan has been reviewed and agreement upon by the patient.
--- NOTE | 2025-03-22 09:21 | PCPTNOTE ---
Patient did not show up for appointment 03/22/25. Left voicemail for patient to reschedule.
--- NOTE | 2025-04-30 15:34 | PTOPDC ---
Assessment and note entered by Louise Antonio DPT Evaluation Information Assessment Status Discharge - Pt Not Present Diagnosis k59.00 ICD-10 Condition Codes (PT) Weakness R53.1,Pelvic and perineal pain R10.2, Stress incontinence N39.3 Subjective Information - Assessment PT Clinical Summary Patient has not attended therapy since 02/22/25. Her case will be discharged this date. Plan of Care PT Services Indicated No
== END 2025-05-01 15:44 | disposition home or self-care (01) ==
LOC: ANHGOSHPT 09:05
PROVIDERS: Visit Provider Nurse Practitioner Family
DX: K59.00 Constipation, unspecified (principal)
CPT/HCPCS: 97530

== ENCOUNTER 2025-04-25 09:49 | Outpatient (CLI) | payer MEDICARE, SELFPAY ==
--- OUTSIDE RECORDS SUMMARY | 2024-02-05 16:30 | XMS_ITS ---
Author Organization [employer] [place] ([address]) Address [address] [place] [id number] Care Team Providers Care Wafer Polishing Worker Name Role Phone Dr. Pj Carroll Primary Care Provider Dr. Robin Bales Unavailable [phone] Z[employer]-Migration, Provider Unavailable Unavailab le Allergies Allergen (clinical drug ingredient) Drug/Non Drug Allergy documented on EMR Reaction Allergy Type Onset Date Status DARVOCET (uncoded) rash Allergy A ctive penicillin V Penicillin V Potassium rash Drug Allergy Active [facility] Conversion Encounter Medications Medication SIG (Take, Route, Frequency, Duration) Notes Start Date End Date Status traZODone HCl 50 MG as directed orally Active Zavzpret 10 MG 1 SPRAY INTRANASALLY ONCE DAILY, NO REPEAT DOSE; Duration: 30 DAYS *Please review and pick correct strength-formulat ion from [facility] options. If intended option is not shown, discontinue and re-order from Quick Search* 12/15/2023 Active clonazePAM 0.5 MG 1 tab(s) orally 2 times daily Active Valium 5 MG 1 tab orally 20 minutes prior to MRI; Duration: 1 days 11/11/2023 Not-Taking Rizatriptan Benzoate 10 MG 1 tab orally once, can repeat x1 after 2-4 hours; Duration: 30 days 11/11/2023 Not-Taking Venlafaxine HCl ER 150 MG 1 cap(s) orally once a day Active AIMOVIG SURECLICK AUTOINJECTOR AOOE 70 MG/ML DIRECTED SUBCUTANEOUSLY EVERY 4 WEEKS *Please review for potential replacement for e-prescription and drug interaction check* 12/20/2023 Active Social History Sex Assigned At : Social History Observation Description Sex Assigned At Female Encounters Encounter Location Date Provider Diagnosis [facility] [place] [address] 02/05/2024 Provider Hair Migraine without aura, not intractable, without status migrainosus G43.009 and Fibromyalgia M79.7 Assessments Encounter Date Diagnosis (ICD Code) Assessment Notes Treatment Notes Treatment Clinical Notes Section Notes 02/05/2024 Migraine without aura, not intractable, without status migrainosus (ICD-10 - G43.009) 02/05/2024 Fibromyalgia (ICD-10 - M79.7) Plan Of Treatment Medication Medication Name Sig Start Date Stop Date Notes Venlafaxine HCl ER 150 MG 1 cap(s) orally once a day AIMOVIG SURECLICK AUTOINJECTOR AOOE 70 MG/ML DIRECTED SUBCUTANEOUSLY EVERY 4 WEEKS 12/20/2023 *Please review for potential replacement for e-prescription and drug interaction check* Progress Notes * Giulia ORTIZOB:1975 (49 yo F)Acc No.[id number]:02/05/2024 Patient: Anuja CLARK Provider: Vivek Brito :1975 A ge:48 Y S ex:Female Date:02/05/2024 Address:[address] [place], [place] [id number] Pcp:Dr. Pj Carroll Subjective: * Chief Complaints: * 1 . Multum To [facility] Conversion Encounter. * Medical History: * Medications: T aking traZODone HCl 50 MG Tablet as directed orally , Taking clonazePAM 0.5 MG Tablet 1 tab(s) orally 2 times daily , Taking Zavzpret 10 MG SPRAY 1 SPRAY INTRANASALLY ONCE DAILY, NO REPEAT DOSE , Notes to Pharmacist: *Please review and pick correct strength-formulation from [facility] options. If intended option is not shown, discontinue and re-order from Quick Search*, Not-Taking/PRN Rizatriptan Benzoate 10 MG Tablet 1 tab orally once, can repeat x1 after 2-4 hours , Not-Taking/PRN Valium 5 MG Tablet 1 tab orally 20 minutes prior to MRI * Allergies: P enicillin V Potassium: rash, DARVOCET: rash. Objective: * Vitals: Assessment: * Assessment: 1. M igraine without aura, not intractable, without status migrainosus - G43.009 (Primary) 2 . F ibromyalgia - M79.7 Plan: * Treatment: 2. F ibromyalgia Continue Venlafaxine HCl ER Capsule Extended Release 24 Hour, 150 MG, 1 cap(s), orally, once a day.? * Billing Information: * Visit Code: * Procedure Codes: * Electronic signature of Karsten COLES-Migration on 04/25/2025 at 10:49 AM CDT Sign off status: Pending * Provider: Vivek mcneill Migration Date: 0 02/05/2024 Generated for Laureano pennington/Jessica/Kena on: 0 04/25/2025 10:49 AM CDT
--- OUTSIDE RECORDS SUMMARY | 2024-06-08 12:30 | XMS_ITS ---
Author Organization [facility] [place] ([address]) Address [address] [place] [address] Care Team Providers Care Surveillance Investigator Name Role Phone Dr. Pj Carroll Primary Care Provider Dr. Robin Bales Unavailable [phone] Aimee Mendez Unavailable [phone] REASON FOR VISIT Headache follow-up Social History Sex Assigned At : Social History Observation Description Sex Assigned At Female Encounters Encounter Location Date Provider Diagnosis [facility] [address] [place] [address] 06/08/2024 Aimee Mendez Plan Of Treatment No Information Progress Notes * Giulia ORTIZOB:1975 (49 yo F)Acc No.[id number]:06/08/2024 Progress Notes Patient: Anuja CLARK Provider: Nilesh Mendez APRN :1975 A ge:48 Y S ex:Female Date:06/08/2024 Address: [address] [facility] Pcp:Dr. Pj Carroll Subjective: * Chief Complaints: * 1 . Headache follow-up. * Medical History: Objective: * Vitals: Assessment: Plan: * Treatment: * Billing Information: * Visit Code: * Procedure Codes: * Electronic signature of LOUISE Rodriguez on 04/25/2025 at 10:48 AM CDT Sign off status: Pending * Provider: Nilesh Mendez APRN Date: 1 Generated for Laureano pennington/Jessica/Kena on: 0 04/25/2025 10:48 AM CDT
--- NOTE | ~2025-04-25 | CT_ITS ---
EXAM: CT abdomen pelvis w con - 04/25/2025 10:00 CDT History: 49 years old Female with K59.00 - Constipation, unspecified TECHNIQUE: Multidetector CT of the abdomen and pelvis with intravenous contrast. Coronal and sagittal reformats were also provided for review. Automatic exposure control was used for this study. CONTRAST: 100 cc of Optiray 350 was used for this study. COMPARISON: None Available. FINDINGS: VISUALIZED CHEST: Mild dependent changes. ABDOMEN and PELVIS: LIVER: Within normal limits. GALLBLADDER: Cholelithiasis. BILE DUCTS: No dilatation. SPLEEN: Within normal limits. PANCREAS: Within normal limits. ADRENAL GLANDS: Within normal limits. KIDNEYS and URETERS: No hydronephrosis or hydroureter. No nephroureterolithiasis. URINARY BLADDER: Within normal limits. STOMACH and BOWEL: Multiple fluid-filled distended loops of small and large bowel are seen, nonspecific finding and can be seen in colitis. REPRODUCTIVE ORGANS: 3.6 x 3.4 cm left adnexal cyst, likely ovarian cyst. MESENTERY/PERITONEAL CAVITY: No free fluid or pneumoperitoneum. LYMPH NODES: No abdominal or pelvic lymphadenopathy. ABDOMINAL WALL: Small fat-containing umbilical hernia. VASCULATURE: Within normal limits. MUSCULOSKELETAL: Multilevel degenerative changes of the spine. Bone island in the right inferior pubic ramus. IMPRESSION: 1. Multiple fluid-filled distended loops of small and large bowel are seen, nonspecific finding and can be seen in colitis. 2. Cholelithiasis 3. 3.6 cm left ovarian cyst. Nonemergent outpatient pelvic ultrasound is recommended for further evaluation. Reviewed, dictated and finalized at location N. IMPRESSION: 1. Multiple fluid-filled distended loops of small and large bowel are seen, no nspecific finding and can be seen in colitis. 2. Cholelithiasis 3. 3.6 cm left ovarian cyst. Nonemergent outpatient pelvic ultrasound is recom mended for further evaluation.
--- OUTSIDE RECORDS SUMMARY | 2025-04-25 10:48 | XMS_ITS | Patient Health Record ---
Author Organization [facility] Address [address] [facility] [address] [place] [address] Care Team Providers Care Oncology Research Rn Name Role Phone Don Mccarty Unavailable [phone] Reason For Referral No Information Medications Medication SIG (Take, Route, Frequency, Duration) Notes Start Date End Date Status buPROPion HCl ER (SR) 200 MG Tablet Extended Release 12 Hour Oral Active lamoTRIgine 150 MG Tablet Oral Active lamoTRIgine 200 MG Tablet Oral Active hydrOXYzine HCl 25 MG Tablet Oral Active Lactulose 10 GM/15ML Solution Oral Active metFORMIN HCl 850 MG Tablet Oral Active clonazePAM 0.5 MG Tablet Oral Active traZODone HCl 100 MG Tablet Oral Active Tradjenta 5 MG Tablet Oral Active Plan Of Treatment No Information Insurance Providers Payer Name Payer Address Payer Phone Subscriber Number Group Number Insured Name Patient Relationship to Insured Coverage Start Date Coverage End Date Medicare-I l Medicare [address] [place] [address] [id number] EMILIO ORTIZ Self - patient is the insured Medicaid-I l Medicaid [address] [address] [place] [address] [id number] EMILIO ORTIZ Self - patient is the insured
--- OUTSIDE RECORDS SUMMARY | 2025-04-25 10:48 | XMS_ITS | Clinical Summary ---
Author Organization [facility] Address [address] [address] Care Team Providers Care Offal Trimmer Name Role Phone Pj Carroll MD Primary Care Provider [phone] Source Comments [facility],non-owned Affiliates and Associated Physician Practices is amultiple site organization consisting of ambulatory clinics and hospital sitesin [place], [place], [place] and [place]. This disclosure is being madepursuant to the Care Everywhere program and may not contain all information available regarding this patient. Last updated 18.[facility] Allergies Active Allergy Reactions Criticality Noted Date [...] fluticasone propionate (Flonase) 50 MCG/ACT nasal spray Sullivan 2 (two) sprays into each nostril once [...] on file Legal Sex Female 6:24 AM DOPE HEATER Gender Identity Not on file Sexual Orientation [...] 5:20 PM CDT Height 165.1 cm (5' 5) 04/26/2024 5:20 PM CDT Body Mass Index [...] MAMMOGRAM 1974 MEDICARE AWV 12 MONTHS 1974 HIV SCREENING 1989 HEPATITIS C SCREENING 10/13/1992 DTAP/TDAP/TD VACCINES (1 - Tdap) 1993 HEPATITIS B VACCINE (1 of 3 - 19+ 3-dose series) 1993 PAP SMEAR 1995 COVID-19 VACCINE (3 - 2023-2 5 season) 2024 05/01/2021, 04/09/2021 DEPRESSION SCREENING 08/23/2024 PNEUMOCOCCAL VACCINE 50+ (1 of 1 - PCV) 2024 ZOSTER VACCINE (1 of 2) 2024 INFLUENZA VACCINE (#1) 2025 3, 06/12/2021, 06/16/2018 HIB VACCINE Aged Out No [...] patient's age [place] [address] MEDICARE Care Teams Offal Trimmer Relationship Specialty Start Date End Date Pj Carroll MD [address] [place] [address] PCP - General Family Medicine 03/04/24
--- OUTSIDE RECORDS SUMMARY | 2025-04-25 10:48 | XMS_ITS | Patient Health Record ---
Author Organization [facility] Address [address] [place] [address] Care Team Providers Care Outdoor Studies Director Name Role Phone Dr. Roberto Carroll Primary Care Provider [phone] Karl Robles Unavailable [phone] Kayli Mtz Unavailable [phone] Migration, Provider Unavailable Unavailable Allergies Allergen (clinical [...] 04/13/2022 Inactive Results Component Value Reference Range Flag Notes CBC With Differential/Platel et Reviewed date:06/27/2024 [...] Lab: Notes/Report: Vitamin D, 25-Hydroxy 30.5 ng/mL Hemoglobin A1c {Glycosylated } Reviewed date:03/22/2025 08:32:07 AM Interpretation: Performing Lab: Notes/Report: Test Performed by: Eleni Ruiz [address] [place] [address] Iron Installer: William Maxwell DO Report Forwarded By: [address] [address] Hemoglobin A1c 6.9 <=6.4 % H Hemoglobin A1C < 5.7% = Normal 5.7-6.4% = Increased risk for future diabetes >=6.5% = Diabetes eAvg Glucose 151 <=117 mg/dL H eAG Reference Range <117 mg/dL = Normal 117-137 mg/dL = Increased Risk For Future Diabetes >137 mg/dL = Diabetes Extra Gold SST Reviewed date:03/22/2025 08:32:07 AM Interpretation: Performing Lab: Notes/Report: Report Forwarded By: [address] [address] Charge Venipuncture Reviewed date:03/22/2025 08:32:07 AM Interpretation: Performing Lab: Notes/Report: Report Forwarded By: [address] [address] Event Monitor Reviewed date:02/14/2025 04:14:52 PM Interpretation: Performing Lab: Notes/Report: Reason For Referral Reason Bulging Cervical Dis c with spinal stenosis and cervicalgia Diagnosis 1 Bulging of cervical intervertebral disc (M50.30) Referral Organization [facility] Referring Provider First Name Kayli Referring Provider Last Name Bibi Referring Provider Speciality Nurse Prac titioner Referred Provider Specialty Neurosurgery General Notes Kalyi Mtz A PRBerkley 08/30/2024 04:39:40 PM HAND POTTER >Refer to Dr. Eleni Adrian at [facility] in [place], [place] (neurosurgeon), Olga Esparza 09/04/2024 11:19:09 AM HAND POTTER >Referral faxed to Arlen Ponce Cortney 09/12/2024 10:00:52 AM HAND POTTER >Received document stating Dr. Lewis received the referral and reviewed. They feel routine appt is adequate for this pt. and will be contacting her to schedule. Referral Priority Urgent Reason chronic constipation Diagnosis 1 Chronic constipation (K59.09) Referral Organization [facility] Referring Provider First Name Karl Referring Provider Last Name Travsi Referring Provider Speciality Physician Airplane Flight Attendant Referred Provider Polo Blanco Referred Provider Specialty Gastroentero logy General Notes Olga Esparza 0 10/12/2024 11:29:43 AM HAND POTTER >Faxed referral to Dr. Blanco [phone] Referral Priority Routine Medications Medication SIG (Take, Route, Frequency, Duration) Notes Start Date End Date Status traZODone HCl 100 MG Tablet 2 tablet Orally Once a day; Duration: 30 days at bedtime Active metFORMIN HCl 850 MG Tablet 1 Oral two times a day; Duration: 90 days Dose increase 06/29/2024 Active Amitiza 8 MCG Capsule 1 capsule with food and water Orally Twice a day Active traMADol HCl 50 MG Tablet 1 tablet as needed Orally every 8 hours; Duration: 30 days 08/30/2024 Not-Taking Emgality Pen subcutaneous; Duration: 0 *Reorder from [facility] for eRx and Interaction Alerts* 06/19/2024 Active Venlafaxine HCl ER 225 MG Tablet Extended Release 24 Hour 1 capsule Orally daily; Duration: 90 days Increased dosage. Active Diclofenac Sodium 75 MG Tablet Delayed Release 1 tablet Orally Twice a day; Duration: 21 days Active Lisinopril 5 MG Tablet 1 tablet Orally Once a day; Duration: 30 days Active Propranolol HCl 10 MG Tablet 1 tablet Orally every 12 hrs; Duration: 30 days As needed Not-Taking Cranberry 500 MG Capsule as directed Orally Active Linzess 290 MCG Capsule 1 capsule at least 30 minutes before the first meal of the day on an empty stomach Orally Once a day; Duration: 30 days As needed 09/19/2024 Not-Taking Lidocaine 5 % Patch 1 patch remove after 12 hours Externally Once a day; Duration: 14 days 08/30/2024 Not-Taking clonazePAM 0.5 MG Tablet TAKE 1 TABLET BY MOUTH EVERY DAY NEEDED; Duration: 30 04/08/2025 Active Immunizations Vaccine Route Administration Date Status Comme nts Tdap IM Intramuscular 12/01/2024 Administered Pfizer-Biontech Covid-19 Vaccine 1st dose Unknown 04/09/2021 Administered ,sourcename : Historical information -from other provider Source VFC Code: : Pfizer-Biontech Covid-19 Vaccine 1st dose Unknown 05/01/2021 Administered [facility] ,sourcename : Historical information -source unspecified [...] Problem Status W/U Status Risk Notes Problem Information temporarily unavailable Hypothyroidism, unspecified (E03.9) Active confirmed Problem Information temporarily unavailable Obesity, unspecified (E66.9) Active confirmed Problem Information temporarily unavailable Other chronic pain (G89.29) Active confirmed Problem Information temporarily unavailable Cervicalgia (M54.2) Active confirmed Problem Information temporarily unavailable Bulging of cervical intervertebral disc (M50.30) Active confirmed Problem Information temporarily unavailable Herpesviral infection of urogenital system, 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) 3 Active confirmed Problem Information temporarily unavailable Type 2 diabetes mellitus with hyperglycemia (E11.65) 4 Active confirmed Problem Information temporarily unavailable Major depressive disorder, recurrent, moderate (F33.1) 3 Active confirmed Problem Information temporarily unavailable Unspecified dyspareunia (N94.10) 3 Active confirmed Problem Information temporarily unavailable High risk heterosexual behavior (Z72.51) 3 Active confirmed Problem Information temporarily unavailable Paresthesia of skin (R20.2) 4 Active confirmed Problem Information temporarily unavailable 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) 3 Active confirmed Problem Information temporarily unavailable Other specified abnormal uterine and vaginal bleeding (N93.8) 3 Active confirmed Problem Information temporarily unavailable Insomnia, unspecified (G47.00) 4 Active confirmed Problem Information temporarily unavailable Mental disorder, not otherwise specified (F99) 1 Active confirmed Problem Information temporarily unavailable Anxiety disorder, unspecified (F41.9) 3 Active confirmed Problem Information temporarily unavailable Overweight (E66.3) 4 Active confirmed Problem Information temporarily unavailable Generalized hyperhidrosis (R61) 4 Active confirmed Problem Information temporarily unavailable Migraine, unspecified, not intractable, without status migrainosus (G43.909) 4 Active confirmed Problem Information temporarily unavailable Flushing (R23.2) 4 Active confirmed Problem Information temporarily unavailable Palpitations (R00.2) 4 Active confirmed Problem Information temporarily unavailable Essential (primary) hypertension (I10) 4 Active confirmed Problem Information temporarily unavailable Tinnitus, bilateral (H93.13) 4 Active confirmed Problem Information temporarily unavailable Vitamin D deficiency, unspecified (E55.9) 1 Active confirmed Vital Signs Heart Rate 98 /min 02/01/2025 Temperature 98.6 degrees Fahrenheit 02/01/2025 Respiratory Rate 16 /min 08/30/2024 Blood pressure diastolic 72 mm Hg 02/01/2025 Height-cm 165.1 cm 02/01/2025 Oximetry 97 % 02/01/2025 Weight-kg 91.58 kg 02/01/2025 Height 65.00 in 02/01/2025 Blood pressure systolic 118 mm Hg 02/01/2025 Weight 201.9 lbs 02/01/2025 BMI 33.59 kg/m2 02/01/2025 Encounters Encounter Location Date Provider Diagnosis [address] [address] 06/19/2024 Kayli Mtz Palpitations R00.2 ; Anxiety disorder, unspecified F41.9 ; Generalized hyperhidrosis R61 ; Flushing R23.2 and Essential (primary) hypertension I10 [address] [address] 06/29/2024 Kayli Mtz Type 2 diabetes mellitus with hyperglycemia E11.65 ; Essential (primary) hypertension I10 ; Anxiety disorder, unspecified F41.9 and Overweight E66.[address] [address] 08/30/2024 Kayli Mtz Cervical spinal stenosis M48.02 ; Bulging of cervical intervertebral disc M50.30 and Cervicalgia M54.[address] [address] 09/14/2024 Karl Robles Type 2 diabetes mellitus with hyperglycemia E11.65 and Chronic constipation K59.[address] [address] 12/01/2024 Dr. Roberto Carroll Type 2 diabetes mellitus with hyperglycemia E11.65 ; Vitamin D deficiency, unspecified E55.9 ; Essential (primary) hypertension I10 ; Screening mammogram for breast cancer Z12.31 ; Encounter for immunization Z23 ; Obesity, unspecified E66.9 ; Lumbar back pain M54.50 and Hypothyroidism, unspecified E03.[address] [address] 12/15/2024 [facility] Upper respiratory tract infection, unspecified type J06.9 and Bilateral impacted cerumen H61.[address] [address] 12/27/2024 Kayli Mtz Acute non-recurrent maxillary sinusitis J01.00 and Nasal sinus congestion R09.[address] [address] 01/04/2025 [facility] Palpitations R00.2 a nd Essential (primary) hypertension I10 [address] [address] 02/01/2025 [facility] Essential (primary) hypertension I10 ; Palpitations R00.2 and Major depressive disorder, recurrent, moderate F33.[address] [address] 07/22/2024 Provider Migration [address] [address] 07/23/2024 Provider Migration [address] [address] 08/30/2024 Dr. Roberto Carroll [address] [address] 08/31/2024 Dr. Roberto Carroll Cervicalgia M54.2 ; Bulging of cervical intervertebral disc M50.30 and Cervical spinal stenosis M48.[address] [address] 09/15/[address] [address] 09/15/[address] [address] 09/18/[address] [address] 11/02/2024 Dr. Roberto Carroll [address] [address] 11/17/2024 Dr. Roberto Carroll [address] [address] 11/24/2024 Dr. Roberto Carroll [address] [address] 01/03/2025 Dr. Roberto Carroll [address] [address] 02/19/2025 [facility] Assessments Encounter Date Diagnosis (ICD Code) Assessment [...] R23.2) 06/19/2024 Generalized hyperhidrosis (ICD-10 - R61) 01/04/2025 Essential (primary) hypertension (ICD-10 - I10) 01/04/2025 Palpitations (ICD-10 - R00.2) - Blood pressure readings at home are consistently higher (140s-150s/80-90 mmHg) compared to the office reading of 132/78 mmHg. The discrepancy may be due to the inaccuracy of the home blood pressure cuff. Continue lisinopril 5 mg. Bring in cuff to compare BP measurements.- Heart palpitations have been occurring since July, prior to starting lisinopril. Heart rate at home ranges from 90s to low 100s, with occasional spikes to 110-120 bpm. Previous 30-day heart monitor was normal.- Order a 7-day heart monitor to evaluate the palpitations. Continue monitoring heart rate at home using a watch. Schedule follow-up in four weeks to discuss monitor results and check BP.- Avoid antihistamines and decongestants as they may increase BP and heart rate. May continue flonase or trial nasocort or nasal rinses. 12/27/2024 Acute non-recurrent maxillary sinusitis (ICD-10 - J01.00) - Will start oral antibiotic to treat for possible bacterial sinus infection; take with food; discussed potential side effects including: photosensitivity, n/v/d. - Rest & hydration - Saline nasal sprays or rinses (like a Neti pot) - Can use Flonase nasal spray daily for nasal congestion - Warm compresses for facial pain - Hpao-czl-zfqhcft meds such as: Acetaminophen/Ibup rofen for pain/fever, Decongestants (short-term use only), Antihistamines if allergies are a trigger - F/U as recommended 12/27/2024 Nasal sinus congestion (ICD-10 - R09.81) 12/15/2024 Bilateral impacted cerumen (ICD-10 - H61.23) 12/15/2024 Upper respiratory tract infection, unspecified type (ICD-10 - J06.9) 09/14/2024 Type 2 diabetes mellitus with hyperglycemia (ICD-10 - E11.65) Recommend glucose be taken on a scheduled basis, 1-2 hours after a large meal and once fasting would be a good routine to correlate sugar levels. A1c obtained. If post meal sugars are high may target with alternative diabetes medication. Continue metformin, previous A1c 3 months ago was 6.7. 02/01/2025 Essential (primary) hypertension (ICD-10 - I10) 08/31/2024 Cervicalgia (ICD-10 - M54.2) 08/31/2024 Bulging of cervical intervertebral disc (ICD-10 - M50.30) 12/01/2024 Type 2 diabetes mellitus with hyperglycemia (ICD-10 - E11.65) 12/01/2024 Vitamin D deficiency, unspecified (ICD-10 - E55.9) 08/30/2024 Cervicalgia (ICD-10 - M54.2) 12/01/2024 Essential (primary) hypertension (ICD-10 - I10) 08/31/2024 Cervical spinal stenosis (ICD-10 - M48.02) 02/01/2025 Palpitations (ICD-10 - R00.2) - Ongoing palpitations with episodes of dizziness. Awaiting results from heart monitor sent back on Wednesday (January 29, 2025). No current evidence of dyspnea or chest pain. Blood pressure well controlled on lisinopril 5 mg. - Await heart monitor results. May need cardiology referral for further eval, consider meds to slow HR is sinus.- Ongoing depression, not adequately controlled on venlafaxine. Longstanding history of anxiety and depression with multiple prior medication trials. No evidence that current palpitations are due to anxiety or panic attacks.- Perform gene site (pharmacogenomic) testing to guide future psychiatric medication choices. Await heart monitor results before adding or changing psychiatric medications. 09/14/2024 Chronic constipation (ICD-10 - K59.09) Linzess samples given to patient, 1 sample of 72mg and 1 of 290mg. KUB ordered to evaluate stool burden. Continue regimen with miralax and stool softeners. May continue enemas or suppositories PRN. Recommend trying senna again. Sending referral to GI for further eval of chronic constipation. 02/01/2025 Major depressive disorder, recurrent, moderate (ICD-10 - F33.1) 12/01/2024 Screening mammogram for breast cancer (ICD-10 - Z12.31) 12/01/2024 Encounter for immunization (ICD-10 - Z23) 12/01/2024 Obesity, unspecified (ICD-10 - E66.9) 12/01/2024 Lumbar back pain (ICD-10 - M54.50) 12/01/2024 Hypothyroidism, unspecified (ICD-10 - E03.9) 12/15/2024 Other - Ear pressure and hearing loss likely due to earwax buildup and inner ear effusion, which may also contribute to balance issues.- Recommend using vfle-zyl-npdzfak ear drops like Debrox to soften the wax. May return for in office cleaning as well. - Take antihistamine and flonse to help facilitate drainage of fluid in ears.- Sinus congestion and facial pressure possibly related to previous sinus surgery and current drainage issues.- Initiate azithromycin, discussed risk and benefit of med. Suggest using antihistamines like Claritin, Jessa, or Zyrtec, and possibly Mucinex, to manage congestion. Discussed the use of Flonase to facilitate drainage over the next week or two.- Call or return to office if not improving with treatment. Plan Of Treatment Pending Test Test Name [...] fountain, 12/03/2025 10:00:00 AM, [address] [place], [address], [phone] Insurance Providers Payer Name Payer Address Payer Phone Subscriber Number Group Number Insured Name Patient Relationship to Insured Coverage Start Date Coverage End Date NGS Medicare RHC [address] [facility] [place] [address] [id number] Anuja Schwab Self - patient is the insured [facility] [address] [address] [place] [address] [id number] Anuja Schwab Self - patient is the insured [address] [facility] Medicare B [address] [place] [address] [id number] ZaheerAnuja morocho Self - patient is the insured Medical [...]
--- OUTSIDE RECORDS SUMMARY | 2025-04-25 10:48 | XMS_ITS | Clinical Summary ---
Author Organization [facility] Address [address] [place] [address] Care Team Providers Care [employer] Art Teacher Name Role Phone Roberto Carroll MD Primary Care Provider [phone] Social History Tobacco Use Types Packs/Day Years Used Date Smoking Tobacco: Never Assessed Comments Unknown Sex and Gender Information Value Date Recorded Sex Assigned at Female 09/14/2024 10:36 AM TEAROOM HOSTESS Legal Sex Female 7:49 AM CDT Gender Identity Not on file Sexual Orientation Not on file Last Filed Vital Signs Vital Sign Reading Time Taken Comments Blood Pressure 118/80 09/16/2015 2:13 PM TEAROOM HOSTESS Pulse 88 09/16/2015 2:13 PM TEAROOM HOSTESS Temperature - - Respiratory Rate - - Oxygen Saturation - - Inhaled Oxygen Concentration - - Weight 98.9 kg (218 lb) 09/16/2015 2:13 PM TEAROOM HOSTESS Height 165.1 cm (5' 5) 04/22/2015 2:35 PM CDT Body Mass Index 36.28 04/22/2015 2:35 PM CDT Plan of Treatment Health Maintenance [...] ( season) 2024 05/01/2021, 04/09/2021 PHQ-2 (Physician [place]) 08/23/2024 Zoster Vaccines (1 of 2) 2024 [...] Procedure Name Priority Date/Time Associated Diagnosis Comments EVENT RECORDER (ECG) UP TO 30 DAYS COMPLETE Routine 02/02/2025 1:46 PM CDT Palpitations LIPID PANEL Routine 01/27/2021 10:18 AM CDT HEMOGLOBIN, GLYCOSYLATED Routine 01/27/2021 10:18 AM CDT THINPREP IMAGING PAP REFLEX HPV MRNA E6/E7 Routine 02/15/2013 4:58 PM CDT from Last 3 Months or Most Recently Relevant to Health Maintenance Results * CLINIC - OUTPATIENT EVENT RECORDER (ECG) UP TO 30 DAYS COMPLETE (Holter) (02/02/2025 1:46 PM CDT) Narrative [facility] - 02/02/2025 1:46 PM CDT Invasive Clinical Cardiac Electrophysiology AMBULATORY PUMP TECHNICIAN REPORT Patient Name: Anuja Schwab : 1975 CSN: [id number] Date of Testin01.20.2025 - 01.26.2025 Date of Report: 02.02.2025 Type of Cardiac Ambulatory Monitor: Mobile Cardiac Telemetry Ordering Provider: WONG Ross Indication: Palpitations FINDINGS: The patient underwent cardiac monitoring for a total of 06 days, 02 hours and 12 minutes. Baseline Rhythm * The baseline rhythm was Sinus Rhythm with heart rates ranged between 65 and 142 beats per minute, with average rate of 84 beats per minute. A-V Conduction * No Second Degree AV Block Type II. * No Third Degree AV Block. * No Pauses. Supraventricular Arrhythmia * There were 843 Supraventricular Ectopic beats with a burden of <1%. * No Supraventricular Tachycardia. Ventricular Arrhythmia * There were 15 Ventricular Ectopic beats with a burden of <1%. * No Ventricular Tachycardia. Atrial Fibrillation * No Atrial Fibrillation. Patient Triggered Events * 6 patient triggered events, 3 had symptoms specified; these correlated with sinus rhythm. SUMMARY: Sinus node function was normal. A-V conduction was normal. No significant abnormalities were noted. Robin More MD. MS. Invasive Clinical Cardiac Electrophysiology Department of Cardiovascular Medicine Office: [phone] Karl BACK CV VASCULAR ORDERABLES Fin al Result Performing Organization Address City/[facility] Co de Phone Number [facility] * HEMOGLOBIN, GLYCOSYLATED (01/27/2021 10:18 AM CDT) HGB A1C 5.3 4.2 - 6.3 % [facility] Comment: Note: Hemoglobinopathies such as HbF, HbS, etc. may give incorrect results with this test. ESTIMATED AVG GLUCOSE 90 mg/dL [facility] Comment: (This value is a calculated estimate of the mean blood glucose over the last 60 days based on the patient's HgbA1c value. 01/27/2021 10:1 8 AM CDT 01/27/2021 10:18 AM CDT us Maria E Betancur MD LABORATORY Final Result Performing Organization Address [facility] Co de Phone Number [address] [place] [address] * LIPID PANEL (01/27/2021 10:18 AM CDT) CHOLESTEROL 141 0 - 200 mg/dL [facility] TRIGLYCERIDES 139 0 - 150 mg/dL [facility] HDL 54 40 - 60 mg/dL [facility] LDL (CALCULATED) 59 10 - 130 mg/dL [facility] CARDIO RISK 3 [facility] Comment: CHOLESTEROL LEVELS AND CHD RISK [...] Maria E Betancur MD LABORATORY Final Result [address] [address] * THINPREP IMAGING PAP REFLEX HPV MRNA E6/E7 (02/15/2013 4:58 PM CDT) REFLEX ADDED no [facility] P TO EPIC CONVERSION 02/15/2013 4:58 PM CDT 02/15/2013 4:58 PM CDT Narrative [facility] TO EPIC CONVERSION - 02/15/2013 4:58 PM CDT This lab was migrated from [facility] and may be missing annotations or result text, please check the Media tab for the most complete results. us Nely Solano MD PATHOLOGY/CYTOLOGY ORDER MISA Final Result [facility] TO EPIC CONVERSION from Last 3 Months or Most Recently Relevant to Health Maintenance Insurance MEDICARE Care Teams Elementary [employer] Art Teacher Relationship Specialty Start Date End Date Roberto Carroll MD [address] [place] [address] PCP - General PEDIATRICS 05/25/22
--- OUTSIDE RECORDS SUMMARY | 2025-04-25 10:48 | XMS_ITS | Patient Health Record ---
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 Pj Carroll Primary Care Provider Dr. Robin Bales Unavailable [phone] Aimee Mendez Unavailable [phone] Allergies Allergen (clinical drug ingredient) Drug/Non Drug Allergy documented on EMR Reaction Allergy Type Onset Date Status DARVOCET (uncoded) rash Allergy A ctive penicillin V Penicillin V Potassium rash Drug Allergy Active Reason For Referral No Information Medications Medication SIG (Take, Route, Frequency, Duration) Notes Start Date End Date Status Amitiza 24 MCG Oral; Duration: 30 Days Active Diclofenac Sodium 75 MG Oral; Duration: 21 Days Active Lisinopril 5 MG Oral; Duration: 30 Days Active Doxycycline Hyclate 100 MG Oral; Duration: 7 Days Active Emgality 120 MG/ML 2 injections as LOADING DOSE for the first month Subcutaneous once; Duration: 28 days 09/13/2024 Active Venlafaxine HCl ER 150 MG 1 cap(s) orally once a day Active Zavzpret 10 MG 1 SPRAY INTRANASALLY ONCE DAILY, NO REPEAT DOSE *Please review and pick correct strength-formulat ion from Medispan options. If intended option is not shown, discontinue and re-order from Quick Search* 12/15/2023 Active Emgality 120 MG/ML 1 injection as maintenance dose Subcutaneous once every 4 weeks To start 4 weeks after the loading dose 10/11/2024 Active clonazePAM 0.5 MG 1 tab(s) orally 2 times daily Active Rizatriptan Benzoate 10 MG 1 tab orally once, can repeat x1 after 2-4 hours; Duration: 30 days 11/11/2023 Not-Taking traZODone HCl 50 MG as directed orally Active Valium 5 MG 1 tab orally 20 minutes prior to MRI; Duration: 1 days 11/11/2023 Not-Taking Social History Tobacco Use: Social History Observation Description Date Details (start date - stop date) Never Smoker NA - NA Sex Assigned At : Social History Observation Description Sex Assigned At Female Tobacco Control (Standard) Question Answer Notes Tobacco use: Nonsmoker Problems Problem Type SNOMED Code ICD Code Onset Dates Problem Status W/U Status Risk Notes Problem Information temporarily unavailable Migraine without aura, not intractable, without status migrainosus (G43.009) Active confirmed Problem Information temporarily unavailable Migraine with aura, not intractable, without status migrainosus (G43.109) Active confirmed Problem Information temporarily unavailable Chronic migraine without aura, not intractable, without status migrainosus (G43.709) Active confirmed Problem Information temporarily unavailable Drug-induced headache, not elsewhere classified, not intractable (G44.40) Active confirmed Problem Information temporarily unavailable Other cervical disc degeneration, unspecified cervical region (M50.30) Active confirmed Problem Information temporarily unavailable Cervicalgia (M54.2) Active confirmed Problem Information temporarily unavailable Fibromyalgia (M79.7) Active confirmed Problem Information temporarily unavailable Paresthesia of skin (R20.2) Active confirmed Problem Information temporarily unavailable Chronic fatigue, unspecified (R53.82) Active confirmed Problem Information temporarily unavailable Myalgia, unspecified site (M79.10) Active confirmed Vital Signs Respiratory Rate 17 /min 06/29/2024 Oximetry 98 % 12/28/2024 Blood pressure diastolic 85 mm Hg 12/28/2024 Height 65 in 12/28/2024 Blood pressure systolic 136 mm Hg 12/28/2024 Weight 194.8 lbs 12/28/2024 BMI 32.41 kg/m2 12/28/2024 Encounters Encounter Location Date Provider Diagnosis [facility] [address] [place] [address] 06/29/2024 Aimee Mendez Migraine without aura, not intractable, without status migrainosus G43.009 ; Fibromyalgia M79.7 and Cervicalgia M54.2 [facility] [address] [address] 12/28/2024 Aimee Mendez Migraine without aura, not intractable, without status migrainosus G43.009 ; Fibromyalgia M79.7 and Cervicalgia M54.2 [facility] [place] [address] 06/28/2024 [place] [facility] [address] [address] 09/05/2024 Aimee Mendez Migraine without aura, not intractable, without status migrainosus G43.009 Assessments Encounter Date Diagnosis (ICD Code) Assessment Notes Treatment Notes Treatment Clinical Notes Section Notes 06/29/2024 Fibromyalgia (ICD-10 - M79.7) Continue venlafaxine at present dose. 09/05/2024 Migraine without aura, not intractable, without status migrainosus (ICD-10 - G43.009) 12/28/2024 Migraine without aura, not intractable, without status migrainosus (ICD-10 - G43.009) -Abortive treatment plan: Continue Zavzpret. -Preventive treatment plan: Continue Emgality. Consider a trial of propranolol 10 mg qhs to help with migraine, BP and tachycardia in 3-4 weeks if symptoms have not improved. -Educated the patient on migraine lifestyle recommendations. [...] as supplements; keep scheduled follow-up appointments 06/29/2024 Migraine without aura, not intractable, without [...] daily as supplements; keep scheduled follow-up appointments 12/28/2024 Fibromyalgia (ICD-10 - M79.7) Continue venlafaxine at current dose. 06/29/2024 Cervicalgia (ICD-10 - M54.2) Continue venlafaxine at present dose. 12/28/2024 Cervicalgia (ICD-10 - M54.2) Continue venlafaxine at current dose. Plan Of Treatment Pending Test Test Name Order Date -Hemoglobin A1c 11/11/2023 -Hemoglobin A1c 12/15/2023 -Vitamin D, 25-Hydroxy 12/15/2023 -Vitamin D, 25-Hydroxy 11/11/2023 MRI : Brain (with and without gadolinium ) 11/11/2023 MRI : Spine, Cervical (with and without gadolinium) 11/11/2023 Insurance Providers Payer Name Payer Address Payer Phone Subscriber Number Group Number Insured Name Patient Relationship to Insured Coverage Start Date Coverage End Date [employer] (Medicare) Attention Claims [address] [place] [address] [id number] Anuja Schwab Self - patient is the insured Medical (General) History Medical History History ICD Code Obesity Prior h/o diabetes meliitus - reports re solved after weight loss Depression Migraine Fibromyalgia Other specified diabetes mellitus withou t complications E13.9
--- OUTSIDE RECORDS SUMMARY | 2025-04-25 10:49 | XMS_ITS | Clinical Summary ---
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 Gender Identity Not on file Sexual Orientation [...] 10:04 AM CDT Height 165.1 cm (5' 5) 03/26/2023 10:04 AM CDT Body Mass Index 26.63 03/26/2023 10:04 AM CDT Plan of Treatment Health Maintenance Due Date Last Done Comments Breast Cancer Screening-Mammogram 1975 Cervical Cancer Screening 1975 Colon Cancer Screening-Colonoscopy 1975 Depression Screening 1975 Hepatitis C Screening 1975 DTaP/Tdap/Td Vaccine (1 - Tdap) 1985 Hepatitis B Screening 1992 Regular Well Visit/Exam 18-64 1992 Zoster Vaccine (1 of 2) 2024 Influenza Vaccine (#1) 2025 Pneumococcal vaccine <65 Aged Out No longer eligible based on patient's age to complete [place] [address] [place] [address] MEDICARE IDPA Care Teams Director Of Software Engineering Relationship Specialty Start Date End Date Karl Robles PCP - General 10/20/23
== END 2025-04-25 09:50 | disposition home or self-care (01) ==
PROVIDERS: PCP Pediatrics; Visit Provider Nurse Practitioner Family
DX: K59.00 Constipation, unspecified (principal); R14.0 Abdominal distension (gaseous); R10.9 Unspecified abdominal pain; K80.20 Calculus of gallbladder without cholecystitis without obstruction; N83.202 Unspecified ovarian cyst, left side
CPT/HCPCS: 74177; Q9967

== ENCOUNTER 2025-07-24 12:51 | Outpatient (CLI) | payer MEDICARE, SELFPAY ==
--- NOTE | ~2025-07-24 | CT_ITS ---
EXAMINATION: CT sinus wo con DATE: 07/24/2025 13:09 INDICATION: Chronic sinusitis TECHNIQUE: Computed tomography (CT) of the paranasal sinuses was performed without intravenous contrast. The dose-length product was 299.51 mGy-cm. COMPARISON: CT dated 10/05/2023 FINDINGS: There is mucosal thickening of the right maxillary sinus with mucoperiosteal reaction surrounding a partially visualized to. Mastoids are pneumatized. Mild rightward nasal septal deviation. There are surgical changes of resection of the right ostiomeatal unit. Mastoids are pneumatized. IMPRESSION: 1. Mild chronic right maxillary sinus disease. Reviewed, dictated and finalized at location I. ES 7 AND 8 TEACHER
--- OUTSIDE RECORDS SUMMARY | 2025-07-24 13:42 | XMS_ITS | Clinical Summary ---
Author Organization [facility] Address [address] [address] Care Team Providers Care Physical Scientist Name Role Phone Pj Carroll MD Primary Care Provider [phone] Source Comments [facility],non-owned Affiliates and Associated Physician Practices is amultiple site organization consisting of ambulatory clinics and hospital sitesin [place], [place], [place] and [place]. This disclosure is being madepursuant to the Care Everywhere program and may not contain all information available regarding this patient. Last updated 18.[facility] Allergies Active Allergy Reactions Criticality Noted Date [...] fluticasone propionate (Flonase) 50 MCG/ACT nasal spray [place] 2 (two) sprays into each nostril once daily as needed (congestion) 1 Each 4 Active metoclopramide (Reglan) 10 MG tablet Take 1 (one) tablet by mouth 3 times daily before meals 12 tablet 4 Active Encounters Date Type Department Care Team Description 05/10/2025 Travel from Last 3 Months Social History Tobacco Use Types Packs/Day Years Used Date Smoking Tobacco: Never Assessed Comments Unknown Sex and Gender Information Value Date Recorded Sex Assigned at Not on file Legal Sex Female 6:24 AM FREIGHT SHIPPING AGENT Gender Identity Not on file Sexual Orientation [...] 04/26/2024 5:20 PM CDT Plan of Treatment Upcoming Encounters Date Type Department Care Team (Late st Contact Info) Description 10/11/2025 10:00 AM FREIGHT SHIPPING AGENT Office Visit [facility] [address] [place] [phone] Health Maintenance Due Date Last Done Comments [...] 19+ 3-dose series) 1993 Cervical Cancer Screening 1995 PAP SMEAR 1995 PAP with HPV 2004 DEPRESSION SCREENING 08/23/2024 PNEUMOCOCCAL VACCINE 50+ (1 of 1 - PCV) 2024 ZOSTER VACCINE (1 of 2) 2024 COVID-19 VACCINE (3 - 2024-2 6 season) 2025 05/01/2021, 04/09/2021 INFLUENZA VACCINE (#1) 2025 , 06/12/2021, 06/16/2018 HIB VACCINE Aged Out No [...] patient's age to complete this topic Insurance MEDICARE Care Teams Physical Scientist Relationship Specialty Start Date End Date Pj Carroll MD [address] [place] [address] PCP - General Family Medicine 03/04/24
--- OUTSIDE RECORDS SUMMARY | 2025-07-24 13:42 | XMS_ITS | Clinical Summary ---
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
--- OUTSIDE RECORDS SUMMARY | 2025-07-24 13:42 | XMS_ITS | Clinical Summary ---
Author Organization [facility] Address [address] [place] [address] Care Team Providers Care Nickel Operator Name Role Phone Roebrto Carroll MD Primary Care Provider [phone] Social History Tobacco Use Types Packs/Day Years Used Date Smoking Tobacco: Never Assessed Comments Unknown Sex and Gender Information Value Date Recorded Sex Assigned at Female 09/14/2024 10:36 AM PROGRAM DIRECTOR/MORNING SHOW HOST Legal Sex Female 7:49 AM CDT Gender Identity Not on file Sexual Orientation Not on file Last Filed Vital Signs Vital Sign Reading Time Taken Comments Blood Pressure 118/80 09/16/2015 2:13 PM PROGRAM DIRECTOR/MORNING SHOW HOST Pulse 88 09/16/2015 2:13 PM PROGRAM DIRECTOR/MORNING SHOW HOST Temperature - - Respiratory Rate - - Oxygen Saturation - - Inhaled Oxygen Concentration - - Weight 98.9 kg (218 lb) 09/16/2015 2:13 PM PROGRAM DIRECTOR/MORNING SHOW HOST Height 165.1 cm (5' 5) 04/22/2015 2:35 [...] history exists Lipid Panel 01/27/2022 01/27/2021, 10/02/2019 PHQ-2 (Physician [place]) 08/23/2024 Zoster Vaccines (1 of 2) 2024 COVID-19 Vaccine (3 - season) 2025 05/01/2021, 04/09/2021 Influenza Adult (#1) 2025 06/01/2023, 06/12/2021, 06/16/2018, Additional history exists Hepatitis A Vaccines Aged Out No long er eligible based on patient's age to complete this topic Meningococcal B Vaccine Aged Out No l [...] HGB A1C 5.3 4.2 - 6.3 % [facility] Comment: Note: Hemoglobinopathies such as HbF, HbS, etc. may give incorrect results with this test. ESTIMATED AVG GLUCOSE 90 mg/dL [facility] Comment: (This value is a calculated estimate of the mean blood glucose over the last 60 days based on the patient's HgbA1c value. 01/27/2021 10:1 8 AM CDT 01/27/2021 10:18 AM CDT us Maria E Betancur MD LABORATORY Final Result Performing Organization Address [facility] [place] [address] * LIPID PANEL (01/27/2021 10:18 AM CDT) CHOLESTEROL 141 0 - 200 mg/dL [facility] TRIGLYCERIDES 139 0 - 150 mg/dL [facility] HDL 54 40 - 60 mg/dL [facility] LDL (CALCULATED) 59 10 - 130 mg/dL [facility] CARDIO RISK 3 [facility] Comment: CHOLESTEROL LEVELS AND CHD [...] MD LABORATORY Final Result Performing Organization Address [facility] Co de Phone Number [address] [address] * THINPREP IMAGING PAP REFLEX HPV MRNA E6/E7 (02/15/2013 4:58 PM CDT) REFLEX ADDED no [facility] P TO EPIC CONVERSION 02/15/2013 4:58 PM CDT 02/15/2013 4:58 PM CDT Narrative [facility] TO EPIC CONVERSION - 02/15/2013 4:58 PM CDT This lab was migrated from [facility] and may be missing annotations or result text, please check the Media tab for the most complete results. us Nely Solano MD PATHOLOGY/CYTOLOGY ORDER MISA Final Result [facility] TO EPIC CONVERSION from Last 3 Months or Most Recently Relevant to Health Maintenance Insurance MEDICARE Care Teams Nickel Operator Relationship Specialty Start Date End Date Roberto Carroll MD [address] [place] [address] PCP - General PEDIATRICS 05/25/22
== END 2025-07-24 12:52 | disposition home or self-care (01) ==
PROVIDERS: PCP Nurse Practitioner Family; Visit Provider Otolaryngology
DX: J32.0 Chronic maxillary sinusitis (principal)
CPT/HCPCS: 70486

== ENCOUNTER 2025-08-03 14:21 | Outpatient (CLI) | payer MEDICARE, SELFPAY | END 2025-08-03 14:22 | disposition home or self-care (01) | LOC: ANHAUDIO 14:22 | PROVIDERS: PCP Nurse Practitioner Family; Visit Provider Otolaryngology | DX: H93.13 Tinnitus, bilateral (principal) | CPT/HCPCS: 92557; 92567 ==